=== PATIENT | female | born 1965 | race Caucasian/White ===

== ENCOUNTER 2016-03-23 12:17 | Inpatient (IN) ==
[2016-03-23] MEDS ORDERED: TORADOL IV SCH (15:00)
[2016-03-23] MEDS: PROTONIX IV SCH (15:45)
[2016-03-23] MEDS: SODIUM CHLORIDE 0.9% INJ SCH (15:45)
[2016-03-23] MEDS: LOVENOX SUBQ SCH (15:47)
[2016-03-23] MEDS ORDERED: NS 500 ML ONE (15:48)
[2016-03-23] MEDS: ZOSYN 3.375 GM/NS 50 ML IV SCH ×2 (15:48→20:34)
[2016-03-23 15:53] LABS: BASO% 0.1 % (0.0-0.8); EOS# 0.26 X1000 (0.0-0.7); EOS% 1.3 % (0.0-10.0); HEMATOCRIT 34.7 % (37.0-47.0); HEMOGLOBIN 11.4 g/dL (12.0-16.0); IMM GRAN# 0.07 X1000 (0.0-0.04); IMM GRAN% 0.3 % (0.0-0.5); LYMPH# 2.61 X1000 (1.2-3.4); MANUAL DIFF NEEDED? YES; MCH 29.5 PG (27-31); MCHC 32.9 g/dL (33-37); MCV 89.7 FL (81-99); MONO# 1.16 X1000 (0.11-0.59); MONO% 5.8 % (1.7-9.3); MPV 10.6 FL (7.4-10.4); NEUT% 79.5 % (42.2-75.2); PLT 303 X1000 (130-400); RBC 3.87 XMIL (4.2-5.4)
[2016-03-23 16:06] LABS: AGAP 14; BUN 7 mg/dL (8-22); CALCIUM 8.8 mg/dL (8.8-10.2); CHLORIDE 107 mmol/L (98-107); COSMO 285; LDH 411 U/L (135-214); POTASSIUM 3.3 mmol/L (3.5-5.1); SODIUM 144 mmol/L (136-145); TCO2 23 mmol/L (25-35)
[2016-03-23 16:07] LABS: BANDS 2 % (0-1); LYMPHS 12 % (21-51); MONO 10 % (1-9)
[2016-03-23] MEDS: NS 500 ML IV SCH (16:10)
[2016-03-23] MEDS: DUONEB (A & A) INH PRN ×2 (16:41→23:04)
[2016-03-23 16:48] LABS: SED RATE 54 mm/hr (0-20)
[2016-03-23 16:51] LABS: ALLEN TEST YES; BE -1.5 mmoll (-3.0-3.0); BLOOD TYPE ARTERIAL; DRAW SITE R RADIAL; METHB 1.5 % (0.0-1.5); MODALITY CANNULA; O2(CT) 21.2 mL/dL (15.0-23.0); PCO2(98.6) 37 mmHg (35-45); PO2(98.6) 64 mmHg (60-100); SAMPLE BLOOD; SAO2 95.2 % (95.0-100.0); THB 16.6 g/dL (11.5-17.4)
[2016-03-23] MEDS: LEVAQUIN 500 MG/D5W 100 ML IV SCH (17:14)
[2016-03-23] MEDS: TORADOL IV SCH ×2 (20:29→23:58)
[2016-03-23] MEDS ORDERED: KLOR-CON PO ONE (22:04)
--- NOTE | 2016-03-23 23:39 | HISTORY AND PHYSICAL ---
CHIEF COMPLAINT: Shortness of breath, cough, wheezing and back pain. HISTORY OF PRESENT ILLNESS: She is a 49-year-old, white female, who was evaluated on in my office with the above symptoms. She was treated with outpatient antibiotics. She is allergic to mold, causing extrinsic allergic alveolitis. Apparently, she did expose again and then started having this severe back pain, shortness of breath, cough, and wheezing. She was seen in my office today with worsening of infiltrates, hypoxemia, back pain, elevated white cell count. Chest x-ray right lower lobe infiltrate. Admitted to the hospital with aggressive bronchodilators, IV steroids, IV antibiotics, IV Toradol. As a result, a hospital admission was warranted. PAST MEDICAL HISTORY: Abnormal EKG with Q-waves in V1 and V2, chronic tobacco abuse, depression with anxiety, acid reflux disease, hypertension, menopause, nicotine dependency , vitamin B12 deficiency. PAST SURGICAL HISTORY: Bilateral reduction mammoplasty, cholecystectomy, hysterectomy, follow up on lung biopsy, left hip arthroplasty by Dr. Chawla. MEDICATIONS: Nexium 40 mg daily, Cymbalta 60 daily, Xanax 0.25 daily, tramadol 50 t.i.d., Levaquin. ALLERGIES: Not known. SOCIAL HISTORY: , 3 children. Self-employed. Smoking 1 pack a day for last 23 years. Living in [place]. No alcohol. FAMILY HISTORY: Father is 70 years old, having some diabetes complications. Mom of bypass complication at the age of 61. IMMUNIZATIONS: Flu vaccine, 01/2016, pneumonia 2008, mammography 2012, colonoscopy 2007. REVIEW OF SYSTEMS: HEENT: Slight headache. No vision problem. No earache, sore throat, sniffles, postnasal drainage. Neck: No goiter. No lymphadenopathy. No bruit. Cardiopulmonary: Cough, shortness of breath, wheezing, back pain. Breasts: No lumps. GI: No nausea, vomiting, abdominal pain. : No history of hesitancy, frequency. No swelling of feet. No joint pains. Neurologic: No focal symptoms or weakness. PHYSICAL EXAMINATION: VITAL SIGNS: Low grade fever, tachycardic. Height 5 feet, 3 inches. 164 pounds. On 3 L oxygen 97%. HEENT: Atraumatic, normocephalic. Pupils equal, react to light. TMs are normal. Nose and throat congested. NECK: Supple. JVD is normal. No goiter. No lymphadenopathy. CHEST: Bilateral wheezing and rhonchi. HEART: Sounds are tachycardic. GENITOURINARY: Belly is soft, nontender. Good bowel sounds. No masses palpable. EXTREMITIES: No peripheral edema, cyanosis or clubbing. NEUROLOGIC: Nonfocal. INVESTIGATIONS: CBC white cell count 20, hematocrit 34, platelets 303,000. ABG pH is 7.40, pCO2 of 37, PO2 of 64. SMA 7, sodium 144, potassium 3.3, LDH 411, proBNP is normal. Chest x-ray, bilateral infiltrates. 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 PLAN: 1. IV Levaquin, IV Zosyn. 2. Tobacco abuse. Nicotrol or cessation programs with a nicotine patch. 3. Hypokalemia, potassium replacement. 4. Dehydration with IV fluids. 5. Deep venous thrombosis prophylaxis with Lovenox. 6. Gastrointestinal prophylaxis with Protonix. 7. Ancillary support with bronchodilators and follow up on the labs in the morning. 8. Vaccinations were up-to-date. and reconcile home medications. [facility]
[2016-03-24] MEDS: ZOSYN 3.375 GM/NS 50 ML IV SCH ×4 (03:20→21:34)
[2016-03-24] MEDS: NS 500 ML IV SCH ×4 (03:20→23:46)
[2016-03-24] MEDS: TORADOL IV SCH ×5 (03:55→20:14)
[2016-03-24] MEDS: TYLENOL PO PRN (03:55)
[2016-03-24 05:50] LABS: MANUAL DIFF NEEDED? NO
[2016-03-24 05:52] LABS: BASO% 0.2 % (0.0-0.8); EOS# 0.14 X1000 (0.0-0.7); EOS% 0.8 % (0.0-10.0); HEMATOCRIT 32.5 % (37.0-47.0); HEMOGLOBIN 10.6 g/dL (12.0-16.0); IMM GRAN# 0.06 X1000 (0.0-0.04); IMM GRAN% 0.3 % (0.0-0.5); LYMPH# 1.48 X1000 (1.2-3.4); LYMPH% 8.3 % (20.5-51.1); MCH 29.8 PG (27-31); MCHC 32.6 g/dL (33-37); MCV 91.3 FL (81-99); MONO# 1.24 X1000 (0.11-0.59); MPV 10.4 FL (7.4-10.4); NEUT% 83.4 % (42.2-75.2); PLT 275 X1000 (130-400); RBC 3.56 XMIL (4.2-5.4)
[2016-03-24 06:14] LABS: AGAP 15; BUN 7 mg/dL (8-22); CALCIUM 8.3 mg/dL (8.8-10.2); CHLORIDE 107 mmol/L (98-107); COSMO 282; POTASSIUM 3.9 mmol/L (3.5-5.1); SODIUM 142 mmol/L (136-145); TCO2 20 mmol/L (25-35)
[2016-03-24] MEDS: NICODERM PATCH TD SCH (08:06)
--- NOTE | 2016-03-24 08:23 | Diag Imaging Result Document ---
PROCEDURE NAME: CHEST-2 VIEWS - 03/24/2016 CHEST X-RAY 2 VIEWS, 03/24/2016: COMPARISON: 01/09/2015. FINDINGS: There are new diffuse bilateral mixed infiltrates. Heart size is top normal. Stable surgical suture lines in the right mid lung. No pneumothorax or pleural effusion. IMPRESSION: Diffuse bilateral infiltrates compatible with pneumonia or pulmonary edema.
[2016-03-24] MEDS ORDERED: NUBAIN IM ONE (08:49)
[2016-03-24] MEDS: DUONEB (A & A) INH PRN ×3 (10:03→22:41)
[2016-03-24] MEDS: PROTONIX IV SCH (15:39)
[2016-03-24] MEDS: LOVENOX SUBQ SCH (15:40)
[2016-03-24] MEDS: SODIUM CHLORIDE 0.9% INJ SCH (15:40)
[2016-03-24] MEDS: LEVAQUIN 500 MG/D5W 100 ML IV SCH (17:02)
[2016-03-24] MEDS: ZOFRAN IV PRN (20:14)
[2016-03-24] MEDS ORDERED: LASIX IV ONE (20:49)
[2016-03-24] MEDS: XANAX PO SCH (21:34)
[2016-03-25] MEDS: NS 500 ML IV SCH ×3 (00:11→21:32)
[2016-03-25] MEDS: TORADOL IV SCH ×6 (00:11→16:35)
[2016-03-25] MEDS ORDERED: AYR NASAL DROPS NAS PRN (01:52)
[2016-03-25] MEDS: TYLENOL PO PRN ×3 (02:02→21:32)
[2016-03-25] MEDS: ZOSYN 3.375 GM/NS 50 ML IV SCH ×4 (03:06→21:33)
[2016-03-25] MEDS: DUONEB (A & A) INH PRN ×3 (08:03→21:33)
[2016-03-25] MEDS: NICODERM PATCH TD SCH (09:40)
[2016-03-25] MEDS: XANAX PO SCH ×2 (09:41→21:30)
[2016-03-25] MEDS ORDERED: LASIX IV ONE (11:05)
[2016-03-25] MEDS ORDERED: KLOR-CON PO ONE (11:06)
[2016-03-25] MEDS: PROTONIX IV SCH (16:34)
[2016-03-25] MEDS: SODIUM CHLORIDE 0.9% INJ SCH (16:34)
[2016-03-25] MEDS: LOVENOX SUBQ SCH (16:36)
[2016-03-25] MEDS: LEVAQUIN 500 MG/D5W 100 ML IV SCH (18:19)
[2016-03-25] MEDS: ZOFRAN IV PRN (21:36)
[2016-03-26] MEDS: NS 500 ML IV SCH ×4 (00:13→23:46)
[2016-03-26] MEDS: TORADOL IV SCH ×8 (00:13→22:41)
[2016-03-26] MEDS: TYLENOL PO PRN (02:52)
[2016-03-26] MEDS: ZOSYN 3.375 GM/NS 50 ML IV SCH ×4 (02:56→22:42)
[2016-03-26] MEDS: DUONEB (A & A) INH PRN ×3 (03:47→20:11)
[2016-03-26 05:55] LABS: MANUAL DIFF NEEDED? NO
[2016-03-26 06:02] LABS: BASO% 0.2 % (0.0-0.8); EOS# 0.69 X1000 (0.0-0.7); EOS% 4.3 % (0.0-10.0); HEMATOCRIT 34.5 % (37.0-47.0); HEMOGLOBIN 11.3 g/dL (12.0-16.0); IMM GRAN# 0.06 X1000 (0.0-0.04); IMM GRAN% 0.4 % (0.0-0.5); LYMPH# 1.36 X1000 (1.2-3.4); LYMPH% 8.5 % (20.5-51.1); MCH 29.4 PG (27-31); MCHC 32.8 g/dL (33-37); MCV 89.8 FL (81-99); MONO# 1.08 X1000 (0.11-0.59); MONO% 6.7 % (1.7-9.3); MPV 10.9 FL (7.4-10.4); NEUT% 79.9 % (42.2-75.2); PLT 292 X1000 (130-400); RBC 3.84 XMIL (4.2-5.4)
[2016-03-26 06:49] LABS: POTASSIUM 3.8 mmol/L (3.5-5.1)
--- NOTE | 2016-03-26 09:22 | Diag Imaging Result Document ---
PROCEDURE NAME: CHEST-2 VIEWS - 03/26/2016 PA AND LATERAL RADIOGRAPHS OF THE CHEST: COMPARISON: 03/24/2016. FINDINGS: There has been interval slight improvement of infiltrates bilaterally, especially at the lung bases. No new consolidations are appreciated. Cardiac silhouette is stable. IMPRESSION: Interval slight improvement of bilateral infiltrates.
[2016-03-26] MEDS: XANAX PO SCH ×2 (10:27→22:42)
[2016-03-26] MEDS: NICODERM PATCH TD SCH (10:27)
--- NOTE | 2016-03-26 10:50 | PROGRESS NOTE ---
DATE: 03/26/2016 SUBJECTIVE: The patient says she does not feel real well. She still has been coughing but she wants to go home. I suggested that she is not quite ready to go home from a medical standpoint. OBJECTIVE: Vital Signs: Temperature 98.4 degrees Fahrenheit, pulse 104 and regular, respirations 18, blood pressure 102/37. HEENT: She is normocephalic. Tympanic membranes intact. Neck: Supple. Lungs: Have scattered rales with occasional popping and wheezing. Heart: Regular rate and rhythm without murmurs, gallops, or friction rubs. Abdomen: Soft. Active bowel sounds. No organomegaly or tenderness. Neurological Examination: Intact grossly. ASSESSMENT: Acute extrinsic alveolitis versus pneumonia. Chest x-ray showed bilateral infiltrates. She has had diagnosis made at [facility] about the alveolitis after mold exposure. PLAN: Continue IV antibiotics. She was given IM steroids recently in Dr. Driver's office according to her.
[2016-03-26] MEDS: LOVENOX SUBQ SCH (15:22)
[2016-03-26] MEDS: SODIUM CHLORIDE 0.9% INJ SCH (15:22)
[2016-03-26] MEDS: PROTONIX IV SCH (15:22)
[2016-03-26] MEDS: LEVAQUIN 500 MG/D5W 100 ML IV SCH (16:45)
[2016-03-26] MEDS: ZOFRAN IV PRN (22:48)
[2016-03-27] MEDS: DUONEB (A & A) INH PRN ×3 (01:20→20:14)
[2016-03-27] MEDS: TORADOL IV SCH ×6 (01:29→21:46)
[2016-03-27] MEDS: NS 500 ML IV SCH ×3 (01:29→21:47)
[2016-03-27] MEDS ORDERED: LASIX IV ONE (01:39)
[2016-03-27] MEDS ORDERED: SALINE LOCK IV FLUID XX ONE (01:39)
[2016-03-27] MEDS: ZOFRAN IV PRN (01:47)
[2016-03-27] MEDS: ZOSYN 3.375 GM/NS 50 ML IV SCH ×4 (04:01→21:46)
[2016-03-27 06:13] LABS: MANUAL DIFF NEEDED? NO
[2016-03-27 06:19] LABS: BASO% 0.5 % (0.0-0.8); EOS# 1.09 X1000 (0.0-0.7); EOS% 8.8 % (0.0-10.0); HEMATOCRIT 32.8 % (37.0-47.0); HEMOGLOBIN 10.6 g/dL (12.0-16.0); IMM GRAN# 0.03 X1000 (0.0-0.04); IMM GRAN% 0.2 % (0.0-0.5); LYMPH# 1.84 X1000 (1.2-3.4); LYMPH% 14.8 % (20.5-51.1); MCH 29.2 PG (27-31); MCHC 32.3 g/dL (33-37); MCV 90.4 FL (81-99); MONO# 0.98 X1000 (0.11-0.59); MONO% 7.9 % (1.7-9.3); MPV 10.1 FL (7.4-10.4); NEUT% 67.8 % (42.2-75.2); PLT 334 X1000 (130-400); RBC 3.63 XMIL (4.2-5.4)
[2016-03-27 06:33] LABS: AGAP 15; BUN 8 mg/dL (8-22); CALCIUM 9.2 mg/dL (8.8-10.2); CHLORIDE 104 mmol/L (98-107); COSMO 288; POTASSIUM 3.3 mmol/L (3.5-5.1); SODIUM 145 mmol/L (136-145); TCO2 26 mmol/L (25-35)
[2016-03-27] MEDS: XANAX PO SCH ×2 (09:36→21:45)
[2016-03-27] MEDS: NICODERM PATCH TD SCH (09:37)
--- NOTE | 2016-03-27 10:03 | Diag Imaging Result Document ---
PROCEDURE NAME: CHEST-2 VIEWS - 03/27/2016 PA AND LATERAL RADIOGRAPH OF THE CHEST: COMPARISON: 03/26/2016. FINDINGS: Inspiration is suboptimal. Bilateral predominantly interstitial infiltrates and atelectasis is stable. No new consolidations are identified. Cardiac silhouette is stable. IMPRESSION: Stable chest.
--- NOTE | 2016-03-27 11:46 | PROGRESS NOTE ---
DATE: 03/27/2016 SUBJECTIVE: The patient was sleepy. I had to wake her up but she did wake up easily. She did not want talk much at this time. I asked her if she was feeling better. She says she was feeling better with her breathing. OBJECTIVE: Vital Signs: Blood pressure 100/52, respirations 17, pulse 86, temperature 98.4 degrees Fahrenheit. HEENT: She is normocephalic. EOMs intact. PERRLA. Throat clear. Lungs: Fairly clear to auscultation at this time. Chest x-ray still shows bilateral lobe pneumonia. Heart: Regular rate rhythm without murmurs, gallops, or friction rubs. Abdomen: Soft. Active bowel sounds. No organomegaly or tenderness. Neurological: Examination intact grossly. Laboratory Data: Potassium was a little low today after giving her Lasix with a potassium of 3.3. We will supplement. ASSESSMENT: 1. Allergic alveolitis from mold. 2. Pneumonia. 3. Hypokalemia. PLAN: Continue support and treat potassium.
[2016-03-27] MEDS: PROTONIX IV SCH (17:52)
[2016-03-27] MEDS: LOVENOX SUBQ SCH (17:52)
[2016-03-27] MEDS: LEVAQUIN 500 MG/D5W 100 ML IV SCH (21:44)
[2016-03-27] MEDS: KLOR-CON PO SCH (21:45)
[2016-03-28] MEDS: TORADOL IV SCH (01:11)
[2016-03-28 06:00] LABS: BASO% 1.3 % (0.0-0.8); EOS# 1.11 X1000 (0.0-0.7); HEMATOCRIT 34.1 % (37.0-47.0); HEMOGLOBIN 10.8 g/dL (12.0-16.0); IMM GRAN# 0.06 X1000 (0.0-0.04); IMM GRAN% 0.5 % (0.0-0.5); LYMPH# 2.75 X1000 (1.2-3.4); LYMPH% 24.8 % (20.5-51.1); MANUAL DIFF NEEDED? YES; MCH 28.6 PG (27-31); MCHC 31.7 g/dL (33-37); MCV 90.5 FL (81-99); MONO# 0.87 X1000 (0.11-0.59); MONO% 7.8 % (1.7-9.3); MPV 10.7 FL (7.4-10.4); NEUT% 55.6 % (42.2-75.2); PLT 346 X1000 (130-400); RBC 3.77 XMIL (4.2-5.4)
[2016-03-28 06:10] LABS: AGAP 15; BUN 8 mg/dL (8-22); CALCIUM 9.1 mg/dL (8.8-10.2); CHLORIDE 103 mmol/L (98-107); COSMO 282; POTASSIUM 3.3 mmol/L (3.5-5.1); SODIUM 142 mmol/L (136-145); TCO2 24 mmol/L (25-35)
[2016-03-28] MEDS: NS 500 ML IV SCH (06:31)
[2016-03-28] MEDS: ZOSYN 3.375 GM/NS 50 ML IV SCH (06:31)
[2016-03-28 06:33] LABS: BASO 2 % (0-1); EOS 20 % (1-10); LYMPHS 26 % (21-51)
[2016-03-28] MEDS: DUONEB (A & A) INH PRN (07:27)
[2016-03-28] MEDS ORDERED: MEDROL PO SCH (08:00)
[2016-03-28 08:42] VITALS: BP 135/66
[2016-03-28] MEDS ORDERED: MEDROL DOSEPAK PO SCH (08:45)
--- NOTE | 2016-03-28 08:48 | Diag Imaging Result Document ---
PROCEDURE NAME: CHEST-2 VIEWS - 03/28/2016 CHEST TWO VIEWS: FINDINGS: The lungs are slightly better expanded than on 03/27/2016. There are still linear opacities in the lingula and right middle lobe. Overall, the appearance of the chest has not changed significantly since 03/27/2016 and is improved since 03/24/2016. IMPRESSION: Residual atelectasis.
[2016-03-28] MEDS: KLOR-CON PO SCH (08:55)
[2016-03-28] MEDS: XANAX PO SCH (08:55)
[2016-03-28] MEDS: NICODERM PATCH TD SCH (08:56)
[2016-03-28] MEDS ORDERED: LEVAQUIN PO ONE (21:00)
[2016-03-28] MEDS ORDERED: LEVAQUIN PO SCH (21:00)
--- NOTE | 2016-03-28 21:59 | DISCHARGE SUMMARY ---
ADMISSION DATE: 03/23/2016 DISCHARGE DATE: 03/28/2016 DISCHARGING DIAGNOSIS: Acute hypoxic failure due to bilateral infiltrates due to extrinsic allergic alveolitis from the mold. SECONDARY DIAGNOSIS: 1. Chronic tobacco abuse. 2. Anxiety and depression. 3. Acid reflux disease. 4. Menopause. 5. Vitamin B12 deficiency. 6. Abnormal electrocardiogram with Q-waves in V1 and V2. BRIEF HISTORY: Please see the H and P that was done on 03/23/2016. In brief, she is a 49-year- old, white female, with a known history of allergy to mold was admitted to the hospital from my office with shortness of breath, cough, and wheezing. X-ray showed bilateral infiltrates, hypoxemia, elevated white cell count. Patient was found to have dehydration with hypokalemia. HOSPITAL COURSE: She was given oxygen, bronchodilators, IV steroids, IV antibiotics. Ancillary support was given. IV fluids with potassium replacement. Follow up chest x-ray, improvement of the interstitial infiltrates. Patient was advised to quit smoking. Not to expose to mold. LABORATORY DATA: At the time of discharge, white cell count 11, hematocrit 34, platelets 346,000. ABG: PH is 7.40, pCO2 37, PO2 64. SMA 7: Sodium 142, potassium 3.3, chloride 103, BUN 8, creatinine 0.9, glucose 105, proBNP 252, LDH is high. Patient is refusing her blood gas at the time of discharge. Pulse oximetry 87%. Flu vaccine in 2015. Pneumococcal vaccine 2014. Patient was discharged home with the following instructions: 1. Not to expose to mold. 2. Outpatient oxygen 2 L. 3. Quit smoking. 4. Flu vaccine 2015, pneumonia in 2014. 5. Ultram 100 p.o. t.i.d., Xanax 0.5 p.o. b.i.d., Medrol Dosepak, Levaquin 500 daily for 10 days, Zofran for p.r.n. nausea, Poly Hist DM for cough, Breo 1 capsule inhalation daily. 6. Follow up in my office next week for oxygen level, chest x-ray. [facility]
[2016-03-29] MEDS ORDERED: PRILOSEC PO SCH (07:00)
[2016-03-29] MEDS ORDERED: MEDROL PO SCH (08:00)
[2016-03-29] MEDS ORDERED: MEDROL PO ONE (12:00)
[2016-03-30] MEDS ORDERED: MEDROL PO SCH (08:00)
[2016-03-31] MEDS ORDERED: MEDROL PO SCH (08:00)
[2016-04-01] MEDS ORDERED: MEDROL PO SCH (08:00)
[2016-04-02] MEDS ORDERED: MEDROL PO ONE (09:00)
== END 2016-03-28 09:59 | disposition home or self-care (01) | DRG 196 ==
LOC: 4N 13:27
PROVIDERS: ADMIT Internal Medicine; ATTEND Internal Medicine
DX: J67.9 Hypersensitivity pneumonitis due to unspecified organic dust (principal); J96.01 Acute respiratory failure with hypoxia; I10 Essential (primary) hypertension; E53.8 Deficiency of other specified B group vitamins; Z96.642 Presence of left artificial hip joint; F41.8 Other specified anxiety disorders; K21.9 Gastro-esophageal reflux disease without esophagitis; F17.210 Nicotine dependence, cigarettes, uncomplicated; Z83.3 Family history of diabetes mellitus; E87.6 Hypokalemia; E86.0 Dehydration; Z79.899 Other long term (current) drug therapy
CPT/HCPCS: 71020; 80048; 82805; 83615; 83880; 85025; 85651; 94640; 94761; C9113; J1650; J1885; J1940; J2300; J2405; J2543; J7040; S0164

== ENCOUNTER 2018-11-06 14:54 | Inpatient (IN) ==
--- NOTE | 2018-11-06 16:35 | Diag Imaging Result Doc PS360 ---
EXAM: CHEST-2 VIEWS HISTORY: SOB TECHNIQUE: Chest two views COMPARISON: 10/10/2018 FINDINGS: The lungs are well expanded. There are mild increased interstitial markings on the current exam. No pleural effusions. No cardiomegaly. There are sutures in the mid right lung.. IMPRESSION: Small infiltrates versus pulmonary edema Electronically signed by Celio Garcia 11/06/2018 4:32 PM
[2018-11-06 16:49] LABS: ALLEN TEST YES; BE -0.7 mmoll (-3.0-3.0); BLOOD TYPE ARTERIAL; HCO3-(ACT) 24.3 mmoll (20.0-26.0); METHB 1.7 % (0.0-1.5); O2(CT) 14.3 mL/dL (15.0-23.0); O2HB 93.2 % (95.0-99.0); PCO2(98.6) 34 mmHg (35-45); PO2(98.6) 71 mmHg (60-100); SAMPLE BLOOD; SAO2 97.2 % (95.0-100.0); THB 10.9 g/dL (11.5-17.4); pH(98.6) 7.44 (7.35-7.45)
[2018-11-06 16:50] LABS: MODALITY CANNULA
[2018-11-06] MEDS ORDERED: ZOFRAN IV PRN (18:49)
[2018-11-06] MEDS ORDERED: DUONEB (A & A) INH PRN (18:49)
[2018-11-06] MEDS ORDERED: SODIUM CHLORIDE 0.9% INJ SCH (19:00)
[2018-11-06] MEDS: LEVAQUIN 500 MG/D5W 500 MG/100 ML IVPB IV SCH (19:39)
[2018-11-06] MEDS: TORADOL IV PRN (19:39)
[2018-11-06] MEDS: SOLU-MEDROL IV SCH (21:00)
[2018-11-06] MEDS: RISPERDAL PO SCH (21:00)
[2018-11-06] MEDS: DEPAKOTE ER PO SCH (21:00)
[2018-11-06] MEDS: LOVENOX SUBQ SCH (21:00)
--- NOTE | 2018-11-06 21:08 | HISTORY AND PHYSICAL ---
CHIEF COMPLAINT: Shortness of breath, elevated white cell count, left lower lobe pneumonia. HISTORY OF PRESENT ILLNESS: She is a 52-year-old white female who is well known to my practice. Had left rib injury, subsequently developing chest pain, shortness of breath, wheezing. She was treated outpatient since 2 days ago. White cell count is 21,000. More pain with impending sepsis. Basically admitted to the hospital with IV antibiotics, IV steroids, incentive spirometry. 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 She recently had some bipolar depression, admitted at [facility]. PAST MEDICAL HISTORY: 1. Abnormal EKG, with Q-waves in V1 and V2. 2. Chronic tobacco abuse. 3. Bipolar disorder with depression. 4. Chronic anxiety. 5. Acid reflux disease. 6. Hypertension. 7. Nicotine dependency. 8. B12 deficiency. 9. Menopause. PAST SURGICAL HISTORY: 1. Bilateral reduction mammoplasty. 2. Cholecystectomy. 3. Hysterectomy. 4. Left brachial cyst repair. 5. Left hip replacement. ALLERGIES: Reported to questionable penicillin, mostly with Rocephin, some localized pain and rash. SOCIAL HISTORY: ; 3 children; self-employed. Off and on smoking. No drugs. No alcohol abuse. FAMILY HISTORY: Father is 80-year-old with diabetes. Mom of bypass complication at the age of 61. MEDICATIONS: 1. Cymbalta 30 mg daily. 2. Depakote 500 p.o. b.i.d. 3. Risperdal 2 mg p.o. b.i.d. 4. B12 in tablets daily. 5. Nexium 20 mg daily. 6. Recently was treated outpatient with antibiotics. REVIEW OF SYSTEMS: HEENT: No headache, no vision problem, no earache, no sore throat. Neck: No goiter, no lymphadenopathy, no masses. Cardiopulmonary: Basically, left-sided chest pain, shortness of breath, cough, and wheezing. GI: History of acid reflux disease. No nausea, dysphagia, altered bowel habits, bleeding per rectum. : No history of hesitancy, frequency, dysuria. Extremities: No swelling of legs. No joint pain. Neurologic: No focal symptoms or weakness. PHYSICAL EXAMINATION: VITAL SIGNS: Low grade fever. Tachycardic. Vitals are stable. 5 feet 3 inches. 153 pounds. HEENT: Atraumatic, normocephalic. Pupils equal, react to light. TMs are normal. Nose and throat within normal limits. NECK: Supple. No lymphadenopathy. JVD is not elevated. CHEST: Bilateral air entry with crackles, rhonchi, and squeaks noted. HEART: Distant heart sounds. ABDOMEN: Belly is soft, nontender. Good bowel sounds. EXTREMITIES: No peripheral edema, cyanosis. NEUROLOGIC: No obvious neurological deficits. INVESTIGATIONS IN MY OFFICE: CBC: White cell count 20,000, which is increased from yesterday from 15,000. SMA 7 is normal. CK is negative. ABG: pH is 7.44, pCO2 34, pO2 71. Chest x-ray: Left lower lobe infiltrate and 10th rib fracture on the lateral view a week ago. ASSESSMENT AND PLAN: A 52-year-old white female admitted to the hospital with: 1. 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 Plan is oxygen, incentive spirometer, intravenous antibiotics with Levaquin. 2. Bipolar disorder. Continue the medicines as per Dr. Tamayo. 3. Pain control with Toradol. 4. Deep venous thrombosis and gastrointestinal prophylaxis as per order sheet with Lovenox and intravenous Nexium. 5. Follow up on the pending labs in the morning. cc: Mauricio Driver MD
[2018-11-06] MEDS: NEXIUM IV SCH (21:10)
[2018-11-07] MEDS: SOLU-MEDROL IV SCH ×3 (02:51→18:30)
[2018-11-07 06:54] LABS: BASO# 0.01 X1000 (0.0-0.2); BASO% 0.1 % (0.0-0.8); EOS# 0.01 X1000 (0.0-0.7); EOS% 0.1 % (0.0-10.0); HEMATOCRIT 33.6 % (37.0-47.0); HEMOGLOBIN 11.1 g/dL (12.0-16.0); IMM GRAN# 0.04 X1000 (0.0-0.04); IMM GRAN% 0.2 % (0.0-0.5); LYMPH# 0.88 X1000 (1.2-3.4); LYMPH% 5.2 % (20.5-51.1); MCV 90.8 FL (81-99); MONO# 0.61 X1000 (0.11-0.59); MONO% 3.6 % (1.7-9.3); MPV 9.2 FL (7.4-10.4); NEUT% 90.8 % (42.2-75.2); PLT 557 X1000 (130-400); RDW 13.4 % (11.5-14.5); WBC 17.05 X1000 (4.8-10.8)
[2018-11-07 07:12] LABS: AGAP 13; ALB/GLOB RATIO 0.9; ALBUMIN 3.6 g/dL (3.5-5.0); ALKALINE PHOSPHATASE 76 U/L (32-104); BUN 21 mg/dL (8-22); CALCIUM 9.5 mg/dL (8.8-10.2); CHLORIDE 93 mmol/L (98-107); COSMO 258; ESTIMATED GFR 59; GLUCOSE 127 mg/dL (70-104); GOT 18 U/L (10-30); GPT < 5 U/L (10-36); SODIUM 126 mmol/L (136-145); TCO2 20 mmol/L (25-35); TOTAL BILIRUBIN 0.29 mg/dL (0.20-1.00); TOTAL PROTEIN 7.8 g/dL (6.3-8.3)
[2018-11-07 07:15] LABS: POTASSIUM 6.4 mmol/L (3.5-5.1)
[2018-11-07 07:25] LABS: BANDS 2 % (0-1); LYMPHS 8 % (21-51); SEGS 90 % (42-75)
[2018-11-07] MEDS ORDERED: KAYEXALATE PO ONE (07:29)
[2018-11-07 07:42] LABS: SED RATE 20 mm/hr (0-20)
[2018-11-07] MEDS: NS 1,000 ML IV SCH ×2 (07:54→19:55)
[2018-11-07] MEDS: RISPERDAL PO SCH ×3 (08:31→20:04)
[2018-11-07] MEDS: CYMBALTA PO SCH (08:31)
[2018-11-07] MEDS: DEPAKOTE ER PO SCH ×3 (08:31→20:04)
[2018-11-07] MEDS: VITAMIN B-12 PO SCH (08:31)
[2018-11-07] MEDS: LOVENOX SUBQ SCH (18:30)
[2018-11-07] MEDS: NEXIUM IV SCH (18:30)
[2018-11-07] MEDS: LEVAQUIN 500 MG/D5W 500 MG/100 ML IVPB IV SCH (19:55)
[2018-11-07] MEDS: TORADOL IV PRN (20:16)
--- NOTE | 2018-11-07 21:42 | PROGRESS NOTE ---
DATE: 11/07/2018 SUBJECTIVE: This morning, patient is resting very well. I spoke with the nurse and let her sleep. Labs were reviewed and pain is adequately controlled. OBJECTIVE: Temperature is 98. Vitals are stable. 95% on room air. Physical exam is no change since the patient is sleeping. INVESTIGATIONS: CBC: White cell count 17, hematocrit 33, platelets 557,000. ABGs: pO2 71 on 3 L. Sodium 126, potassium 6.4, BUN 21, creatinine 1.0, glucose 127. ProBNP 520. Cardiac enzymes are negative. Cortisol 10.4. ASSESSMENT AND PLAN: 1. Hyponatremia, hyperkalemia. Check that cortisol levels are normal. 2. Left 10th rib fracture, on Toradol as needed. 3. Hypostatic pneumonia. Oxygen, and continue Levaquin. 4. Bipolar. Continue home medications. 5. Hyponatremia. Intravenous fluids and will check the labs in the morning, CBC and SMA 7, and will follow up. LEVEL OF DOCUMENTATION: 25 minutes. cc: Mauricio Driver MD
[2018-11-08] MEDS: SOLU-MEDROL IV SCH ×3 (03:00→18:12)
[2018-11-08 06:56] LABS: BASO# 0.01 X1000 (0.0-0.2); BASO% 0.1 % (0.0-0.8); IMM GRAN# 0.06 X1000 (0.0-0.04); IMM GRAN% 0.3 % (0.0-0.5); LYMPH# 1.19 X1000 (1.2-3.4); LYMPH% 6.3 % (20.5-51.1); MCH 29.7 PG (27-31); MCHC 32.3 g/dL (33-37); MONO# 1.47 X1000 (0.11-0.59); MONO% 7.7 % (1.7-9.3); MPV 9.4 FL (7.4-10.4); NEUT# 16.26 X1000 (1.4-6.5); NEUT% 85.6 % (42.2-75.2); PLT 530 X1000 (130-400); RBC 3.37 XMIL (4.2-5.4); RDW 13.4 % (11.5-14.5); WBC 18.99 X1000 (4.8-10.8)
[2018-11-08 07:16] LABS: AGAP 13; BUN 24 mg/dL (8-22); CALCIUM 7.8 mg/dL (8.8-10.2); CHLORIDE 98 mmol/L (98-107); COSMO 276; CREATININE 0.7 mg/dL (0.5-0.9); ESTIMATED GFR > 60; GLUCOSE 128 mg/dL (70-104); POTASSIUM 4.9 mmol/L (3.5-5.1); SODIUM 135 mmol/L (136-145); TCO2 24 mmol/L (25-35)
[2018-11-08 07:39] LABS: LYMPHS 6 % (21-51); MONO 7 % (1-9); SEGS 87 % (42-75)
[2018-11-08] MEDS: VITAMIN B-12 PO SCH (08:41)
[2018-11-08] MEDS: CYMBALTA PO SCH (08:42)
[2018-11-08] MEDS: DEPAKOTE ER PO SCH ×2 (08:42→20:04)
[2018-11-08] MEDS: RISPERDAL PO SCH ×2 (08:42→20:04)
[2018-11-08] MEDS: NS 1,000 ML IV SCH (12:08)
[2018-11-08] MEDS: TORADOL IV PRN (14:12)
[2018-11-08] MEDS: LOVENOX SUBQ SCH (18:12)
[2018-11-08] MEDS: NEXIUM IV SCH (18:12)
[2018-11-08] MEDS: LEVAQUIN 500 MG/D5W 500 MG/100 ML IVPB IV SCH (20:05)
--- NOTE | 2018-11-08 21:17 | PROGRESS NOTE ---
DATE: 11/08/2018 SUBJECTIVE: The patient is a little better, eating well and sleeping all the time in the morning. Her pain is adequately controlled. OBJECTIVE: Vital Signs: Temperature is 98 degrees. Vitals are stable. She is 80% on room air, still hypoxic. HEENT: Within normal limits. Decreased crackles. Improved air entry. Heart: Sounds are regular. Neurologic: No neurological deficits. INVESTIGATIONS: White cell count 18.9, hematocrit 31, platelets 530,000. Sodium 135, potassium 4.9, BUN 24, creatinine 0.7, calcium 8.7. Cardizem levels were normal. ASSESSMENT AND PLAN: 1. Electrolytic abnormalities, hyponatremia, improving. 2. Bipolar, stable. 3. Left lower lobe pneumonia with hypostatic pneumonia, elevated white cell count. Continue on intravenous Levaquin, and I am going to cut down the prednisone. Will repeat the chest x-ray and blood pressure in the morning. Continue incentive spirometry. LEVEL OF DOCUMENTATION: 25 minutes. cc: Mauricio Driver MD
[2018-11-09] MEDS: NS 1,000 ML IV SCH ×2 (03:26→09:49)
[2018-11-09 06:12] LABS: BASO# 0.01 X1000 (0.0-0.2); BASO% 0.1 % (0.0-0.8); HEMATOCRIT 28.8 % (37.0-47.0); HEMOGLOBIN 9.3 g/dL (12.0-16.0); IMM GRAN# 0.11 X1000 (0.0-0.04); IMM GRAN% 0.6 % (0.0-0.5); LYMPH# 2.09 X1000 (1.2-3.4); LYMPH% 11.9 % (20.5-51.1); MCHC 32.3 g/dL (33-37); MCV 92.9 FL (81-99); MONO# 1.97 X1000 (0.11-0.59); MONO% 11.2 % (1.7-9.3); MPV 9.3 FL (7.4-10.4); NEUT# 13.38 X1000 (1.4-6.5); NEUT% 76.2 % (42.2-75.2); PLT 509 X1000 (130-400); RDW 13.3 % (11.5-14.5); WBC 17.56 X1000 (4.8-10.8)
[2018-11-09 06:27] LABS: AGAP 12; BUN 21 mg/dL (8-22); CALCIUM 8.5 mg/dL (8.8-10.2); CHLORIDE 99 mmol/L (98-107); COSMO 271; CREATININE 0.8 mg/dL (0.5-0.9); ESTIMATED GFR > 60; GLUCOSE 136 mg/dL (70-104); POTASSIUM 4.3 mmol/L (3.5-5.1); SODIUM 133 mmol/L (136-145); TCO2 22 mmol/L (25-35)
[2018-11-09 07:30] VITALS: BP 136/71
--- NOTE | 2018-11-09 08:13 | Diag Imaging Result Doc PS360 ---
CHEST-2 VIEWS - 11/09/2018 INDICATION: hypoxia COMPARISON: 11/06/2018 FINDINGS: Stable low lung volumes. Stable pulmonary vascular congestion. There is improvement in the patchy infiltrates in the lung bases bilaterally. No new infiltrates. No pneumothorax or pleural effusion. IMPRESSION: Slight improvement in the patchy infiltrates in the lung bases. Electronically signed by Shan Tong 11/09/2018 8:10 AM
[2018-11-09] MEDS: DEPAKOTE ER PO SCH (08:15)
[2018-11-09] MEDS: RISPERDAL PO SCH (08:15)
[2018-11-09] MEDS: CYMBALTA PO SCH (08:15)
[2018-11-09] MEDS: VITAMIN B-12 PO SCH (08:15)
[2018-11-09] MEDS ORDERED: PREVNAR 13 IM ONE (08:27)
[2018-11-09] MEDS ORDERED: SOLU-MEDROL IV SCH (09:00)
--- NOTE | 2018-11-17 16:29 | DISCHARGE SUMMARY ---
ADMISSION DATE: 11/06/2018 DISCHARGE DATE: 11/09/2018 DISCHARGING DIAGNOSIS: Left lower lobe pneumonia. SECONDARY DIAGNOSES: 1. Abnormal EKGs Q, V1 and V2. 2. Chronic tobacco abuse. 3. Bipolar. 4. Chronic anxiety. 5. Acid reflux disease. 6. Hypertension. 7. Nicotine dependency. 8. B12 deficiency. 9. Postmenopausal. BRIEF HISTORY: Please see the H P that was done on 11/06/2018. In brief, she is a 52-year-old white female recently admitted at [facility] for bipolar disorder exacerbation, doing well, had a lot of stress with the family and was seen initially in the office with left 10th rib fracture. Subsequently developed a hypostatic pneumonia. The patient failed to improve. As a result, admitted to the hospital for aggressive bronchial toilet and IV antibiotics. The patient was given incentive spirometry, bronchodilators, pain control, IV antibiotics. Follow up. The patient is slowly improving. In the meantime, patient is anxious to go home. By the time I came to the floor, she is dressed up and wants to go home and at the request, the patient is discharged. LABS: White cell count 17, hematocrit 28, platelets 509,000. Sodium 133, potassium 4.3, BUN 21, creatinine 0.8, glucose 136. ProBNP 520. Cortisol level 10.4. Chest x-ray slowly improving. DISCHARGE INSTRUCTIONS: Are as follows: Duloxetine 30 mg daily, Depakote 500 p.o. b.i.d., Risperdal 2 mg p.o. b.i.d., B12 1000 mcg daily, Nexium 20 daily, Levaquin 500 daily, Breo 1 puff daily. Incentive spirometry. Follow up in my office in 10 days. cc: Mauricio Driver MD
== END 2018-11-09 09:54 | disposition home or self-care (01) | DRG 189 ==
LOC: DIRADM 14:54 → EDIPHOLD 15:56 → 3N 18:30
PROVIDERS: ADMIT Internal Medicine; ATTEND Internal Medicine

== ENCOUNTER 2018-11-09 14:20 | Inpatient (IN) ==
[2018-11-09] MEDS ORDERED: ZOFRAN IV PRN (15:43)
[2018-11-09] MEDS ORDERED: HUMULIN R SUBQ SCH (16:00)
[2018-11-09] MEDS ORDERED: ATIVAN IV ONE (16:16)
[2018-11-09 16:29] LABS: BASO# 0.04 X1000 (0.0-0.2); BASO% 0.2 % (0.0-0.8); EOS# 0.15 X1000 (0.0-0.7); EOS% 0.8 % (0.0-10.0); HEMATOCRIT 32.3 % (37.0-47.0); HEMOGLOBIN 10.5 g/dL (12.0-16.0); IMM GRAN# 0.11 X1000 (0.0-0.04); IMM GRAN% 0.6 % (0.0-0.5); LYMPH# 3.62 X1000 (1.2-3.4); LYMPH% 18.7 % (20.5-51.1); MCHC 32.5 g/dL (33-37); MCV 92.3 FL (81-99); MONO# 1.85 X1000 (0.11-0.59); MONO% 9.6 % (1.7-9.3); NEUT% 70.1 % (42.2-75.2); PLT 572 X1000 (130-400); RDW 13.3 % (11.5-14.5); WBC 19.37 X1000 (4.8-10.8)
[2018-11-09] MEDS: SODIUM CHLORIDE 0.9% INJ SCH (16:31)
[2018-11-09] MEDS: LOVENOX SUBQ SCH (16:31)
[2018-11-09] MEDS: LEVAQUIN 500 MG/D5W 500 MG/100 ML IVPB IV SCH (16:31)
[2018-11-09] MEDS: PROTONIX IV SCH (16:31)
[2018-11-09] MEDS: SOLU-MEDROL IV SCH (16:31)
[2018-11-09 17:00] LABS: AGAP 12; ALB/GLOB RATIO 1.1; ALBUMIN 3.3 g/dL (3.5-5.0); ALKALINE PHOSPHATASE 63 U/L (32-104); BUN 20 mg/dL (8-22); CALCIUM 9.1 mg/dL (8.8-10.2); CHLORIDE 100 mmol/L (98-107); CK PROFILE 35 U/L (24-173); COSMO 272; CREATININE 0.9 mg/dL (0.5-0.9); ESTIMATED GFR > 60; GLUCOSE 81 mg/dL (70-104); GOT 22 U/L (10-30); GPT 10 U/L (10-36); POTASSIUM 4.2 mmol/L (3.5-5.1); SODIUM 135 mmol/L (136-145); TCO2 23 mmol/L (25-35); TOTAL BILIRUBIN 0.23 mg/dL (0.20-1.00); TOTAL PROTEIN 6.2 g/dL (6.3-8.3)
[2018-11-09] MEDS ORDERED: LASIX IV ONE (17:25)
[2018-11-09] MEDS: AZACTAM 1 GM in NS 50 ML IV SCH (17:50)
--- NOTE | 2018-11-09 18:31 | EKG Report ---
Test Performed on : 11/09/2018 6:07:15 PM Test Reason : chest pain Blood Pressure : / mmHG Vent. Rate : 082 BPM Atrial Rate : 082 BPM P-R Int : 164 ms QRS Dur : 082 ms QT Int : 350 ms P-R-T Axes : 050 047 043 degrees QTc Int : 408 ms Normal sinus rhythm. Normal ECG When compared with ECG of 10-OCT-2018 17:08, (Unconfirmed) No significant change was found Confirmed by Suraj Demarco MD ([id number]) on 11/13/2018 8:28:16 AM
[2018-11-09 19:08] LABS: UR AMPHETAMINES QUAL NONE DETECTED (NONE DETECT); UR BARBITUATES QUAL NONE DETECTED (NONE DETECT); UR BENZODIAZEPIN QUAL NONE DETECTED (NONE DETECT); UR CANNABINOIDS QUAL NONE DETECTED (NONE DETECT); UR COCAINE QUAL NONE DETECTED (NONE DETECT); UR METHADONE QUAL NONE DETECTED (NONE DETECT); UR OPIATES QUAL NONE DETECTED (NONE DETECT); UR OXYCODONE QUAL NONE DETECTED (NONE DETECT); UR PCP QUAL NONE DETECTED (NONE DETECT)
[2018-11-09] MEDS: ATIVAN IV PRN (20:06)
[2018-11-09] MEDS: RISPERDAL PO SCH (21:43)
[2018-11-09] MEDS: DEPAKOTE ER PO SCH (21:43)
--- NOTE | 2018-11-09 21:54 | HISTORY AND PHYSICAL ---
CHIEF COMPLAINT: A 54-year-old white female recently discharged, in fact 4 hours ago, this morning, the patient is adamant to go home. She was walking around by the time I got here, and chest x-ray slightly improving. Physical exam also better. Pulse oximetry 94%, decreased crackles and wheezing. She has known history of extrinsic allergic alveolitis sudden onset with mold. Lately she is undergoing a lot of stress. She was admitted a few weeks ago at [facility] for bipolar disorder, manic phase, and depression. She has been under the care of Dr. Tamayo. Subsequently, she had a fall sustained injury to the left 10th rib fracture. Developed hypostatic pneumonia, admitted to the hospital. She was receiving IV steroids, IV antibiotics and slowly improving. Anxious to go home. Apparently family picked her up at home around 10:00. She went to bed and she woke up around 3:00 with shortness of breath, cough, wheezing, cyanotic, pulse oximetry 53%. Family brought her to the [facility] and she has extensive squeaks, crackles. Chest x-ray worsening of infiltrates comparing it to the morning x- ray that was done at [facility], and she was placed on 2 L and transferred to [facility] again for readmission. She has this type of sudden onset of noncardiogenic edema in the past, had a lung biopsy on the right side, reported extrinsic allergic alveolitis. She was doing very well, and she was in a lot of pain. I started on broad-spectrum IV antibiotics, Lasix. Family was at bedside. She is also coughing. No chest pain. EKG sinus, nothing acute. ProBNP was high. D-dimer slightly high 0.82. There was no swelling of feet, and she was seen before by Dr. Vargas. He feels that the patient has some aspiration in the past. Nevertheless, the symptoms are very acute just like before several years ago. The patient was examined by myself again in the evening, and she has extensive squeaks and crackles. She was very anxious with steroids that might increase her bipolar disorder. She was given some Ativan to come down. I will also consult Dr. Vargas. Since proBNP was high, I am also getting echocardiography to see the LV function. PAST MEDICAL HISTORY: Abnormal EKG in the past. Cardiac catheterization was negative. Chronic tobacco abuse, bipolar disorder, chronic anxiety, acid reflux disease, chronic nicotine dependency, perimenopausal syndrome, B12 deficiency. PAST SURGICAL HISTORY: Bilateral reduction mammoplasty, cholecystectomy, hysterectomy, left brachial cyst repair, left hip replacement. MEDICATIONS: Cymbalta 30 mg daily, Depakote 500 p.o. b.i.d., Risperdal 2 mg p.o. b.i.d., B12 tablets daily, Nexium 20 mg daily, Levaquin, Breo. SOCIAL HISTORY: , 3 children, self-employed, off and on smoking. No drugs. No alcohol abuse. FAMILY HISTORY: Father is alive with diabetes and dementia. Mom of bypass complication at the age of 61. MAINTENANCE: The patient was given pneumococcal 13 vaccine this morning. REVIEW OF SYSTEMS: HEENT: No headache. No vision problem. No earache. No sore throat. Neck: No goiter. No lymphadenopathy. No bruit. Cardiopulmonary: Basically shortness of breath, cough, wheezing. No chest pain. No swelling of feet. Weight gain 5 pounds. GI: No nausea, vomiting, abdominal pain. : No history of hesitancy, frequency, dysuria. Neurologic Exam: No focal symptoms or weakness. PHYSICAL EXAMINATION: VITAL SIGNS: Temperature 98 degrees, pulse 83, blood pressure 133/73, and nasal cannula 94%, height 5 feet 3 inches, 161 pounds. HEENT EXAM: Atraumatic, normocephalic. Pupils equal, react to light. TMs are normal. Nose and throat within normal limits. NECK: Supple. No lymphadenopathy. No goiter. CHEST: Bilateral air entry with squeaks. CARDIOVASCULAR: Distant heart sounds. ABDOMEN: Belly is soft, nontender. Good bowel sounds. No masses palpable. EXTREMITIES: No peripheral edema, cyanosis. NEUROLOGICAL: No obvious neurological deficits. INVESTIGATIONS: White cell count 19, hematocrit 32, platelets 572,000. Sedimentation rate is 42. D-dimer 0.8. SMA 7 is normal. ProBNP was 5. Urine toxicology screen is negative. Chest x-ray in Med/Surg is worsening of bilateral infiltrates. EKG: Normal sinus, nothing acute. ASSESSMENT AND PLAN: 1. A 52-year-old white female readmitted to the hospital with acute respiratory failure, hypoxic due to bilateral infiltrates, most likely noncardiogenic edema. Clinically, I did not find any signs of heart failure, no JVD elevation, no edema. Anyhow, we will get an echocardiography. EKG was normal. We will repeat the labs in the morning, which includes CBC daily, SMA 7, ProBNP, cardiac enzymes. 2. Extrinsic allergic alveolitis, sudden onset, allergic to mold. Plan is IV steroids, broad- spectrum antibiotics with aztreonam and Levaquin. Patient is allergic to Rocephin per my office. 3. Deep vein thrombosis and gastrointestinal prophylaxis with Lovenox and Protonix. 4. Reconcile home medicines for bipolar disorder and will be closely monitoring and if no improvement, we will consider Dr. Vargas consulting. cc: Mauricio Driver MD
[2018-11-10] MEDS: SOLU-MEDROL IV SCH ×3 (02:23→18:43)
[2018-11-10] MEDS: AZACTAM 1 GM in NS 50 ML IV SCH ×3 (02:23→17:12)
[2018-11-10 05:04] LABS: ALLEN TEST YES; BE 6.2 mmoll (-3.0-3.0); BLOOD TYPE ARTERIAL; HCO3-(ACT) 29.6 mmoll (20.0-26.0); METHB 1.5 % (0.0-1.5); O2(CT) 14.9 mL/dL (15.0-23.0); O2HB 90.3 % (95.0-99.0); PCO2(98.6) 46 mmHg (35-45); PO2(98.6) 56 mmHg (60-100); SAMPLE BLOOD; SAO2 93.7 % (95.0-100.0); THB 11.7 g/dL (11.5-17.4); pH(98.6) 7.44 (7.35-7.45)
[2018-11-10 05:05] LABS: MODALITY CANNULA
[2018-11-10 06:41] LABS: BASO# 0.01 X1000 (0.0-0.2); BASO% 0.1 % (0.0-0.8); EOS# 0.01 X1000 (0.0-0.7); EOS% 0.1 % (0.0-10.0); HEMATOCRIT 33.7 % (37.0-47.0); IMM GRAN# 0.15 X1000 (0.0-0.04); IMM GRAN% 1.1 % (0.0-0.5); LYMPH# 1.25 X1000 (1.2-3.4); LYMPH% 9.1 % (20.5-51.1); MCH 30.3 PG (27-31); MCHC 32.6 g/dL (33-37); MCV 92.8 FL (81-99); MONO# 0.78 X1000 (0.11-0.59); MONO% 5.7 % (1.7-9.3); NEUT# 11.59 X1000 (1.4-6.5); NEUT% 83.9 % (42.2-75.2); PLT 596 X1000 (130-400); RBC 3.63 XMIL (4.2-5.4); RDW 13.5 % (11.5-14.5); WBC 13.79 X1000 (4.8-10.8)
[2018-11-10 07:10] LABS: INR 1.05; PROTIME 13.8 Seconds (11.0-16.0)
[2018-11-10 07:29] LABS: AGAP 5; BUN 19 mg/dL (8-22); CALCIUM 9.1 mg/dL (8.8-10.2); CHLORIDE 98 mmol/L (98-107); CK PROFILE 25 U/L (24-173); COSMO 276; CREATININE 0.8 mg/dL (0.5-0.9); ESTIMATED GFR > 60; GLUCOSE 125 mg/dL (70-104); POTASSIUM 4.5 mmol/L (3.5-5.1); SODIUM 136 mmol/L (136-145); TCO2 33 mmol/L (25-35)
[2018-11-10] MEDS: BREO ELLIPTA 100/25 MCG INH INH SCH (07:55)
[2018-11-10] MEDS: DEPAKOTE ER PO SCH ×2 (08:30→21:15)
[2018-11-10] MEDS: VITAMIN B-12 PO SCH (08:30)
[2018-11-10] MEDS: RISPERDAL PO SCH ×2 (08:30→21:15)
[2018-11-10] MEDS: CYMBALTA PO SCH (08:30)
[2018-11-10] MEDS: ATIVAN IV PRN ×3 (08:31→21:15)
--- NOTE | 2018-11-10 08:43 | Diag Imaging Result Doc PS360 ---
CHEST-PORTABLE - 11/10/2018 INDICATION: dyspnea COMPARISON: 11/09/2018 FINDINGS: Lung volumes are lower. There is worsening in the diffuse bilateral hazy interstitial infiltrates. Heart size remains top normal. No large pleural effusion. IMPRESSION: Lower lung volumes. Worsening in the diffuse bilateral nonspecific infiltrates. Pulmonary edema is suspected. Electronically signed by Shan Tong 11/10/2018 8:41 AM
[2018-11-10] MEDS: TORADOL IV PRN ×3 (08:44→21:16)
[2018-11-10] MEDS: ROBITUSSIN-DM PO PRN ×3 (08:44→21:16)
--- NOTE | 2018-11-10 09:14 | EKG Report ---
Test Performed on : 11/10/2018 06:52:44 AM Test Reason : cp Blood Pressure : / mmHG Vent. Rate : 068 BPM Atrial Rate : 068 BPM P-R Int : 170 ms QRS Dur : 082 ms QT Int : 392 ms P-R-T Axes : 026 034 038 degrees QTc Int : 416 ms Normal sinus rhythm. Normal ECG When compared with ECG of 09-NOV-2018 18:07, (Unconfirmed) No significant change was found Confirmed by Suraj Demarco MD ([id number]) on 11/12/2018 8:33:40 AM
--- NOTE | 2018-11-10 13:57 | PROGRESS NOTE ---
DATE: 11/10/2018 VITAL SIGNS: Temperature 98.6 degrees, heart rate 70, respirations 18, blood pressure 120/58, O2 saturation on 3 L nasal oxygen 96%. LABORATORY: Hemoglobin 11.0, hematocrit 33.7, white blood count 03713, down from 19,000, sodium 136, potassium 4.5, BUN 19, creatinine 0.8, glucose 125. ProBNP 2158, down from 5215. TSH normal at 1.2. The patient was admitted with pneumonia, plus or minus pulmonary edema. Echocardiogram was ordered. Echocardiogram is not complete, but in process. Mitral regurgitation was noted. Due to this and increase in proBNP, Lasix, potassium, and losartan are added. Clinically she is improved, but still needs O2 to maintain a sat of 96%. She did not use O2 at home. PLAN: Continue antibiotics which include Levaquin and Azactam. Cultures were not done. The patient is also on steroids. cc: MD Mauricio Graham MD
[2018-11-10] MEDS: LEVAQUIN 500 MG/D5W 500 MG/100 ML IVPB IV SCH (17:11)
[2018-11-10] MEDS: LOVENOX SUBQ SCH (17:11)
[2018-11-10] MEDS: PROTONIX IV SCH (17:11)
[2018-11-11] MEDS: AZACTAM 1 GM in NS 50 ML IV SCH ×3 (01:24→17:08)
[2018-11-11] MEDS: SOLU-MEDROL IV SCH ×3 (01:25→17:08)
[2018-11-11] MEDS: ATIVAN IV PRN ×4 (01:25→17:08)
[2018-11-11 06:13] LABS: BASO# 0.01 X1000 (0.0-0.2); BASO% 0.1 % (0.0-0.8); EOS# 0.01 X1000 (0.0-0.7); EOS% 0.1 % (0.0-10.0); HEMATOCRIT 32.2 % (37.0-47.0); HEMOGLOBIN 10.8 g/dL (12.0-16.0); IMM GRAN# 0.27 X1000 (0.0-0.04); IMM GRAN% 1.4 % (0.0-0.5); LYMPH# 2.21 X1000 (1.2-3.4); LYMPH% 11.2 % (20.5-51.1); MCH 30.3 PG (27-31); MCHC 33.5 g/dL (33-37); MCV 90.2 FL (81-99); MONO# 1.52 X1000 (0.11-0.59); MONO% 7.7 % (1.7-9.3); MPV 8.8 FL (7.4-10.4); NEUT# 15.77 X1000 (1.4-6.5); NEUT% 79.5 % (42.2-75.2); PLT 539 X1000 (130-400); RBC 3.57 XMIL (4.2-5.4); RDW 12.8 % (11.5-14.5); WBC 19.79 X1000 (4.8-10.8)
[2018-11-11 06:48] LABS: AGAP 11; BUN 20 mg/dL (8-22); CALCIUM 8.4 mg/dL (8.8-10.2); CHLORIDE 91 mmol/L (98-107); COSMO 263; CREATININE 0.7 mg/dL (0.5-0.9); ESTIMATED GFR > 60; GLUCOSE 120 mg/dL (70-104); POTASSIUM 4.5 mmol/L (3.5-5.1); SODIUM 129 mmol/L (136-145); TCO2 27 mmol/L (25-35)
[2018-11-11] MEDS: ROBITUSSIN-DM PO PRN ×4 (06:49→22:18)
[2018-11-11] MEDS: TORADOL IV PRN ×2 (06:50→12:54)
[2018-11-11] MEDS: BREO ELLIPTA 100/25 MCG INH INH SCH (07:48)
[2018-11-11] MEDS: DEPAKOTE ER PO SCH ×3 (10:35→20:22)
[2018-11-11] MEDS: VITAMIN B-12 PO SCH (10:35)
[2018-11-11] MEDS: CYMBALTA PO SCH (10:36)
[2018-11-11] MEDS: COZAAR PO SCH (10:36)
[2018-11-11] MEDS: RISPERDAL PO SCH ×3 (10:36→20:22)
[2018-11-11] MEDS: LASIX IV SCH (10:36)
[2018-11-11] MEDS: KLOR-CON PO SCH (10:36)
--- NOTE | 2018-11-11 12:09 | PROGRESS NOTE ---
DATE: 11/11/2018 VITAL SIGNS: Temperature 98.0 degrees, heart rate 81, respirations 16, blood pressure 139/74, O2 saturation 92% on room air. Patient was using oxygen, however, when I was in the room. Chest sounds fairly clear. She states she is feeling better and breathing better. She was given some Lasix yesterday, and daily. White blood count was still elevated at 19,800. This may be related to steroids. Solu-Medrol will be discontinued and she will be placed on p.o. prednisone. Hopefully, she can go home early in the week. cc: MD Mauricio Graham MD
--- NOTE | 2018-11-11 15:58 | Diag Imaging Result Doc PS360 ---
EXAM: CHEST-2 VIEWS - 11/11/2018 HISTORY: hypoxia TECHNIQUE: Chest two views COMPARISON: 11/10/2018 portable chest FINDINGS: Inspiration is mildly shallow. There is been interval decrease in bilateral infiltrates or edema. There are some residual prominence of interstitial markings, although some of this may be chronic. There is no pleural effusion or pneumothorax identified. Heart size is normal. IMPRESSION: Mildly shallow inspiration. Decrease in bilateral infiltrates or edema. Electronically signed by Deni Grant 11/11/2018 3:55 PM
--- NOTE | 2018-11-11 16:00 | ECHO REPORT ---
ORDER DATE: 11/09/2018 ECHOCARDIOGRAPHIC MEASUREMENTS: 1. Interventricular septum 0.8. 2. Left ventricular posterior wall 0.7. 3. Diastolic diameter 4.9. 4. Left atrium 4.1. 5. Aorta 3.1. SUMMARY: 1. Normal left ventricular cavity size. 2. Estimated ejection fraction of 65%. 3. There is diastolic dysfunction grade 1. 4. Mitral valve leaflets are mildly thickened. 5. Aortic valve leaflets were trileaflet. 6. Pulmonic valve was normal. 7. Tricuspid valve was normal. 8. There is left atrial enlargement. 9. There is moderate to severe mitral regurgitation. 10. Peak velocity across the aortic valve less than 2 m/sec. 11. There is no aortic stenosis or regurgitation. 12. There is mild tricuspid regurgitation. 13. There is mild pulmonary regurgitation. 14. Peak velocity across the tricuspid valve was 3 m/sec. 15. Pulmonary artery systolic pressure of 50 mmHg. 16. There is no pericardial effusion or obvious intracardiac mass or thrombus seen. 17. Anterior echo-free space suggestive of pericardial fat pad noted. cc: MD Mauricio Perrin MD
[2018-11-11] MEDS: PROTONIX IV SCH (17:08)
[2018-11-11] MEDS: LOVENOX SUBQ SCH (17:08)
[2018-11-11] MEDS: LEVAQUIN 500 MG/D5W 500 MG/100 ML IVPB IV SCH (17:08)
[2018-11-11] MEDS: MOTRIN PO PRN (22:18)
[2018-11-11] MEDS: ATIVAN PO PRN (22:18)
[2018-11-12] MEDS: SOLU-MEDROL IV SCH ×5 (01:21→20:58)
[2018-11-12] MEDS: ATIVAN PO PRN ×4 (03:38→21:00)
[2018-11-12] MEDS: ROBITUSSIN-DM PO PRN ×3 (03:38→16:03)
[2018-11-12] MEDS: MOTRIN PO PRN ×4 (03:38→22:36)
[2018-11-12 06:48] LABS: BASO# 0.03 X1000 (0.0-0.2); BASO% 0.1 % (0.0-0.8); EOS# 0.01 X1000 (0.0-0.7); HEMATOCRIT 33.8 % (37.0-47.0); HEMOGLOBIN 11.4 g/dL (12.0-16.0); IMM GRAN# 0.47 X1000 (0.0-0.04); IMM GRAN% 1.8 % (0.0-0.5); LYMPH# 3.74 X1000 (1.2-3.4); LYMPH% 14.4 % (20.5-51.1); MCH 30.2 PG (27-31); MCHC 33.7 g/dL (33-37); MCV 89.4 FL (81-99); MONO# 2.49 X1000 (0.11-0.59); MONO% 9.6 % (1.7-9.3); NEUT# 19.16 X1000 (1.4-6.5); NEUT% 74.1 % (42.2-75.2); PLT 505 X1000 (130-400); RBC 3.78 XMIL (4.2-5.4); RDW 12.8 % (11.5-14.5)
[2018-11-12 06:55] LABS: AGAP 9; BUN 23 mg/dL (8-22); CALCIUM 8.6 mg/dL (8.8-10.2); CHLORIDE 90 mmol/L (98-107); COSMO 263; CREATININE 0.6 mg/dL (0.5-0.9); ESTIMATED GFR > 60; GLUCOSE 109 mg/dL (70-104); SODIUM 129 mmol/L (136-145); TCO2 30 mmol/L (25-35)
--- NOTE | 2018-11-12 07:27 | EKG Report ---
Test Performed on : 11/12/2018 07:17:30 AM Test Reason : cp Blood Pressure : / mmHG Vent. Rate : 065 BPM Atrial Rate : 065 BPM P-R Int : 172 ms QRS Dur : 086 ms QT Int : 402 ms P-R-T Axes : 022 037 049 degrees QTc Int : 418 ms Normal sinus rhythm. Normal ECG When compared with ECG of 10-NOV-2018 06:52, (Unconfirmed) No significant change was found Confirmed by Suraj Demarco MD ([id number]) on 11/13/2018 8:30:08 AM
[2018-11-12] MEDS: BREO ELLIPTA 100/25 MCG INH INH SCH (08:21)
--- NOTE | 2018-11-12 10:03 | Diag Imaging Result Doc PS360 ---
EXAM: CHEST-2 VIEWS HISTORY: hypoxia TECHNIQUE: Chest two views COMPARISON: 11/11/2018 FINDINGS: Poor inspiratory effort. No cardiomegaly. No pleural effusions. Mild increased interstitial markings. These are slightly less pronounced. There are sutures in the mid and lower right lung. IMPRESSION: Mild interval improvement. Electronically signed by Celio Garcia 11/12/2018 9:02 AM
[2018-11-12] MEDS: COZAAR PO SCH (10:33)
[2018-11-12] MEDS: RISPERDAL PO SCH ×2 (10:33→21:00)
[2018-11-12] MEDS: CYMBALTA PO SCH (10:33)
[2018-11-12] MEDS: DEPAKOTE ER PO SCH ×2 (10:33→21:00)
[2018-11-12] MEDS: VITAMIN B-12 PO SCH (10:33)
[2018-11-12] MEDS: KLOR-CON PO SCH (10:34)
[2018-11-12] MEDS: LEVAQUIN PO SCH (10:34)
[2018-11-12] MEDS: LASIX IV SCH (10:34)
[2018-11-12] MEDS ORDERED: NS 250 ML ONE (12:18)
[2018-11-12] MEDS: PROTONIX IV SCH (16:03)
[2018-11-12] MEDS: SODIUM CHLORIDE 0.9% INJ SCH (16:03)
[2018-11-12] MEDS: LOVENOX SUBQ SCH (16:03)
--- NOTE | 2018-11-12 18:58 | PROGRESS NOTE ---
DATE: 11/12/2018 SUBJECTIVE: Interval history was reviewed over the weekend. Lasix was given; excellent diuresis. EKG initially sinus tach. Followup EKG showed T-wave inversion in V1 and V2. Echocardiography: Normal LV function. ProBNP is decreasing. Chest x-ray is slowly improving. Continues to have shortness of breath, little bit of cough and wheezing. Weaning off oxygen. No swelling of feet. Anxious to go home. OBJECTIVE: General: Temperature is 98 degrees, pulse 126/69, room air is 94%. HEENT: Within normal limits. JVD is not elevated. Chest: Bilateral squeaks. Heart: Distant heart sounds. Abdomen: Belly is soft, nontender. Extremities: No peripheral edema. LABS: White cell count 25, hematocrit 33, platelets 505,000. Sodium 129, potassium 5, chloride 90, BUN 23, creatinine 0.6, glucose 8.6. Urine tox was negative. IgG is normal. Chest x-ray is better. ASSESSMENT AND PLAN: 1. Acute respiratory failure due to bilateral infiltrates, most likely noncardiogenic edema due to allergic to the mold. Plan is decrease intravenous steroids, Lasix as needed, and slowly wean off oxygen. 2. Elevated white cell count. Continue intravenous antibiotics with Levaquin. 3. Noncardiogenic edema, elevated proBNP. Lasix 20 daily along with echocardiography findings and noted electrocardiogram changes. Followup on cardiac enzymes was negative. 4. Bipolar disorder. Continue present medicine. 5. Poor intravenous access. Will get a peripherally inserted central catheter line. 6. Discussed the plan of care with the family. LEVEL OF DOCUMENTATION: 25 minutes. cc: Mauricio Driver MD
[2018-11-13] MEDS: SOLU-MEDROL IV SCH ×3 (04:16→20:16)
[2018-11-13] MEDS: ATIVAN PO PRN ×3 (04:46→20:16)
[2018-11-13] MEDS: MOTRIN PO PRN ×2 (04:46→11:21)
[2018-11-13] MEDS: ROBITUSSIN-DM PO PRN (04:47)
[2018-11-13 06:37] LABS: BASO# 0.01 X1000 (0.0-0.2); BASO% 0.1 % (0.0-0.8); HEMOGLOBIN 12.2 g/dL (12.0-16.0); IMM GRAN# 0.29 X1000 (0.0-0.04); IMM GRAN% 1.5 % (0.0-0.5); LYMPH# 1.72 X1000 (1.2-3.4); LYMPH% 8.9 % (20.5-51.1); MCH 29.7 PG (27-31); MONO# 0.82 X1000 (0.11-0.59); MONO% 4.3 % (1.7-9.3); MPV 8.7 FL (7.4-10.4); NEUT# 16.44 X1000 (1.4-6.5); NEUT% 85.2 % (42.2-75.2); PLT 584 X1000 (130-400); RBC 4.11 XMIL (4.2-5.4); RDW 13.1 % (11.5-14.5); WBC 19.28 X1000 (4.8-10.8)
[2018-11-13 06:58] LABS: AGAP 15; BUN 23 mg/dL (8-22); CHLORIDE 88 mmol/L (98-107); COSMO 265; CREATININE 0.7 mg/dL (0.5-0.9); ESTIMATED GFR > 60; GLUCOSE 172 mg/dL (70-104); POTASSIUM 4.8 mmol/L (3.5-5.1); SODIUM 128 mmol/L (136-145); TCO2 25 mmol/L (25-35)
[2018-11-13 07:02] LABS: LYMPHS 12 % (21-51); MONO 2 % (1-9); SEGS 82 % (42-75)
--- NOTE | 2018-11-13 09:20 | Diag Imaging Result Doc PS360 ---
EXAM: CHEST-2 VIEWS 11/13/2018 HISTORY: hypoxia TECHNIQUE: PA and lateral chest COMMENT: There is a PICC line on the left with its tip in the right atrium. The appearance of the chest has not changed significantly otherwise since the previous study of 11/12/2018. IMPRESSION: Stable chest. Electronically signed by Christopher Perez 11/13/2018 9:18 AM
[2018-11-13] MEDS: BREO ELLIPTA 100/25 MCG INH INH SCH (10:00)
[2018-11-13] MEDS: LASIX IV SCH (10:04)
[2018-11-13] MEDS: CYMBALTA PO SCH (10:04)
[2018-11-13] MEDS: COZAAR PO SCH (10:04)
[2018-11-13] MEDS: RISPERDAL PO SCH ×2 (10:05→20:16)
[2018-11-13] MEDS: DEPAKOTE ER PO SCH ×2 (10:05→20:16)
[2018-11-13] MEDS: KLOR-CON PO SCH (10:05)
[2018-11-13] MEDS: LEVAQUIN PO SCH (10:05)
[2018-11-13] MEDS: VITAMIN B-12 PO SCH (10:05)
[2018-11-13] MEDS: PROTONIX IV SCH (15:39)
[2018-11-13] MEDS: SODIUM CHLORIDE 0.9% INJ SCH (15:39)
[2018-11-13] MEDS: LOVENOX SUBQ SCH (15:39)
--- NOTE | 2018-11-13 16:43 | EKG Report ---
Test Performed on : 11/13/2018 4:36:20 PM Test Reason : multiple pvc's Blood Pressure : / mmHG Vent. Rate : 084 BPM Atrial Rate : 084 BPM P-R Int : 164 ms QRS Dur : 082 ms QT Int : 348 ms P-R-T Axes : 030 047 054 degrees QTc Int : 411 ms Normal sinus rhythm. Normal ECG When compared with ECG of 12-NOV-2018 07:17, No significant change was found Confirmed by Suraj Demarco MD ([id number]) on 11/14/2018 12:02:24 PM
[2018-11-13] MEDS ORDERED: TORADOL IV PRN (22:15)
--- NOTE | 2018-11-13 22:40 | PROGRESS NOTE ---
DATE: 11/13/2018 SUBJECTIVE: The patient is anxious to go home. PICC line was placed. The patient is still off oxygen. Eating well. Patient wants to go home with home IV antibiotics. Family decided to keep her until she gets stable. EXAM: Vital signs: Temperature is 98. Tachycardic. Vitals are stable. HEENT: Within normal limits. Neck: Supple. No lymphadenopathy. Chest: Some wheezing and squeaks noted. Heart: Sounds are tachycardic. Abdomen: Belly is soft, nontender. LABS: CBC: White cell count 19, hematocrit 37, platelets 584,000. Sodium 128, potassium 4.8, BUN 23, creatinine 0.7. ASSESSMENT AND PLAN: 1. Status post PICC line on the left side. 2. Continue on IV steroids. The patient was started on Levaquin 5 mg p.o. daily. 3. Bipolar disorder, stable. Since the patient gets IV, we will restart antibiotics since elevated white cell count, hyponatremia until the white cell count is stable. Family wants to keep her here for a while. 4. Telemetry monitoring for premature ventricular contractions. Followup EKG is unremarkable and slowly advance the diet. LEVEL OF DOCUMENTATION: 25 minutes. cc: Mauricio Driver MD
[2018-11-14] MEDS: NS 1,000 ML IV SCH ×2 (00:22→11:29)
[2018-11-14] MEDS: AZACTAM 1 GM in NS 50 ML IV SCH ×4 (00:22→22:10)
[2018-11-14] MEDS: ATIVAN PO PRN ×4 (01:27→22:06)
[2018-11-14] MEDS: SOLU-MEDROL IV SCH ×3 (03:24→20:31)
[2018-11-14 06:45] LABS: BASO# 0.03 X1000 (0.0-0.2); BASO% 0.1 % (0.0-0.8); EOS# 0.01 X1000 (0.0-0.7); HEMATOCRIT 38.7 % (37.0-47.0); HEMOGLOBIN 12.9 g/dL (12.0-16.0); IMM GRAN# 0.38 X1000 (0.0-0.04); IMM GRAN% 1.6 % (0.0-0.5); LYMPH# 3.31 X1000 (1.2-3.4); LYMPH% 13.5 % (20.5-51.1); MCH 29.9 PG (27-31); MCHC 33.3 g/dL (33-37); MCV 89.8 FL (81-99); MONO# 1.82 X1000 (0.11-0.59); MONO% 7.4 % (1.7-9.3); MPV 8.6 FL (7.4-10.4); NEUT# 18.93 X1000 (1.4-6.5); NEUT% 77.4 % (42.2-75.2); PLT 546 X1000 (130-400); RBC 4.31 XMIL (4.2-5.4); RDW 13.2 % (11.5-14.5); WBC 24.48 X1000 (4.8-10.8)
[2018-11-14 07:38] LABS: AGAP 16; BUN 24 mg/dL (8-22); CALCIUM 9.6 mg/dL (8.8-10.2); CHLORIDE 89 mmol/L (98-107); COSMO 262; CREATININE 0.7 mg/dL (0.5-0.9); ESTIMATED GFR > 60; GLUCOSE 112 mg/dL (70-104); POTASSIUM 5.7 mmol/L (3.5-5.1); SODIUM 128 mmol/L (136-145); TCO2 23 mmol/L (25-35)
[2018-11-14] MEDS: BREO ELLIPTA 100/25 MCG INH INH SCH (08:09)
[2018-11-14] MEDS: RISPERDAL PO SCH ×2 (09:12→20:31)
[2018-11-14] MEDS: DEPAKOTE ER PO SCH ×2 (09:12→20:31)
[2018-11-14] MEDS: KLOR-CON PO SCH (09:12)
[2018-11-14] MEDS: LEVAQUIN PO SCH (09:12)
[2018-11-14] MEDS: CYMBALTA PO SCH (09:12)
[2018-11-14] MEDS: VITAMIN B-12 PO SCH (09:14)
[2018-11-14] MEDS: PROTONIX IV SCH (16:36)
[2018-11-14] MEDS: LOVENOX SUBQ SCH (16:36)
[2018-11-14] MEDS: SODIUM CHLORIDE 0.9% INJ SCH (16:40)
--- NOTE | 2018-11-14 21:15 | PROGRESS NOTE ---
DATE: 11/14/2018 SUBJECTIVE: The patient is anxious to go home. Because of the lack of IV access she could not get good antibiotics. OBJECTIVE: She is back on oxygen and tachycardic. Vital signs are stable. HEENT exam within normal limits. Chest has bilateral squeaks. Heart sounds are regular. Belly is soft, nontender. Good bowel sounds. No neurological deficits. LABORATORY DATA: White cell count 24.48, hematocrit 38, platelets 546,000. Sodium 128, potassium 5.7, chloride 24, creatinine 0.7. ASSESSMENT AND PLAN: 1. Hyponatremia, dehydration. Intravenous fluids. 2. Slowly advance the diet. 3. Bilateral infiltrates with noncardiogenic edema. Basically, continue on intravenous steroids, intravenous aztreonam and Levaquin. 4. Bipolar disorder, stable. 5. Multifocal premature ventricular contractions. Elevated proBNP, better. Electrocardiogram stable. Echocardiography is normal. If things will get better, she also needs a stress test. The patient is anxious to go home. I will continue the treatment until the white cell count is back to normal. Continue intravenous antibiotics and follow up. Level of documentation 25 minutes. cc: Mauricio Driver MD
[2018-11-15] MEDS: NS 1,000 ML IV SCH ×2 (01:55→16:26)
[2018-11-15] MEDS: SOLU-MEDROL IV SCH ×3 (04:20→19:03)
[2018-11-15] MEDS: AZACTAM 1 GM in NS 50 ML IV SCH ×3 (06:21→21:37)
[2018-11-15] MEDS: ATIVAN PO PRN ×4 (06:46→20:34)
[2018-11-15 07:15] LABS: BASO# 0.04 X1000 (0.0-0.2); BASO% 0.2 % (0.0-0.8); EOS# 0.05 X1000 (0.0-0.7); EOS% 0.3 % (0.0-10.0); HEMOGLOBIN 12.3 g/dL (12.0-16.0); IMM GRAN# 0.31 X1000 (0.0-0.04); IMM GRAN% 1.6 % (0.0-0.5); LYMPH# 1.55 X1000 (1.2-3.4); LYMPH% 7.9 % (20.5-51.1); MCHC 32.4 g/dL (33-37); MCV 92.7 FL (81-99); MONO# 0.65 X1000 (0.11-0.59); MONO% 3.3 % (1.7-9.3); MPV 9.1 FL (7.4-10.4); NEUT# 17.11 X1000 (1.4-6.5); NEUT% 86.7 % (42.2-75.2); PLT 414 X1000 (130-400); RDW 13.4 % (11.5-14.5); WBC 19.71 X1000 (4.8-10.8)
[2018-11-15 07:27] LABS: LYMPHS 6 % (21-51); SEGS 92 % (42-75)
[2018-11-15 07:32] LABS: AGAP 18; BUN 24 mg/dL (8-22); CHLORIDE 91 mmol/L (98-107); COSMO 271; CREATININE 0.8 mg/dL (0.5-0.9); ESTIMATED GFR > 60; GLUCOSE 201 mg/dL (70-104); POTASSIUM 4.8 mmol/L (3.5-5.1); SODIUM 130 mmol/L (136-145); TCO2 21 mmol/L (25-35)
[2018-11-15] MEDS: BREO ELLIPTA 100/25 MCG INH INH SCH (07:33)
[2018-11-15] MEDS: RISPERDAL PO SCH ×2 (09:06→20:34)
[2018-11-15] MEDS: VITAMIN B-12 PO SCH (09:06)
[2018-11-15] MEDS: LEVAQUIN PO SCH (09:07)
[2018-11-15] MEDS: KLOR-CON PO SCH (09:07)
[2018-11-15] MEDS: CYMBALTA PO SCH (09:07)
[2018-11-15] MEDS: DEPAKOTE ER PO SCH ×2 (09:07→20:35)
[2018-11-15] MEDS: PROTONIX IV SCH (16:26)
[2018-11-15] MEDS: SODIUM CHLORIDE 0.9% INJ SCH (16:26)
[2018-11-15] MEDS: LOVENOX SUBQ SCH (16:26)
--- NOTE | 2018-11-15 21:02 | PROGRESS NOTE ---
DATE: 11/15/2018 SUBJECTIVE: The patient is a little better, still no trouble of swallowing, some shortness of breath. OBJECTIVE: Vital signs: Temperature is 97 degrees. Vitals are stable. HEENT exam: Within normal limits. Chest: Decreased crackles. Cardiovascular: Heart sounds are regular. Abdomen: Belly is soft, nontender. No neurological deficits. INVESTIGATIONS: CBC: White cell count 9.7, hematocrit 38, platelets 414,000. Sodium 138, potassium 4.8. PLAN: Continue present treatment. DVT/GI prophylaxis. We will decrease the IV steroids, and we will check the labs in the morning, and chest x-ray and a blood gas on room air. LEVEL OF DOCUMENTATION: 25 minutes. cc: Mauricio Driver MD
[2018-11-16] MEDS: ATIVAN PO PRN ×5 (01:14→19:39)
[2018-11-16 04:51] LABS: ALLEN TEST YES; BLOOD TYPE ARTERIAL; HCO3-(ACT) 29.6 mmoll (20.0-26.0); MODALITY CANNULA; O2(CT) 14.9 mL/dL (15.0-23.0); O2HB 94.7 % (95.0-99.0); PCO2(98.6) 50 mmHg (35-45); PO2(98.6) 90 mmHg (60-100); SAMPLE BLOOD; THB 11.1 g/dL (11.5-17.4); pH(98.6) 7.41 (7.35-7.45)
[2018-11-16] MEDS: AZACTAM 1 GM in NS 50 ML IV SCH ×4 (05:36→22:05)
[2018-11-16] MEDS: BREO ELLIPTA 100/25 MCG INH INH SCH (07:55)
--- NOTE | 2018-11-16 09:27 | Diag Imaging Result Doc PS360 ---
CHEST-2 VIEWS - 11/16/2018 INDICATION: chf/sob COMPARISON: 11/13/2018 FINDINGS: Stable left PICC line in good position with the catheter tip at the cavoatrial junction. Stable surgical resection lines in the right lung. Stable low lung volumes. Stable increased markings in the lung bases, nonspecific, suggesting mild edema or bronchitis. No pneumothorax or pleural effusion. Heart size is normal. IMPRESSION: Nonspecific findings. No change from prior. Electronically signed by Shan Tong 11/16/2018 9:24 AM
[2018-11-16 10:00] LABS: BASO# 0.03 X1000 (0.0-0.2); BASO% 0.1 % (0.0-0.8); EOS# 0.33 X1000 (0.0-0.7); EOS% 1.6 % (0.0-10.0); IMM GRAN# 0.35 X1000 (0.0-0.04); IMM GRAN% 1.7 % (0.0-0.5); LYMPH# 6.08 X1000 (1.2-3.4); LYMPH% 30.1 % (20.5-51.1); MCH 29.8 PG (27-31); MCHC 32.4 g/dL (33-37); MCV 92.1 FL (81-99); MONO# 2.13 X1000 (0.11-0.59); MONO% 10.5 % (1.7-9.3); MPV 8.7 FL (7.4-10.4); NEUT# 11.27 X1000 (1.4-6.5); PLT 400 X1000 (130-400); RBC 3.69 XMIL (4.2-5.4); RDW 13.5 % (11.5-14.5); WBC 20.19 X1000 (4.8-10.8)
[2018-11-16] MEDS: CYMBALTA PO SCH (10:03)
[2018-11-16] MEDS: KLOR-CON PO SCH (10:03)
[2018-11-16] MEDS: VITAMIN B-12 PO SCH (10:03)
[2018-11-16] MEDS: SOLU-MEDROL IV SCH ×2 (10:03→10:06)
[2018-11-16] MEDS: LEVAQUIN PO SCH (10:03)
[2018-11-16] MEDS: RISPERDAL PO SCH ×3 (10:04→20:05)
[2018-11-16] MEDS: DEPAKOTE ER PO SCH ×3 (10:18→20:05)
[2018-11-16 10:19] LABS: AGAP 11; BUN 23 mg/dL (8-22); CALCIUM 8.5 mg/dL (8.8-10.2); CHLORIDE 94 mmol/L (98-107); COSMO 269; CREATININE 0.9 mg/dL (0.5-0.9); ESTIMATED GFR > 60; GLUCOSE 114 mg/dL (70-104); POTASSIUM 3.8 mmol/L (3.5-5.1); SODIUM 132 mmol/L (136-145); TCO2 27 mmol/L (25-35)
[2018-11-16 10:58] LABS: LYMPHS 22 % (21-51); MONO 6 % (1-9); SEGS 72 % (42-75)
[2018-11-16] MEDS: NS 1,000 ML IV SCH ×2 (14:01→14:03)
[2018-11-16] MEDS: SODIUM CHLORIDE 0.9% INJ SCH (16:13)
[2018-11-16] MEDS: LOVENOX SUBQ SCH (16:13)
[2018-11-16] MEDS ORDERED: PROTONIX PO SCH (18:00)
[2018-11-16] MEDS ORDERED: MEDROL DOSEPAK PO SCH (18:30)
--- NOTE | 2018-11-16 19:00 | PROGRESS NOTE ---
DATE: 11/16/2018 SUBJECTIVE: She is getting better, anxious to go home; however, white cell count is going up. Afebrile. Waiting for chest x-ray. OBJECTIVE: On examination, temperature is 98 degrees. Tachycardic. Vital signs are stable. HEENT exam within normal limits. Chest is decreased with wheezing, crackles. The rest of the exam is benign. INVESTIGATIONS: CBC: White cell count 20, hematocrit 34, platelets 400,000. ABG: PH is 7.41, pCO2 is 50, PO2 is 90 on 28%. Sodium 132, potassium 3.8, BUN 23, creatinine 0.4. Chest x-ray slowly improving. ASSESSMENT AND PLAN: 1. Hyponatremia, getting better. 2. Bilateral infiltrates due to noncardiogenic edema, improving. 3. Continue intravenous antibiotics with Azactam and Levaquin. 4. Decrease intravenous steroids. 5. Bipolar disorder, stable. 6. I am going to stop the intravenous steroids and start on Medrol Dosepak. Repeat the labs in the morning. Level of documentation 25 minutes. cc: Mauricio Driver MD
[2018-11-16] MEDS: MEDROL PO SCH ×2 (19:41→20:05)
[2018-11-17] MEDS: NS 1,000 ML IV SCH (00:46)
[2018-11-17] MEDS: ATIVAN PO PRN ×3 (00:46→11:19)
[2018-11-17] MEDS: AZACTAM 1 GM in NS 50 ML IV SCH (05:26)
[2018-11-17 06:51] LABS: BASO# 0.01 X1000 (0.0-0.2); EOS# 0.02 X1000 (0.0-0.7); EOS% 0.1 % (0.0-10.0); HEMATOCRIT 31.9 % (37.0-47.0); HEMOGLOBIN 10.3 g/dL (12.0-16.0); IMM GRAN# 0.25 X1000 (0.0-0.04); IMM GRAN% 1.2 % (0.0-0.5); LYMPH# 1.93 X1000 (1.2-3.4); LYMPH% 9.3 % (20.5-51.1); MCH 29.6 PG (27-31); MCHC 32.3 g/dL (33-37); MCV 91.7 FL (81-99); MONO# 1.55 X1000 (0.11-0.59); MONO% 7.5 % (1.7-9.3); MPV 9.2 FL (7.4-10.4); NEUT% 81.9 % (42.2-75.2); PLT 384 X1000 (130-400); RBC 3.48 XMIL (4.2-5.4); RDW 13.4 % (11.5-14.5); WBC 20.66 X1000 (4.8-10.8)
[2018-11-17 07:21] LABS: AGAP 12; BUN 14 mg/dL (8-22); CALCIUM 8.2 mg/dL (8.8-10.2); CHLORIDE 91 mmol/L (98-107); COSMO 258; CREATININE 0.7 mg/dL (0.5-0.9); ESTIMATED GFR > 60; GLUCOSE 100 mg/dL (70-104); POTASSIUM 4.5 mmol/L (3.5-5.1); SODIUM 128 mmol/L (136-145); TCO2 25 mmol/L (25-35)
[2018-11-17 07:46] LABS: BANDS 2 % (0-1); LYMPHS 10 % (21-51); MONO 8 % (1-9); SEGS 78 % (42-75)
[2018-11-17] MEDS: BREO ELLIPTA 100/25 MCG INH INH SCH (07:59)
[2018-11-17] MEDS: MEDROL PO SCH (11:17)
[2018-11-17] MEDS: LEVAQUIN PO SCH (11:18)
[2018-11-17] MEDS: DEPAKOTE ER PO SCH (11:18)
[2018-11-17] MEDS: RISPERDAL PO SCH (11:18)
[2018-11-17] MEDS: VITAMIN B-12 PO SCH (11:18)
[2018-11-17] MEDS: KLOR-CON PO SCH (11:18)
[2018-11-17] MEDS: CYMBALTA PO SCH (11:19)
[2018-11-17 12:15] VITALS: BP 122/70
--- NOTE | 2018-11-19 12:57 | DISCHARGE SUMMARY ---
ADMISSION DATE: 11/09/2018 DISCHARGE DATE: 11/17/2018 DISCHARGING DIAGNOSES: 1. Acute respiratory failure due to noncardiogenic edema with superimposed pneumonitis. SECONDARY DIAGNOSES: 1. Abnormal EKG, Q in V1 and V2. 2. Elevated proBNP, nonspecific. Echocardiography: EF is more than 55%. 3. Chronic tobacco abuse. 4. Bipolar disorder. 5. Chronic anxiety. 6. Acid reflux disease. 7. Nicotine dependency. 8. Perimenopausal syndrome. 9. Vitamin B12 deficiency. 10. Allergic to mold. PROCEDURE: PICC line on the left side. BRIEF HISTORY: Please see the H and P with readmission on 11/09/2018. In brief, she is a 52-year- old white female recently discharged 4 hours ago, and readmitted with acute shortness of breath, bilateral infiltrates associated with hypoxemia, cyanosis, and elevated proBNP. HOSPITAL COURSE: The patient was given oxygen, IV steroids, IV antibiotics, bronchodilators, and IV Lasix. She had a previous cardiac workup that was negative. Follow up echocardiography with normal LV function without any valvular abnormalities. Patient was ruled out for NV. ProBNP was came down to 2000. The patient is refusing for further cardiac workup. Follow up treatment. Chest x-ray was improved except for mild atelectasis in the left base. The patient continues to have hyponatremia and elevated white cell count. The patient was sent home with IV antibiotics with Levaquin through the PICC line on the left side. Also needs p.r.n. oxygen. LABORATORY: CBC: White cell count 20, hematocrit 31.9, and platelet count 384,000. Sodium 128, potassium 4.8, chloride 91, BUN 14, and creatinine 0.7. DISCHARGE INSTRUCTIONS: 1. Pneumococcal 13 vaccine was given 11/09/2018. 2. Cymbalta 30 mg daily. 3. Depakote 500 p.o. b.i.d. 4. Risperdal 2 mg p.o. b.i.d. 5. B12 1000 mcg daily. 6. Nexium 20 mg daily. 7. Breo 1 puff b.i.d. 8. Medrol Dosepak. 9. Toradol 10 mg q.6 for pain. 10. Continue IV Levaquin as per [facility]. 11. Oxygen as needed. 12. Follow up in my office in 10 days. cc: Mauricio Driver MD [facility]
== END 2018-11-17 15:29 | disposition home health service (06) | DRG 196 ==
LOC: DIRADM 14:20 → 3N 14:39
PROVIDERS: ADMIT Internal Medicine; ATTEND Internal Medicine

== ENCOUNTER 2019-03-21 09:57 | Inpatient (IN) ==
[2019-03-21] MEDS ORDERED: DUONEB (A & A) INH ONE (10:09)
[2019-03-21] MEDS ORDERED: SOLU-MEDROL IV ONE (10:09)
[2019-03-21 10:29] LABS: BASO# 0.03 X1000 (0.0-0.2); BASO% 0.2 % (0.0-0.8); EOS# 0.02 X1000 (0.0-0.7); EOS% 0.1 % (0.0-10.0); HEMATOCRIT 31.4 % (37.0-47.0); HEMOGLOBIN 10.1 g/dL (12.0-16.0); IMM GRAN# 0.09 X1000 (0.0-0.04); IMM GRAN% 0.5 % (0.0-0.5); LYMPH# 1.96 X1000 (1.2-3.4); LYMPH% 11.1 % (20.5-51.1); MCH 30.4 PG (27-31); MCHC 32.2 g/dL (33-37); MCV 94.6 FL (81-99); MONO# 1.02 X1000 (0.11-0.59); MONO% 5.8 % (1.7-9.3); MPV 10.1 FL (7.4-10.4); NEUT# 14.55 X1000 (1.4-6.5); NEUT% 82.3 % (42.2-75.2); PLT 550 X1000 (130-400); RBC 3.32 XMIL (4.2-5.4); RDW 14.6 % (11.5-14.5); WBC 17.67 X1000 (4.8-10.8)
--- NOTE | 2019-03-21 10:29 | EKG Report ---
Test Performed on : 03/21/2019 10:08:41 AM Test Reason : sob Blood Pressure : / mmHG Vent. Rate : 129 BPM Atrial Rate : 129 BPM P-R Int : 166 ms QRS Dur : 086 ms QT Int : 296 ms P-R-T Axes : 059 035 012 degrees QTc Int : 433 ms Sinus tachycardia. Nonspecific ST and T wave abnormality Abnormal ECG When compared with ECG of 13-NOV-2018 16:36, Vent. rate has increased BY [address] now depressed in Lateral leads Nonspecific T wave abnormality now evident in Inferior leads Nonspecific T wave abnormality, worse in Anterolateral leads Unconfirmed Result
[2019-03-21] MEDS ORDERED: NS 1,000 ML IV ONE (10:33)
[2019-03-21 10:43] LABS: INR 1.11; PROTIME 14.4 Seconds (11.0-16.0)
[2019-03-21 10:44] LABS: PTT 38.1 Seconds (22.3-41.8)
--- NOTE | 2019-03-21 10:51 | Diag Imaging Result Doc PS360 ---
EXAM: CHEST-1 VIEW 03/21/2019 HISTORY: sob TECHNIQUE: AP portable upright at 1039 COMMENT: The inspiration is suboptimal. There is diffuse alveolar opacity bilaterally which was not the case on 11/16/2018. IMPRESSION: Pulmonary edema plus minus pneumonia. Electronically signed by Christopher Perez 03/21/2019 10:49 AM
--- NOTE | 2019-03-21 11:00 | PROVIDER DOCUMENTATION ---
This chart was entered by Vandana Be Scribe, acting as scribe for Perez Dan MD. HPI-Respiratory General - General Stated Complaint: SOB Time Seen by Provider: 03/21/19 10:00 Source: patient Allergies/Adverse Reactions: Patient Allergies Allergy/AdvReac Type Severity Reaction Status Date / Time Penicillins Allergy HIVES Verified 03/21/19 11:06 Home Medications: Home Medication List Medication Instructions Recorded Confirmed Last Taken Type Benztropine Mesylate 0.5 mg PO QHS 03/21/19 03/21/19 Unknown History Divalproex [Depakote] 125 mg PO BID 03/21/19 03/21/19 Unknown History Eszopiclone 1 tab PO QHS 03/21/19 03/21/19 Unknown History Risperidone 2 mg PO DAILY 03/21/19 03/21/19 Unknown History Sertraline [Zoloft] 25 mg PO DAILY 03/21/19 03/21/19 Unknown History - History of Present Illness-Resp Nature of Presenting Problem: 53 y/o female presents to ED with SOB and headaches onset last night. Pt reports she also has been having occasional episodes of chest pain for the past month. Pt states she has hx "chronic breathing problems," but doesn't know what her diagnosis is. Pt reports she fell on 03/14/[address] Chawla. Pt states her shoulder is broken and splint is in place. Pt is alert and oriented. Quality of Pain: reports: aching Severity in ED: reports: severe Onset/Duration: reports: last night, other (1 month ago) Timing: reports: still present Context: reports: other Exposure: reports: unknown cause Cough Quality/Degree: reports: no cough Episode Frequency: occasional episodes Current Respiratory Medication Therapy: Initiated see nurses note Modifying Factors: improves with: nothing Associated Symptoms: reports: chest pain/soreness, headache, shortness of breath , short of breath Similar Symptoms Previously?: No Recently seen or treated by another doctor?: Yes (Dr. Chawla after fall on 03/14/19) Review of Systems - Adult - REVIEW OF SYSTEMS - ADULT Constitutional: denies: chills, fever Eyes: reports: no symptoms reported Ears, Nose, Mouth & Throat: reports: no symptoms reported Cardiovascular: reports: chest pain. denies: palpitations Respiratory: reports: shortness of breath. denies: cough Gastrointestinal: reports: no symptoms reported Genitourinary: reports: no symptoms reported Musculoskeletal: reports: no symptoms reported Integumentary: reports: no symptoms reported Neurological: reports: headache/migraines. denies: dizziness/vertigo Psychiatric: reports: no symptoms reported Endocrine: reports: no symptoms reported Hematologic/Lymphatic: reports: no symptoms reported Allergic/Immunologic: reports: no symptoms reported All Other Systems: Reviewed and Negative Past History - Adult - PAST MEDICAL HISTORY-ADULT Review of Records: reports: Old Records Reviewed, Nursing Assessment Review, Medications Reviewed Major Childhood Illnesses: reports: denies history Cardiovascular: reports: denies history Respiratory: reports: denies history Gastrointestinal: reports: denies history Obstetrical/Gynecological: reports: denies history Genitourinary: reports: denies history Musculoskeletal: reports: chronic pain, fibromyalgia, other (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 on dangers of tobacco.: Discussed manners to quit use, and f/u contacts for add'l counseling. Substance Use: none/never Alcohol Use Frequency: never Living Situation: family Physical Exam-General - PHYSICAL EXAM-ADULT Initial Vital Signs Reviewed: Yes (48% O2 sat on room air; nasal cannula placed and sats improved to low 60s) - CONSTITUTIONAL General Appearance: appears well, alert, no apparent distress - EYES Eyes: PERRL/EOMI, pink conjunctivae - HEAD, EARS, NOSE, MOUTH & THROAT HENMT: normocephalic/atraumatic, moist mucous membranes, normal ENT inspection - NECK Neck: non-tender, full range of motion - RESPIRATORY Respiratory: chest non-tender, decreased breath sounds (on the L) - CARDIOVASCULAR Cardiovascular: normal peripheral pulses, regular rate, rhythm - GASTROINTESTINAL (ABDOMEN) Abdominal Exam: normal bowel sounds, non tender, soft - MUSCULOSKELETAL Back Exam: normal inspection, no CVA tenderness, no vertebral tenderness Extremity: non-tender, other (splint in place on LUE) - SKIN Integumentary: normal color, warm/dry, cyanosis, ecchymosis (to distal L humerus) - NEUROLOGIC Neurologic: grossly normal - PSYCHIATRIC Psych/Mental Status: normal mood/affect, normal thought content, normal thought process, oriented x 3 - HEART Score HEART Score: History: Slightly Suspicious HEART Score: ECG: Non-Specific Repolarization Disturbance/LBBB/PM HEART Score: Age: 45-65 Years HEART Score: Risk Factors for Atherosclerotic Disease: No Risk Factors Known HEART Score: Troponin: < or = Normal Limit Total HEART Score:: 2 Progress - PLAN OF CARE/RESULTS Progress/Plan/Lab Results: Vital Signs - 8 hr 03/21/19 10:00 03/21/19 10:03 03/21/19 10:13 Pulse Rate 144 H 126 H Respiratory Rate 32 H 46 H Blood Pressure 100/73 O2 Sat by Pulse Oximetry 49 L 49 L 94 L 03/21/19 10:15 03/21/19 10:30 03/21/19 10:45 Pulse Rate 126 H 126 H 126 H Respiratory Rate 33 H 42 H 29 H Blood Pressure O2 Sat by Pulse Oximetry 99 100 90 L 03/21/19 10:56 03/21/19 11:01 03/21/19 11:31 Pulse Rate 117 H 117 H 117 H Respiratory Rate 34 H 37 H 35 H Blood Pressure 127/75 130/93 O2 Sat by Pulse Oximetry 97 97 96 03/21/19 11:45 03/21/19 12:01 Pulse Rate 118 H Respiratory Rate 31 H Blood Pressure 139/78 O2 Sat by Pulse Oximetry 98 93 L Laboratory Results - last 24 hr 03/21/19 03/21/19 03/21/19 09:53 10:15 10:15 WBC 17.67 H RBC 3.32 L Hgb 10.1 L Hct 31.4 L MCV 94.6 MCH 30.4 MCHC 32.2 L RDW Std Deviation 14.6 H Plt Count 550 H MPV 10.1 Immature Gran % (Auto) 0.5 Neut % (Auto) 82.3 H Lymph % (Auto) 11.1 L [place] % (Auto) 5.8 Eos % (Auto) 0.1 Baso % (Auto) 0.2 Immature Gran # (Auto) 0.09 H Neut # (Auto) 14.55 H Lymph # (Auto) 1.96 [place] # (Auto) 1.02 H Eos # (Auto) 0.02 Baso # (Auto) 0.03 PT 14.4 INR 1.11 PTT (Actin FS) 38.1 D-Dimer, Quantitative 3.58 H Specimen Type Sample Site pH pCO2 pO2 HCO3 Base Excess Oxyhemoglobin ABG O2 Sat (Calculated) ABG O2 Saturation ABG Carboxyhemoglobin ABG Methemoglobin Jono Test A-a O2 Difference Total Hemoglobin Lactate Liter Flow Blood Gas Modality FiO2 % Sodium Potassium Chloride Carbon Dioxide Anion Gap BUN Creatinine Estimated GFR/1.73 m2 BUN/Creatinine Ratio Glucose Calculated Osmolality Calcium Total Bilirubin AST ALT Alkaline Phosphatase Creatine Kinase Cancelled Troponin T Ais-C-Knfbzszulzl Pept Total Protein Albumin Globulin Albumin/Globulin Ratio Plasma Lactate 03/21/19 03/21/19 03/21/19 10:15 10:15 10:30 WBC RBC Hgb Hct MCV MCH MCHC RDW Std Deviation Plt Count MPV Immature Gran % (Auto) Neut % (Auto) Lymph % (Auto) [place] % (Auto) Eos % (Auto) Baso % (Auto) Immature Gran # (Auto) Neut # (Auto) Lymph # (Auto) [place] # (Auto) Eos # (Auto) Baso # (Auto) PT INR PTT (Actin FS) D-Dimer, Quantitative Specimen Type Sample Site pH pCO2 pO2 HCO3 Base Excess Oxyhemoglobin ABG O2 Sat (Calculated) ABG O2 Saturation ABG Carboxyhemoglobin ABG Methemoglobin Jono Test A-a O2 Difference Total Hemoglobin Lactate Liter Flow Blood Gas Modality FiO2 % Sodium Potassium Chloride Carbon Dioxide Anion Gap BUN Creatinine Estimated GFR/1.73 m2 BUN/Creatinine Ratio Glucose Calculated Osmolality Calcium Total Bilirubin AST ALT Alkaline Phosphatase Creatine Kinase 414 H Troponin T 0.058 Ilj-M-Moavmszhdmy Pept 5402 H Total Protein Albumin Globulin Albumin/Globulin Ratio Plasma Lactate 03/21/19 03/21/19 03/21/19 10:40 10:50 11:17 WBC RBC Hgb Hct MCV MCH MCHC RDW Std Deviation Plt Count MPV Immature Gran % (Auto) Neut % (Auto) Lymph % (Auto) [place] % (Auto) Eos % (Auto) Baso % (Auto) Immature Gran # (Auto) Neut # (Auto) Lymph # (Auto) [place] # (Auto) Eos # (Auto) Baso # (Auto) PT INR PTT (Actin FS) D-Dimer, Quantitative Specimen Type ARTERIAL Sample Site R BRACHIAL pH 7.42 pCO2 33 L pO2 88 HCO3 22.8 Base Excess -2.6 Oxyhemoglobin 93.2 L ABG O2 Sat (Calculated) 13.1 L ABG O2 Saturation 98.6 ABG Carboxyhemoglobin 3.50 H ABG Methemoglobin 1.9 H Jono Test NO A-a O2 Difference 584.0 Total Hemoglobin 9.9 L Lactate 2.30 H Liter Flow 15.0 Blood Gas Modality NRB FiO2 % 100.0 Sodium 138 Potassium 3.4 L Chloride 98 Carbon Dioxide 21 L Anion Gap 19 BUN 15 Creatinine 0.8 Estimated GFR/1.73 m2 > 60 BUN/Creatinine Ratio 19 Glucose 125 H Calculated Osmolality 278 Calcium 8.4 L Total Bilirubin 0.50 AST 35 H ALT 7 L Alkaline Phosphatase 89 Creatine Kinase Troponin T Gia-Q-Iowomzehtpd Pept Total Protein 6.2 L Albumin 2.8 L Globulin 3.4 Albumin/Globulin Ratio 0.8 Plasma Lactate 3.7 H Orders Category Date Time Status Cardiac Monitoring DIRECTED Care 03/21/19 10:33 Active IV Insertion ORDERED Care 03/21/19 10:33 Active Notify MD of + Sepsis Screen NOW Care 03/21/19 10:33 Active Notify Physician As Ordered Care 03/21/19 10:33 Active CHEST-1 VIEW [RAD] Stat Exams 03/21/19 10:08 Completed CTA [CT ANGIOGRM PULMONARY ARTERIES] [CT] Stat Exams 03/21/19 10:54 Completed ABG [RESP] Routine Lab 03/21/19 11:17 Completed BLOOD CULTURE [BLDCUL] Stat Lab 03/21/19 10:15 Results CBC WITH ELECTRONIC DIFF [HEME] Stat Lab 03/21/19 10:15 Completed CK PROFILE [SP CHEM] Routine Lab 03/21/19 10:30 Results COMPREHENSIVE METABOLIC PANEL [CHEM] Stat Lab 03/21/19 10:50 Completed D-DIMER [COAG] Stat Lab 03/21/19 10:15 Completed LACTATE, PLASMA [CHEM] Lab 03/21/19 13:45 Uncollected LACTATE, PLASMA [CHEM] Lab 03/21/19 16:45 Uncollected LACTATE, PLASMA [CHEM] Q3H Lab 03/21/19 10:40 Completed PRO B-NATRIURETIC PEPTIDE Stat Lab 03/21/19 10:15 Completed PROTIME WITH INR [COAG] Stat Lab 03/21/19 10:15 Completed PTT [COAG] Stat Lab 03/21/19 10:15 Completed TROPONIN T Stat Lab 03/21/19 10:15 Completed URINALYSIS W/POSS RFLX CULT [URINALYSIS] Stat Lab 03/21/19 10:33 Uncollected 0.9% Sodium Chloride Inj [Ns] 1,000 ml Med 03/21/19 10:33 Discontinued IV 999 mls/hr Albuterol 2.5MG/Ipratrop 0.5MG [Duoneb (A & A)] Med 03/21/19 10:09 Discontinued 3 ml INH NOW ONE Hydromorphone [Dilaudid] Med 03/21/19 11:09 Discontinued 1 mg IV NOW ONE Levofloxacin 500 mg/D5w [Levaquin 500 mg/D5w] Med 03/21/19 11:56 Discontinued 500 mg in 100 ml IV NOW Methylprednisolone Sod Succ [Solu-Medrol] Med 03/21/19 10:09 Discontinued 125 mg IV NOW ONE Ondansetron [Zofran] Med 03/21/19 11:09 Discontinued 4 mg IV NOW ONE Aerosol Treatments Routine Oth 03/21/19 10:10 Completed Aerosol Treatments Stat Oth 03/21/19 10:10 Completed BIPAP Stat Oth 03/21/19 11:20 Active Oxygen Device Stat Oth 03/21/19 10:33 Completed EKG [EKG] Stat Ther 03/21/19 10:[address] Chawla's office. Pt has L proximal humerus fx in 4 pieces with L hip contusion. Pt refused abg's saying that Dr Driver always asks her to get them and "it's always me that hurts, not him!". Pt refused to wear bipap in the ER. Result Diagrams: 03/21/19 10:15 03/21/19 10:50 - REASSESSMENT Reassessment #1 Time Reassessed: 10:13 Status: improving (O2 sat 96% on nonrebreather) - EKG 1 Time of EKG reading by physician:: 10:08 EKG Read and Signed by:: Perez Dan EKG Interpretation (*Must complete 3 of following elements*): Abnormal Rate: 129 Rhythm: Sinus tach [place]: normal QRS: normal MA Interval: normal ST Wave: non-specific ST changes - XRAY 1 XRAY Study: Chest Impression: See EMR Report ([facility] - [address], [address], [place] [address] [place] [address] Department of Imaging Patient: HERBER DOWNS Date: 03/21/19MR#: [id number] : 1965ADM Status: REG ERAcct#: [id number] Age/Sex: 53/FRoom/Bed: Loc: ED Ordering Physician: Perez Dan MD Family Physician: Carl Driver MD Reason for Procedure: sob ___ Signed EXAM: CHEST-1 VIEW 03/21/2019 HISTORY: sob TECHNIQUE: AP portable upright at 1039 COMMENT: The inspiration is suboptimal. There is diffuse alveolar opacity bilaterally which was not the case on 11/16/2018. IMPRESSION: Pulmonary edema plus minus pneumonia. Electronically signed by Christopher Perez 03/21/2019 10:49 AM 03/21/19 1049 Interpreting Physician: Christopher Perez MD Dictated Date/Time: 03/21/19 1048 cc: Perez Dan MD; Carl Driver MD) - CT/MRI 1 CT Study: Angiogram (Pulmonary Arteries) Impression: See EMR Report ([facility] - [address] [facility], [place] [address] [place] [id number] Department of Imaging Patient: HERBER DOWNS [facility] Date: 03/21/19MR#: [id number] : 1965ADM Status: REG ERAcct#: [id number] Age/Sex: 53/FRoom/Bed: Loc: ED Ordering Physician: Farhad Dan MD Family Physician: Carl Driver MD Reason for Procedure: sob, elevated d- dimer Signed EXAM: CT ANGIOGRM PULMONARY ARTERIES 03/21/2019 HISTORY: sob, elevated d-dimer TECHNIQUE: This exam was performed using automated exposure control, adjustment of mA or kV according to patient size, and/or use of iterative reconstruction technique. COMMENT: 3-D MIPS were performed. Comparison is made with the previous study of 11/26/2011. There are no filling defects in the pulmonary arteries. There is right paratracheal prevascular and aorticopulmonary window adenopathy as well as left hilar adenopathy. There is a small hiatal hernia. The adenopathy was present at the time the previous study. There are patchy alveolar and groundglass opacities throughout both lungs with areas of sparing particularly in the upper lobes. This was also largely present previously although there may be slightly more extensive groundglass opacity in the upper lobes. The regional skeleton is intact. This patient has a history of biopsy-proven hypersensitivity pneumonitis with terminal clerk radiographic changes. IMPRESSION: No evidence of pulmonary emboli. Extensive alveolar changes and mediastinal and hilar adenopathy which are largely stable since 11/26/2011. The possibility of acute exacerbation is suggested. Electronically signed by Christopher Perez 03/21/2019 12:59 PM 03/21/19 1259 Interpreting Physician: Christopher Perez MD Dictated Date/Time: 03/21/19 1249 cc: Perez Dan MD; Carl Driver MD) - CONSULTS/PCP/HOSPITALIST Notification #1 *Consult/PCP/Hospitalist*: Dr. Driver Time Discussed: 13:05 Reason/Comments: CHF, sepsis, pneumonia Consult Disposition: Admit Departure - Departure Date of Disposition Decision: 03/21/19 Time of Disposition Decision: 13:06 DIAGNOSIS: Tobacco use, Hypersensitivity pneumonitis CHF (congestive heart failure) Qualifiers: Heart failure type: unspecified Heart failure chronicity: acute Qualified Code(s): I50.9 - Heart failure, unspecified Sepsis Qualifiers: Sepsis type: sepsis due to unspecified organism Sepsis acute organ dysfunction status: unspecified Qualified Code(s): A41.9 - Sepsis, unspecified organism Pneumonia Qualifiers: Pneumonia type: due to unspecified organism Laterality: unspecified laterality Lung location: unspecified part of lung Qualified Code(s): J18.9 - Pneumonia, unspecified organism Disposition: ADMITTED INPATIENT 09 Certified Medical Emergency: Emergent Condition: Serious Referrals and Follow-Ups: Carl Driver MD [Primary Care Provider] - Discharge Education: Steps to Quit Smoking, Lzdl-lb-Hkws - Critical Care Note This patient required my direct & personal management of CC.: Yes Total Time (mins): 60 Critical Care Statement: This patient required my direct personal management to treat or rule out processes, the absence of which, could potentiallly result in sudden, clinically significant life or limb threatening deterioration. Attestation - Physician/ CHELI Attestation Patient care was provided by Advanced Practice Provider:: No The physician spent face to face time with patient:: Yes Advanced Practice Provider documentation review:: Supervising physician onsite and consulted in the evaluation and care of this patient. The physician did have a face to face encounter with the patient. This chart was documented by the indicated scribe, (Vandana Be, Nilo) and accurately reflects the services I performed and decisions made by me, Perez Dan MD, as attested by the provider's signature.
[2019-03-21] MEDS ORDERED: DILAUDID IV ONE (11:09)
[2019-03-21] MEDS ORDERED: ZOFRAN IV ONE (11:09)
[2019-03-21 11:26] LABS: ALLEN TEST NO; BE -2.6 mmoll (-3.0-3.0); BLOOD TYPE ARTERIAL; HCO3-(ACT) 22.8 mmoll (20.0-26.0); METHB 1.9 % (0.0-1.5); O2(CT) 13.1 mL/dL (15.0-23.0); O2HB 93.2 % (95.0-99.0); PCO2(98.6) 33 mmHg (35-45); PO2(98.6) 88 mmHg (60-100); SAMPLE BLOOD; SAO2 98.6 % (95.0-100.0); THB 9.9 g/dL (11.5-17.4); pH(98.6) 7.42 (7.35-7.45)
[2019-03-21 11:27] LABS: MODALITY NRB
[2019-03-21 11:54] LABS: AGAP 19; ALB/GLOB RATIO 0.8; ALBUMIN 2.8 g/dL (3.5-5.0); ALKALINE PHOSPHATASE 89 U/L (32-104); BUN 15 mg/dL (8-22); CALCIUM 8.4 mg/dL (8.8-10.2); CHLORIDE 98 mmol/L (98-107); COSMO 278; CREATININE 0.8 mg/dL (0.5-0.9); ESTIMATED GFR > 60; GLUCOSE 125 mg/dL (70-104); GOT 35 U/L (10-30); GPT 7 U/L (10-36); POTASSIUM 3.4 mmol/L (3.5-5.1); SODIUM 138 mmol/L (136-145); TCO2 21 mmol/L (25-35); TOTAL PROTEIN 6.2 g/dL (6.3-8.3)
[2019-03-21] MEDS ORDERED: LEVAQUIN 500 MG/D5W 500 MG/100 ML IVPB IV ONE (11:56)
[2019-03-21] MEDS: LEVAQUIN 500 MG/D5W 500 MG/100 ML IVPB IV SCH (13:00)
--- NOTE | 2019-03-21 13:01 | Diag Imaging Result Doc PS360 ---
EXAM: CT ANGIOGRM PULMONARY ARTERIES 03/21/2019 HISTORY: sob, elevated d-dimer TECHNIQUE: This exam was performed using automated exposure control, adjustment of mA or kV according to patient size, and/or use of iterative reconstruction technique. COMMENT: 3-D MIPS were performed. Comparison is made with the previous study of 11/26/2011. There are no filling defects in the pulmonary arteries. There is right paratracheal prevascular and aorticopulmonary window adenopathy as well as left hilar adenopathy. There is a small hiatal hernia. The adenopathy was present at the time the previous study. There are patchy alveolar and groundglass opacities throughout both lungs with areas of sparing particularly in the upper lobes. This was also largely present previously although there may be slightly more extensive groundglass opacity in the upper lobes. The regional skeleton is intact. This patient has a history of biopsy-proven hypersensitivity pneumonitis with prison radiographic changes. IMPRESSION: No evidence of pulmonary emboli. Extensive alveolar changes and mediastinal and hilar adenopathy which are largely stable since 11/26/2011. The possibility of acute exacerbation is suggested. Electronically signed by Christopher Perez 03/21/2019 12:59 PM
[2019-03-21 13:34] LABS: CK-MB 4.22 ng/mL (0.0-5.0)
[2019-03-21 14:15] LABS: URINE SOURCE CLEAN CATCH
[2019-03-21 14:20] LABS: BILIRUBIN URINE NEGATIVE (NEGATIVE); BLOOD URINE NEGATIVE (NEGATIVE); COLOR YELLOW; GLUCOSE URINE NEGATIVE (NEGATIVE); KETONE URINE NEGATIVE (NEGATIVE); LEUKOCYTES URINE SMALL (NEGATIVE); NITRITE URINE POSITIVE (NEGATIVE); PH URINE 6.5; PROTEIN URINE 30 mg/dL (NEGATIVE); TURBIDITY URINE CLEAR (CLEAR); UROBILINOGEN URINE 3 mg/dL (NORMAL)
[2019-03-21 14:21] LABS: UR EPITHELIAL CELLS <10 /HPF (<10); URINE BACTERIA 4+ /HPF; URINE RBC <10 /HPF (<10); URINE WBC 20-40 /HPF (<10)
[2019-03-21 14:23] LABS: SP GRAVITY URINE 1.015
[2019-03-21] MEDS ORDERED: ZOFRAN IV PRN (15:00)
[2019-03-21] MEDS ORDERED: DILAUDID IV PRN (15:37)
[2019-03-21] MEDS: DUONEB (A & A) INH SCH ×3 (16:16→23:30)
[2019-03-21] MEDS: LOVENOX SUBQ SCH (16:43)
[2019-03-21] MEDS ORDERED: SODIUM CHLORIDE 0.9% INJ SCH ×2 (19:30→19:45)
--- NOTE | 2019-03-21 20:28 | HISTORY AND PHYSICAL ---
CHIEF COMPLAINT: Shortness of breath. HISTORY OF PRESENT ILLNESS: She is a 53-year-old white female who woke up from sleep with acute shortness of breath. She has an appointment to see me today. Apparently, she could not breathe, and the family brought her to the emergency room. Prior to this, she had a fall 2 days after Alanna with injury to the left shoulder. Apparently, she was seen by Dr. Chawla. It has been reported fractured at different 4 places of humerus. I do not have the x-ray report. The patient was put on sling, and in the ER, patient was in florid diffuse infiltrates. She was hypoxic. She has history of hypersensitive pneumonitis with mold in the past. ER workup was reviewed and chest x-ray with bilateral interstitial infiltrate and also has humeral fracture on the left side. Basically admitted to the hospital with acute hypoxic failure due to infiltrates. ProBNP was high. Patient was given Levaquin, Lasix, oxygen, refusing for BiPAP. Has been admitted in ICU. The patient is emotionally very labile, and basically I am going to rule out congestive heart failure, check the echocardiography, continue to be treated as an noncardiogenic edema with hypersensitivity pneumonitis in the past. EKG with sinus tachycardia, nothing acute. Follow up on cardiac enzymes. PAST MEDICAL HISTORY: Abnormal EKG. Previous catheterization was negative in 2011, chronic tobacco abuse, bipolar disorder, chronic anxiety, acid reflux disease, chronic nicotine dependency, menopausal symptom, B12 deficiency. PAST SURGICAL HISTORY: Bilateral reduction mammoplasty, cholecystectomy, hysterectomy, left brachial cyst repair, left hip replacement, recent fracture of the left humerus. MEDICATIONS: Depakote 125 p.o. b.i.d., Lunesta 2 mg at bedtime, Zoloft 25 daily, benztropine 0.5 at bedtime, Risperdal 2 mg daily. ALLERGIES: Penicillin. SOCIAL HISTORY: 3 children, self-employed, off and on smoking. No drugs. No alcohol abuse. FAMILY HISTORY: Father is alive with dementia and diabetes. Mom of bypass complication at 61. HEALTH MAINTENANCE: Pneumococcal vaccine was given 11/09/2018. Echocardiography on 11/09/2018 showed pulmonary hypertension. LV function was normal. REVIEW OF SYSTEMS: HEENT: No headache. No vision problem. No earache. No sore throat. Neck: No goiter. No lymphadenopathy. No bruit. Cardiopulmonary: Left arm pain on sling. No chest pain, shortness of breath, PND, orthopnea. No swelling of legs. Gastrointestinal: No nausea, vomiting, abdominal pain. Genitourinary: No history of hesitancy, frequency. No joint pain. Neurologic: No focal symptoms or weakness. PHYSICAL EXAMINATION: GENERAL: She is tachycardic, hypoxic. Vitals are stable, 98%, hyperventilating, anxious. HEENT: Within normal limits. NECK: Supple. CHEST: No crackles. HEART: Sounds are tachycardic. EXTREMITIES: Left arm is swollen. ABDOMEN: Belly is soft, nontender. NEUROLOGICAL: No obvious neurological deficits. INVESTIGATIONS: CBC: White cell count 17.6, hematocrit 31, platelets 550,000. PT/INR is normal. D-dimer was positive. ABG: pH is 7.42, pCO2 of 33, pO2 of 88. Sodium 138, potassium 3.4, chloride 98, glucose 125, CK 414. Troponin was normal. ProBNP was high. Urinalysis is positive for infection. Chest x-ray: Bilateral infiltrates. EKG: Sinus tachycardia, nothing acute. Pulmonary angiogram: No PE. ASSESSMENT AND PLAN: 1. A 53-year-old white female admitted to the hospital with symptoms of heart failure with paroxysmal nocturnal dyspnea, orthopnea, elevated proBNP. EKG is negative. Plan is check the echocardiography, rule out myocardial infarction and also hypersensitive pneumonitis. Continue intravenous steroids and superimposed infection. We will use a combination of aztreonam and Levaquin. 2. Possible urinary tract infection. Continue on Levaquin. 3. Gastrointestinal prophylaxis with Nexium. Deep venous thrombosis prophylaxis with Lovenox. 4. Left shoulder fracture on sling with Dilaudid for pain, refills on the medicines. We will follow up on the labs. Discussed with the family. cc: Mauricio Driver MD
[2019-03-21] MEDS: LASIX IV SCH (20:29)
[2019-03-21] MEDS: AMBIEN PO SCH (20:29)
[2019-03-21] MEDS: PROTONIX IV SCH (20:29)
[2019-03-21] MEDS: SOLU-MEDROL IV SCH (20:29)
[2019-03-21] MEDS: DILAUDID IV PRN (20:30)
[2019-03-21] MEDS ORDERED: ESZOPICLONE PO SCH (21:00)
[2019-03-21] MEDS: AZACTAM 1 GM in NS 50 ML IV SCH (21:00)
[2019-03-22] MEDS: DILAUDID IV PRN ×5 (00:34→21:33)
[2019-03-22] MEDS: SOLU-MEDROL IV SCH ×3 (03:07→18:30)
[2019-03-22] MEDS: AZACTAM 1 GM in NS 50 ML IV SCH ×3 (03:08→20:15)
[2019-03-22] MEDS: DUONEB (A & A) INH SCH ×6 (03:43→23:28)
[2019-03-22 04:40] LABS: ALLEN TEST YES; BE 2.3 mmoll (-3.0-3.0); BLOOD TYPE ARTERIAL; HCO3-(ACT) 26.7 mmoll (20.0-26.0); METHB 2.3 % (0.0-1.5); MODALITY PRB; O2(CT) 17.1 mL/dL (15.0-23.0); O2HB 95.2 % (95.0-99.0); PCO2(98.6) 46 mmHg (35-45); PO2(98.6) 147 mmHg (60-100); SAMPLE BLOOD; SAO2 99.1 % (95.0-100.0); THB 12.6 g/dL (11.5-17.4); pH(98.6) 7.39 (7.35-7.45)
[2019-03-22 06:03] LABS: ESTIMATED GFR > 60
[2019-03-22 06:04] LABS: BASO# 0.01 X1000 (0.0-0.2); BASO% 0.1 % (0.0-0.8); EOS# 0.01 X1000 (0.0-0.7); EOS% 0.1 % (0.0-10.0); HEMATOCRIT 26.4 % (37.0-47.0); HEMOGLOBIN 8.3 g/dL (12.0-16.0); IMM GRAN# 0.07 X1000 (0.0-0.04); IMM GRAN% 0.5 % (0.0-0.5); LYMPH# 1.41 X1000 (1.2-3.4); LYMPH% 9.5 % (20.5-51.1); MCH 29.5 PG (27-31); MCHC 31.4 g/dL (33-37); MONO# 1.29 X1000 (0.11-0.59); MONO% 8.7 % (1.7-9.3); MPV 10.2 FL (7.4-10.4); NEUT# 12.03 X1000 (1.4-6.5); NEUT% 81.1 % (42.2-75.2); PLT 459 X1000 (130-400); RBC 2.81 XMIL (4.2-5.4); RDW 14.5 % (11.5-14.5); WBC 14.82 X1000 (4.8-10.8)
[2019-03-22 06:05] LABS: AGAP 15; BUN 13 mg/dL (8-22); C REACTIVE PROT QUANT 330.18 mg/L (0.00-5.00); CALCIUM 8.9 mg/dL (8.8-10.2); CHLORIDE 97 mmol/L (98-107); CHOLESTEROL 92 mg/dL (0-200); CK PROFILE 221 U/L (24-173); COSMO 279; CREATININE 0.7 mg/dL (0.5-0.9); GLUCOSE 161 mg/dL (70-104); HDL 22 mg/dL (45-65); LDL 35 mg/dL; POTASSIUM 3.5 mmol/L (3.5-5.1); SODIUM 138 mmol/L (136-145); TCO2 26 mmol/L (25-35); TRIGLYCERIDES 177 mg/dL (35-135); VLDL 35 mg/dL
[2019-03-22 06:29] LABS: CK INDEX 1.5 (0.0-2.5); CK-MB 3.21 ng/mL (0.0-5.0)
[2019-03-22] MEDS: PROTONIX IV SCH (06:34)
--- NOTE | 2019-03-22 07:19 | EKG Report ---
Test Performed on : 03/22/2019 06:25:24 AM Test Reason : cp Blood Pressure : / mmHG Vent. Rate : 100 BPM Atrial Rate : 100 BPM P-R Int : 180 ms QRS Dur : 092 ms QT Int : 376 ms P-R-T Axes : 051 006 -24 degrees QTc Int : 485 ms Normal sinus rhythm. Possible Left atrial enlargement Low voltage QRS Nonspecific T wave abnormality Prolonged QT Abnormal ECG When compared with ECG of 21-MAR-2019 10:08, (Unconfirmed) No significant change was found Confirmed by Yuriy WHITAKER, Teofilo Vega ([id number]) on 03/25/2019 9:26:44 AM
--- NOTE | 2019-03-22 07:34 | Diag Imaging Result Doc PS360 ---
EXAM: CHEST-1 VIEW INDICATION: SOB TECHNIQUE: One view COMPARISON: 03/21/2019 FINDINGS: Diffuse bilateral infiltrates suggesting pulmonary edema +/- pneumonia are grossly stable. No new consolidation is identified. Cardiac silhouette is stable. IMPRESSION: Stable chest. Electronically signed by Brian Stewart 03/22/2019 7:31 AM
[2019-03-22] MEDS: LASIX IV SCH ×2 (08:47→20:15)
[2019-03-22] MEDS: RISPERDAL PO SCH (08:47)
[2019-03-22] MEDS ORDERED: SOLU-MEDROL IV SCH (09:00)
[2019-03-22] MEDS: LEVAQUIN 500 MG/D5W 500 MG/100 ML IVPB IV SCH (13:07)
[2019-03-22] MEDS: LOVENOX SUBQ SCH (15:13)
--- NOTE | 2019-03-22 16:49 | ECHO REPORT ---
ORDER DATE: 03/21/2019 ECHOCARDIOGRAPHIC MEASUREMENTS: 1. Interventricular septum 0.9. Left ventricular posterior wall 0.7. Diastolic diameter 4.5. 2. Left atrium 3.7. 3. Aorta 3.1. 4. Tricuspid valve was normal. 5. Aortic valve leaflets are trileaflet. 6. Pulmonic valve was normal. There is mild pulmonary regurgitation. 7. Mild tricuspid regurgitation. Peak velocity across the tricuspid valve was 2.8 m/sec. There is mild mitral regurgitation. 8. Normal left ventricular cavity size. 9. Endocardium not well visualized in all views. Estimated ejection fraction of 60%. Normal right ventricular cavity size and function. cc: MD Mauricio Perrin MD
[2019-03-22] MEDS ORDERED: SODIUM CHLORIDE 0.9% INJ PRN (19:00)
--- NOTE | 2019-03-22 20:17 | PROGRESS NOTE ---
DATE: 03/22/2019 SUBJECTIVE: The patient is little better, hyperventilating, lot of pain from the left shoulder fracture. REVIEW OF SYSTEMS: None reported. OBJECTIVE: Vital signs: Patient is tachycardic. Vitals are stable, afebrile. HEENT: Within normal limits. Neck: Supple. Lungs: Bilateral air entry. No crackles. Heart: Sounds are tachycardic. Abdomen: Belly is soft and nontender. Extremities: No peripheral edema. Left shoulder is diffusely swollen. INVESTIGATIONS: White cell count 14.8, hematocrit 26, platelets 459,000. ABGs: pH is 7.39, pCO2 46, pO2 147, on 80%. SMA 7 is normal. CRP was elevated. ProBNP was decreasing. Triglycerides 177. EKG: Sinus tachycardia, nothing acute. Chest x-ray: Diffuse bilateral infiltrates. Echocardiography report: Normal LV systolic function. EF 60%. ASSESSMENT AND PLAN: 1. Acute hypoxic failure due to noncardiogenic edema, due to hypersensitivity pneumonitis. Continue intravenous antibiotics with Levaquin and aztreonam along with intravenous steroids. 2. Gastrointestinal prophylaxis with intravenous Nexium. 3. Deep venous thrombosis prophylaxis with Lovenox. 4. Wean off oxygen to 50% Ventimask. 5. Left shoulder fracture, on sling, under the care of Dr. Chawla. 6. Bipolar disorder, on Depakote and Risperdal. 7. Continue chest x-rays and blood workup. 8. Dr. Dolan is going to follow up over the weekend. LEVEL OF DOCUMENTATION: 25 minutes. cc: Mauricio Driver MD
[2019-03-22] MEDS: AMBIEN PO SCH (20:21)
[2019-03-23] MEDS: SOLU-MEDROL IV SCH ×3 (02:56→21:30)
[2019-03-23] MEDS: AZACTAM 1 GM in NS 50 ML IV SCH ×3 (03:03→21:00)
[2019-03-23] MEDS: DUONEB (A & A) INH SCH ×6 (03:25→23:20)
[2019-03-23] MEDS: PROTONIX IV SCH (06:11)
[2019-03-23 07:08] LABS: BASO# 0.01 X1000 (0.0-0.2); BASO% 0.1 % (0.0-0.8); HEMOGLOBIN 8.2 g/dL (12.0-16.0); IMM GRAN# 0.11 X1000 (0.0-0.04); IMM GRAN% 0.7 % (0.0-0.5); LYMPH# 1.15 X1000 (1.2-3.4); LYMPH% 7.4 % (20.5-51.1); MCH 30.1 PG (27-31); MCHC 31.5 g/dL (33-37); MCV 95.6 FL (81-99); MONO# 1.09 X1000 (0.11-0.59); MPV 10.1 FL (7.4-10.4); NEUT# 13.14 X1000 (1.4-6.5); NEUT% 84.8 % (42.2-75.2); PLT 558 X1000 (130-400); RBC 2.72 XMIL (4.2-5.4); RDW 14.8 % (11.5-14.5)
[2019-03-23 07:18] LABS: AGAP 17; BUN 20 mg/dL (8-22); CALCIUM 9.1 mg/dL (8.8-10.2); CHLORIDE 96 mmol/L (98-107); COSMO 283; CREATININE 0.7 mg/dL (0.5-0.9); ESTIMATED GFR > 60; GLUCOSE 152 mg/dL (70-104); POTASSIUM 3.9 mmol/L (3.5-5.1); SODIUM 139 mmol/L (136-145); TCO2 26 mmol/L (25-35)
--- NOTE | 2019-03-23 07:19 | Diag Imaging Result Doc PS360 ---
EXAM: CHEST-1 VIEW 03/23/2019 HISTORY: SOB TECHNIQUE: AP portable at 0538 COMMENT: There is a badly comminuted fracture of the left humeral head. There is also apparent dislocation. There is interstitial opacity throughout both lungs which was also the case on 03/22/2019. IMPRESSION: 1. Stable pulmonary edema. 2. Left humeral head fracture and dislocation. Electronically signed by Christopher Perez 03/23/2019 7:16 AM
[2019-03-23] MEDS: LASIX IV SCH ×2 (08:35→21:31)
[2019-03-23] MEDS: RISPERDAL PO SCH (08:35)
[2019-03-23] MEDS: LEVAQUIN 500 MG/D5W 500 MG/100 ML IVPB IV SCH (12:37)
[2019-03-23] MEDS: DILAUDID IV PRN ×3 (12:37→21:29)
--- NOTE | 2019-03-23 15:21 | PROGRESS NOTE ---
DATE: 03/23/2019 SUBJECTIVE: Ms. Julian is a 53-year-old, white female, with acute hypoxemic failure from alveolae pneumonia. She is getting IV steroids, Levaquin, as well as Azactam and IV Lasix. OBJECTIVE: Vital signs: Stable. Lungs: Still reveal mild expiratory wheezing with occasional basal rales. LABORATORY DATA: Arterial blood gases this morning revealed pH 7.39, pCO2 of 46, PO2 of 147. She is on 50% FiO2 through Ventimask. Her white count was 15.50, hemoglobin 8.2, hematocrit 26. CRP and proBNP are quite elevated. ASSESSMENT/PLAN: She is on IV Solu-Medrol 60 mg q.8 hours, IV Levaquin 100 mg every 24 hours, and Azactam 1 g IV q.8 hours. She is feeling better. Her overall condition is otherwise unchanged. We will continue with the current management. cc: MD Mauricio Fofana MD MTDD
[2019-03-23] MEDS: LOVENOX SUBQ SCH (16:00)
[2019-03-23] MEDS: AMBIEN PO SCH (21:31)
[2019-03-24] MEDS: SOLU-MEDROL IV SCH ×3 (03:00→20:30)
[2019-03-24] MEDS: DILAUDID IV PRN ×5 (03:01→21:37)
[2019-03-24] MEDS: DUONEB (A & A) INH SCH ×6 (03:39→23:10)
[2019-03-24] MEDS: AZACTAM 1 GM in NS 50 ML IV SCH ×3 (05:00→21:00)
[2019-03-24 05:19] LABS: BASO# 0.02 X1000 (0.0-0.2); BASO% 0.1 % (0.0-0.8); EOS# 0.08 X1000 (0.0-0.7); EOS% 0.5 % (0.0-10.0); HEMATOCRIT 28.8 % (37.0-47.0); IMM GRAN# 0.15 X1000 (0.0-0.04); LYMPH# 1.56 X1000 (1.2-3.4); LYMPH% 10.1 % (20.5-51.1); MCHC 31.3 g/dL (33-37); MONO# 1.13 X1000 (0.11-0.59); MONO% 7.3 % (1.7-9.3); MPV 9.9 FL (7.4-10.4); PLT 594 X1000 (130-400); RDW 14.8 % (11.5-14.5); WBC 15.44 X1000 (4.8-10.8)
[2019-03-24] MEDS: AMBIEN PO SCH ×2 (05:44→21:28)
[2019-03-24] MEDS: PROTONIX IV SCH (06:08)
[2019-03-24 06:38] LABS: AGAP 18; BUN 22 mg/dL (8-22); CALCIUM 8.9 mg/dL (8.8-10.2); CHLORIDE 95 mmol/L (98-107); COSMO 283; CREATININE 0.8 mg/dL (0.5-0.9); ESTIMATED GFR > 60; GLUCOSE 133 mg/dL (70-104); POTASSIUM 4.2 mmol/L (3.5-5.1); SODIUM 139 mmol/L (136-145); TCO2 26 mmol/L (25-35)
--- NOTE | 2019-03-24 07:09 | Diag Imaging Result Doc PS360 ---
EXAM: CHEST-1 VIEW 03/24/2019 HISTORY: SOB TECHNIQUE: AP portable at 0559 COMMENT: There is patchy alveolar and generalized interstitial pulmonary edema. This was also present on 03/23/2019 and 03/22/2019. There has been no appreciable change. IMPRESSION: Pulmonary edema. Stable fracture of the left humeral head and dislocation. Electronically signed by Christopher Perez 03/24/2019 7:07 AM
[2019-03-24] MEDS: RISPERDAL PO SCH (08:23)
[2019-03-24] MEDS: LASIX IV SCH ×2 (08:23→21:37)
--- NOTE | 2019-03-24 11:35 | PROGRESS NOTE ---
DATE: 03/24/2019 She is in ICU bed 12. Her vital signs are stable. The lungs reveal some expiratory wheezing. Occasional basal rales. Chest x-ray shows pulmonary edema. Electrolytes are normal. Blood sugar is 135. White count was 15.44, hemoglobin 9 g, hematocrit 28.8. X-ray showed the previous fracture of the left humerus. She on IV Levaquin and Solu-Medrol which we are going to continue. She uses 50% of oxygen through Ventimask. We will continue that. -5 cc: MD Mauricio Fofana MD
[2019-03-24] MEDS: LEVAQUIN 500 MG/D5W 500 MG/100 ML IVPB IV SCH (12:59)
[2019-03-24] MEDS: LOVENOX SUBQ SCH (16:25)
[2019-03-25] MEDS: DILAUDID IV PRN ×2 (01:32→08:00)
[2019-03-25] MEDS: DUONEB (A & A) INH SCH ×6 (03:04→23:33)
[2019-03-25] MEDS: SOLU-MEDROL IV SCH ×3 (03:07→18:40)
[2019-03-25] MEDS: AZACTAM 1 GM in NS 50 ML IV SCH ×3 (03:07→19:36)
[2019-03-25] MEDS: HALDOL IV PRN ×2 (04:03→16:01)
[2019-03-25 04:41] LABS: ALLEN TEST YES; BE 10.9 mmoll (-3.0-3.0); BLOOD TYPE ARTERIAL; HCO3-(ACT) 33.4 mmoll (20.0-26.0); METHB 1.7 % (0.0-1.5); O2HB 93.8 % (95.0-99.0); PO2(98.6) 78 mmHg (60-100); SAMPLE BLOOD; SAO2 97.4 % (95.0-100.0); THB 11.3 g/dL (11.5-17.4); pH(98.6) 7.46 (7.35-7.45)
[2019-03-25 04:42] LABS: MODALITY VENTIMASK; PCO2(98.6) 51 mmHg (35-45)
[2019-03-25] MEDS: PROTONIX IV SCH (06:41)
[2019-03-25] MEDS ORDERED: ATIVAN IV PRN (07:55)
[2019-03-25] MEDS ORDERED: GEODON IM PRN (07:55)
[2019-03-25] MEDS: RISPERDAL PO SCH (09:09)
[2019-03-25] MEDS: DEPAKOTE PO SCH (09:09)
[2019-03-25] MEDS: ZOLOFT PO SCH (09:09)
[2019-03-25] MEDS: LASIX IV SCH ×2 (09:09→20:57)
[2019-03-25] MEDS ORDERED: STERILE WATER INJ. ONE (10:25)
[2019-03-25] MEDS ORDERED: STERILE WATER INJ. INJ SCH (10:30)
[2019-03-25] MEDS: ATIVAN IV ONE ×2 (11:20→14:04)
[2019-03-25] MEDS: NICODERM PATCH TD PRN (11:21)
[2019-03-25] MEDS: LEVAQUIN 500 MG/D5W 500 MG/100 ML IVPB IV SCH (14:05)
[2019-03-25] MEDS: LOVENOX SUBQ SCH (15:20)
[2019-03-25 16:29] LABS: URINE SOURCE CATH
[2019-03-25 16:34] LABS: BILIRUBIN URINE NEGATIVE (NEGATIVE); BLOOD URINE NEGATIVE (NEGATIVE); COLOR YELLOW; GLUCOSE URINE NEGATIVE (NEGATIVE); KETONE URINE NEGATIVE (NEGATIVE); LEUKOCYTES URINE NEGATIVE (NEGATIVE); NITRITE URINE NEGATIVE (NEGATIVE); PH URINE 6.5; PROTEIN URINE NEGATIVE (NEGATIVE); SP GRAVITY URINE 1.007; TURBIDITY URINE CLEAR (CLEAR); UROBILINOGEN URINE NORMAL (NORMAL)
[2019-03-25 16:35] LABS: UR EPITHELIAL CELLS <10 /HPF (<10); URINE BACTERIA NEGATIVE /HPF; URINE RBC <10 /HPF (<10); URINE WBC <10 /HPF (<10)
[2019-03-25] MEDS: AMBIEN PO SCH (21:42)
[2019-03-26] MEDS: DEPAKOTE PO SCH ×3 (00:29→20:05)
[2019-03-26] MEDS: COGENTIN PO SCH ×2 (00:29→20:06)
[2019-03-26] MEDS: SOLU-MEDROL IV SCH ×3 (02:34→20:09)
[2019-03-26] MEDS: DUONEB (A & A) INH SCH ×6 (04:09→23:34)
[2019-03-26] MEDS: AZACTAM 1 GM in NS 50 ML IV SCH ×3 (04:20→20:10)
--- NOTE | 2019-03-26 04:26 | PROGRESS NOTE ---
DATE: 03/25/2019 SUBJECTIVE: The patient is very belligerent, agitated, extremely demanding, getting out of bed, and wants to go home. Pulled off Ventimask, very hypoxic, and tachycardic. I spoke to the on the telephone. She is to sick to go home. She still needs some oxygen. She has comminuted fracture on the left shoulder. She has withdrawals from manic phase. PHYSICAL EXAMINATION: Vital Signs: Temperature 97 degrees, pulse 79, blood pressure stable, and 4 L nasal cannula 100%. HEENT: Exam within normal limits. Neck: Supple. Lungs: Decreased crackles. Heart: Tachycardic. Abdomen: Belly is soft and nontender. INVESTIGATIONS: ABG: pH is 7.46, pCO2 51, PO2 75 on 35% Ventimask. Chest x- ray yesterday stable. ASSESSMENT AND PLAN: 1. Bipolar disorder. Continue on benztropine and Depakote. 2. Nicotine abuse. Nicotrol patches. 3. Left comminuted fracture in sling. 4. Extremely agitated behavior. Need Ativan and Geodon restraints as needed. 5. [place] was placed. 6. DVT/GI prophylaxis as per order sheets. 7. Continue IV steroids and IV antibiotics. We will discontinue the chest CTA. I will check the labs in the morning. I spoke to the on the telephone as well as conference in my office at 5:00. She is too sick to go home and it will be against medical advice, and will follow up. LEVEL OF DOCUMENTATION: 35 minutes. cc: Mauricio Driver MD MTDD
[2019-03-26] MEDS: DILAUDID IV PRN ×4 (05:14→20:23)
[2019-03-26] MEDS: PROTONIX IV SCH (06:05)
[2019-03-26 07:06] LABS: AGAP 15; BUN 20 mg/dL (8-22); C REACTIVE PROT QUANT 26.49 mg/L (0.00-5.00); CALCIUM 9.2 mg/dL (8.8-10.2); CHLORIDE 94 mmol/L (98-107); COSMO 288; CREATININE 0.7 mg/dL (0.5-0.9); ESTIMATED GFR > 60; GLUCOSE 142 mg/dL (70-104); MAGNESIUM 2.3 mg/dL (1.5-2.7); POTASSIUM 3.9 mmol/L (3.5-5.1); SODIUM 142 mmol/L (136-145); TCO2 33 mmol/L (25-35)
[2019-03-26 07:11] LABS: BASO# 0.02 X1000 (0.0-0.2); BASO% 0.1 % (0.0-0.8); HEMATOCRIT 32.2 % (37.0-47.0); LYMPH# 1.22 X1000 (1.2-3.4); LYMPH% 8.5 % (20.5-51.1); MCH 29.5 PG (27-31); MCHC 31.1 g/dL (33-37); MONO# 0.97 X1000 (0.11-0.59); MONO% 6.8 % (1.7-9.3); MPV 9.3 FL (7.4-10.4); PLT 641 X1000 (130-400); RBC 3.39 XMIL (4.2-5.4); RDW 14.8 % (11.5-14.5); WBC 14.35 X1000 (4.8-10.8)
--- NOTE | 2019-03-26 07:32 | Diag Imaging Result Doc PS360 ---
EXAM: CHEST-1 VIEW INDICATION: SOB TECHNIQUE: One view COMPARISON: 03/24/2019 FINDINGS: Pulmonary edema and pulmonary venous congestion appears to have marginally improved. No new consolidation is identified. Cardiac silhouette is stable. IMPRESSION: Interval marginal improvement. Electronically signed by Brian Stewart 03/26/2019 7:30 AM
[2019-03-26] MEDS: LASIX IV SCH ×2 (08:00→20:10)
[2019-03-26] MEDS: ZOLOFT PO SCH (08:00)
[2019-03-26] MEDS: RISPERDAL PO SCH (08:01)
[2019-03-26] MEDS: NICODERM PATCH TD PRN (09:11)
[2019-03-26 09:23] LABS: LYMPHS 4 % (21-51); SEGS 94 % (42-75)
[2019-03-26] MEDS: LEVAQUIN 500 MG/D5W 500 MG/100 ML IVPB IV SCH (12:06)
[2019-03-26] MEDS: AMBIEN PO SCH (20:05)
[2019-03-26] MEDS: LOVENOX SUBQ SCH (20:10)
--- NOTE | 2019-03-27 00:12 | PROGRESS NOTE ---
DATE: 03/26/2019 SUBJECTIVE: The patient slept very well after giving restraints, Ativan and Geodon. The patient is not belligerent like yesterday. Chest x-ray slowly improving. He is on 3 L nasal cannula. OBJECTIVE: On exam, temperature is 98 degrees. Vital signs are stable. HEENT exam within normal limits. Chest is clear. Heart sounds are regular. Belly is soft, nontender. LABORATORY DATA: White cell count 14, hematocrit 32, platelets 641,000. SMA 7 is normal. CRP was coming down. ProBNP was coming down. ASSESSMENT AND PLAN: 1. Acute interstitial pneumonitis due to hypersensitivity reaction. Plan is continue intravenous Lasix along with intravenous antibiotics and steroids. 2. Deep venous thrombosis prophylaxis with Lovenox. 3. Gastrointestinal prophylaxis with Protonix. 4. Bipolar with agitation, stable. 5. If she continues to improve, we will slowly transfer to the stepdown unit and slowly wean off. We will follow up. Level of documentation 25 minutes. cc: Mauricio Driver MD
[2019-03-27] MEDS: AZACTAM 1 GM in NS 50 ML IV SCH ×3 (03:21→20:24)
[2019-03-27] MEDS: SOLU-MEDROL IV SCH ×3 (03:21→20:24)
[2019-03-27] MEDS: DILAUDID IV PRN ×5 (03:29→20:25)
[2019-03-27] MEDS: DUONEB (A & A) INH SCH ×6 (03:35→23:23)
[2019-03-27] MEDS: PROTONIX IV SCH (06:15)
--- NOTE | 2019-03-27 07:10 | Diag Imaging Result Doc PS360 ---
EXAM: CHEST-1 VIEW 03/27/2019 HISTORY: SOB TECHNIQUE: AP portable at 0600 COMMENT: There are platelike opacities in the right middle lobe and ill-defined opacity over the lateral left base partially obscuring the hemidiaphragm. These findings were also present on 03/26/2019. IMPRESSION: Bibasilar atelectasis and/or pneumonia. Electronically signed by Christopher Perez 03/27/2019 7:08 AM
[2019-03-27] MEDS: LASIX IV SCH ×2 (07:59→20:24)
[2019-03-27] MEDS: DEPAKOTE PO SCH ×2 (07:59→20:25)
[2019-03-27] MEDS: RISPERDAL PO SCH (07:59)
[2019-03-27] MEDS: ZOLOFT PO SCH (07:59)
[2019-03-27] MEDS: LEVAQUIN 500 MG/D5W 500 MG/100 ML IVPB IV SCH (11:47)
[2019-03-27] MEDS: AMBIEN PO SCH (20:25)
[2019-03-27] MEDS: COGENTIN PO SCH (20:25)
[2019-03-27] MEDS: LOVENOX SUBQ SCH (20:25)
--- NOTE | 2019-03-28 01:29 | PROGRESS NOTE ---
DATE: 03/27/2019 SUBJECTIVE: The patient is docile, anxious to go home, slowly getting better. Eating well. OBJECTIVE: Vitals: Stable. Oxygen weaned off to nasal cannula. HEENT: Within normal limits. Neck: Supple. Chest: Bilateral air entry. Heart: Sounds are regular. Abdomen: Soft, obese, nontender. Good bowel sounds. Neurologic: No obvious deficits. INVESTIGATIONS: None. ASSESSMENT AND PLAN: 1. Acute hypoxic failure is getting better. 2. Left commuted humeral fracture under the care of Dr. Ace. 3. Bipolar disorder. Continue present treatment with Depakote, Haldol and Risperdal as needed. 4. Deep venous thrombosis and gastrointestinal prophylaxis as per order sheet. 5. Physical therapy was added and if she continues to improve, will go to the floor. LEVEL OF DOCUMENTATION: Was 25 minutes. cc: Mauricio Driver MD
[2019-03-28] MEDS: DILAUDID IV PRN ×6 (01:39→21:14)
[2019-03-28] MEDS: AMBIEN PO SCH ×2 (01:49→21:09)
[2019-03-28] MEDS: DUONEB (A & A) INH SCH ×6 (03:26→23:30)
[2019-03-28] MEDS: SOLU-MEDROL IV SCH ×3 (03:55→21:11)
[2019-03-28] MEDS: AZACTAM 1 GM in NS 50 ML IV SCH ×3 (03:55→21:14)
[2019-03-28] MEDS: PROTONIX IV SCH ×2 (05:44→08:37)
[2019-03-28] MEDS: RISPERDAL PO SCH (08:25)
[2019-03-28] MEDS: LASIX IV SCH ×3 (08:25→21:10)
[2019-03-28] MEDS: ZOLOFT PO SCH (08:25)
[2019-03-28] MEDS: TYLENOL PO PRN ×2 (10:02→16:00)
[2019-03-28] MEDS: DEPAKOTE PO SCH ×2 (10:46→21:10)
[2019-03-28] MEDS: LEVAQUIN 500 MG/D5W 500 MG/100 ML IVPB IV SCH (13:44)
[2019-03-28] MEDS: COGENTIN PO SCH (21:10)
[2019-03-28] MEDS: LOVENOX SUBQ SCH (21:14)
--- NOTE | 2019-03-29 00:23 | PROGRESS NOTE ---
DATE: 03/28/2019 SUBJECTIVE: Patient moved out of ICU. The patient is very docile, decreased shortness of breath, anxious to go home. PHYSICAL EXAMINATION: Afebrile, vitals are stable, 97% on nasal cannula. HEENT: Within normal limits. Neck: Supple. Chest: Clear. Heart sounds are regular. Belly is soft, nontender. No obvious neurological deficits. ASSESSMENT: 1. Acute hypersensitive pneumonitis is getting better. 2. Left committed humeral fracture. Discussed with Dr. Chawla. Continue on the sling and follow up as an outpatient. 3. Bipolar disorder, stable. PLAN: If she continues to improve, will discharge in the morning. Continue outpatient physical therapy and oxygen and will follow up. LEVEL OF DOCUMENTATION: 25 minutes. cc: Mauricio Driver MD
[2019-03-29] MEDS: DILAUDID IV PRN ×3 (01:41→10:24)
[2019-03-29] MEDS: DUONEB (A & A) INH SCH ×2 (04:15→08:15)
[2019-03-29] MEDS: PROTONIX IV SCH (04:55)
[2019-03-29] MEDS: SOLU-MEDROL IV SCH (04:55)
[2019-03-29] MEDS: AZACTAM 1 GM in NS 50 ML IV SCH (04:56)
[2019-03-29] MEDS: TYLENOL PO PRN (04:56)
[2019-03-29 05:04] LABS: ALLEN TEST YES; BE 14.3 mmoll (-3.0-3.0); BLOOD TYPE ARTERIAL; MODALITY CANNULA; O2(CT) 14.3 mL/dL (15.0-23.0); PCO2(98.6) 49 mmHg (35-45); PO2(98.6) 110 mmHg (60-100); SAMPLE BLOOD; SAO2 98.7 % (95.0-100.0); THB 10.6 g/dL (11.5-17.4); pH(98.6) 7.51 (7.35-7.45)
[2019-03-29 07:06] LABS: BASO# 0.01 X1000 (0.0-0.2); HEMATOCRIT 31.5 % (37.0-47.0); HEMOGLOBIN 10.1 g/dL (12.0-16.0); IMM GRAN# 0.16 X1000 (0.0-0.04); IMM GRAN% 0.8 % (0.0-0.5); LYMPH# 0.91 X1000 (1.2-3.4); LYMPH% 4.4 % (20.5-51.1); MCH 29.9 PG (27-31); MCHC 32.1 g/dL (33-37); MCV 93.2 FL (81-99); MONO# 1.46 X1000 (0.11-0.59); MPV 9.2 FL (7.4-10.4); NEUT# 18.19 X1000 (1.4-6.5); NEUT% 87.8 % (42.2-75.2); PLT 556 X1000 (130-400); RBC 3.38 XMIL (4.2-5.4); RDW 14.2 % (11.5-14.5); WBC 20.73 X1000 (4.8-10.8)
[2019-03-29 07:28] LABS: AGAP 11; BUN 20 mg/dL (8-22); CALCIUM 8.8 mg/dL (8.8-10.2); CHLORIDE 91 mmol/L (98-107); COSMO 277; CREATININE 0.6 mg/dL (0.5-0.9); ESTIMATED GFR > 60; GLUCOSE 137 mg/dL (70-104); POTASSIUM 4.4 mmol/L (3.5-5.1); SODIUM 136 mmol/L (136-145); TCO2 34 mmol/L (25-35)
[2019-03-29 07:49] LABS: LYMPHS 4 % (21-51); MONO 6 % (1-9); SEGS 90 % (42-75)
[2019-03-29 08:14] VITALS: BP 98/54
[2019-03-29] MEDS: LASIX IV SCH (10:28)
--- NOTE | 2019-03-30 23:49 | DISCHARGE SUMMARY ---
ADMISSION DATE: 03/21/2019 DISCHARGE DATE: 03/29/2019 DISCHARGING DIAGNOSIS: Acute hypoxic respiratory failure due to noncardiogenic edema with bilateral nodular infiltrates due to hypersensitivity pneumonitis. SECONDARY DIAGNOSES: 1. Chronic tobacco abuse. 2. Bipolar disorder. 3. Chronic anxiety. 4. Acid reflux disease. 5. B12 deficiency. 6. Left comminuted fracture of the humerus. BRIEF HISTORY: Please see the H P that was done on 03/21/2019. In brief, she is a 53-year-old white female recently had a fall injury to the left humerus after 2 days [place]. The patient had a comminuted fracture of the left humerus seen by Dr. Chawla on the sling. Three days after that she woke up with severe shortness of breath, wheezing. As a result, came to the emergency room. In the ER, patient was found to have multiple bilateral infiltrates in the lung, associated with significant hypoxemia. She has known history of hypersensitivity pneumonitis due to mold off and on since 2009. She had extensive workup done before. She was admitted in ICU with hypoxemia. HOSPITAL COURSE: In the ICU, she was given oxygen, IV antibiotics, IV steroids, IV Lasix. DVT GI prophylaxis measures were given. proBNP was high. Followup on echocardiography. She has normal LV systolic function. Cardiac enzymes were negative. Prior cardiac workup was negative. The patient developed significant delirium agitation in the ICU requiring restraints and Haldol, Geodon, Ativan. She also withdrawing from nicotine for which nicotine patches were given. Slowly her clinical course improved and weaned off oxygen to the room air. She became more docile after starting back bipolar medications. She was transferred out of ICU in stable condition. At the time of discharge, patient is stable and white cell count 20, hematocrit 31.5, platelets 556,000, ABG pH is 7.51, pCO2 49, PO2 110 on 32%. Sodium 136, potassium 4.4, chloride 91, BUN 20, creatinine 0.6, elevated CRP was coming down to 26, as well as proBNP. Urinalysis is clear. Urine cultures, blood cultures were negative. Followup chest x-ray significant improvement of bilateral infiltrates. RADIOLOGY PROCEDURES: CT pulmonary angiogram: No evidence of pulmonary emboli, extensive valvular changes, and mediastinal hilar adenopathy, which is largely stable. Echocardiography findings normal LV function 60%. DISCHARGE INSTRUCTIONS ARE FOLLOWS: 1. Abstain from smoking. Pneumococcal vaccine given 11/09/2018. Follow up with Dr. Chawla for left comminuted fracture of the humerus. Depakote 125 p.o. b.i.d., Lunesta 1 tab 2 mg 1 at bedtime, Zoloft 25 daily, Cogentin 0.5 at bedtime, risperidone 2 mg daily, Breo 1 puff daily, Levaquin 500 daily for 10 days. 2. Medrol Dosepak, Prilosec 20 daily, Percocet 5 q. 6 as needed for pain #20. Follow up in my office in 2 weeks as well as Dr. Chawla. cc: Mauricio Driver MD
== END 2019-03-29 11:40 | disposition home or self-care (01) | DRG 189 ==
LOC: ED 09:57 → ICU 13:59 → 4N 03-28 07:37
PROVIDERS: ADMIT Internal Medicine; ATTEND Internal Medicine

== ENCOUNTER 2019-06-15 00:49 | Inpatient (IN) ==
[2019-06-15] MEDS ORDERED: MAXIPIME 2 GM in NS 100 ML IV ONE (01:18)
[2019-06-15] MEDS ORDERED: SOLU-MEDROL IV STA (01:18)
[2019-06-15] MEDS ORDERED: NS 1,000 ML IV ONE ×2 (01:21→05:40)
[2019-06-15] MEDS ORDERED: DUONEB (A & A) INH ONE (01:21)
[2019-06-15] MEDS ORDERED: VANCOMYCIN IV PER PHARMACY MISC SCH (01:30)
[2019-06-15 01:46] LABS: BASO# 0.04 X1000 (0.0-0.2); BASO% 0.2 % (0.0-0.8); EOS% 1.2 % (0.0-10.0); HEMATOCRIT 29.1 % (37.0-47.0); HEMOGLOBIN 9.3 g/dL (12.0-16.0); IMM GRAN# 0.03 X1000 (0.0-0.04); IMM GRAN% 0.2 % (0.0-0.5); LYMPH# 1.51 X1000 (1.2-3.4); LYMPH% 8.9 % (20.5-51.1); MCH 29.2 PG (27-31); MCV 91.5 FL (81-99); MONO# 1.09 X1000 (0.11-0.59); MONO% 6.4 % (1.7-9.3); MPV 9.1 FL (7.4-10.4); NEUT# 14.07 X1000 (1.4-6.5); NEUT% 83.1 % (42.2-75.2); PLT 427 X1000 (130-400); RBC 3.18 XMIL (4.2-5.4); RDW 13.9 % (11.5-14.5); WBC 16.94 X1000 (4.8-10.8)
[2019-06-15 01:57] LABS: INR 1.05; PROTIME 13.9 Seconds (11.0-16.0)
[2019-06-15 02:01] LABS: ALLEN TEST YES; BLOOD TYPE ARTERIAL; METHB 0.8 % (0.0-1.5); O2(CT) 8.7 mL/dL (15.0-23.0); O2HB 92.6 % (95.0-99.0); PCO2(98.6) 50 mmHg (35-45); PO2(98.6) 63 mmHg (60-100); SAMPLE BLOOD; SAO2 97.1 % (95.0-100.0); THB 6.6 g/dL (11.5-17.4); pH(98.6) 7.38 (7.35-7.45)
[2019-06-15] MEDS ORDERED: LASIX IV ONE (02:02)
[2019-06-15 02:04] LABS: MODALITY CANNULA
[2019-06-15 02:11] LABS: ESTIMATED GFR > 60
[2019-06-15 02:21] LABS: AGAP 14; ALBUMIN 3.4 g/dL (3.5-5.0); ALKALINE PHOSPHATASE 85 U/L (32-104); BUN 11 mg/dL (8-22); CALCIUM 9.1 mg/dL (8.8-10.2); CHLORIDE 86 mmol/L (98-107); COSMO 258; CREATININE 0.8 mg/dL (0.5-0.9); GLUCOSE 121 mg/dL (70-104); GOT 21 U/L (10-30); GPT < 5 U/L (10-36); POTASSIUM 4.4 mmol/L (3.5-5.1); SODIUM 128 mmol/L (136-145); TCO2 28 mmol/L (25-35); TOTAL BILIRUBIN 0.27 mg/dL (0.20-1.00); TOTAL PROTEIN 6.7 g/dL (6.3-8.3)
[2019-06-15] MEDS ORDERED: VANCOMYCIN 1,800 MG in NS 250 ML IV ONE (03:00)
[2019-06-15] MEDS ORDERED: ZOSYN IV ONE (03:00)
[2019-06-15 03:40] LABS: URINE SOURCE CLEAN CATCH
--- NOTE | 2019-06-15 03:54 | PROVIDER DOCUMENTATION ---
This chart was entered by Ashanti Landaverde Scribe, acting as scribe for Jamie Payan MD. HPI-General Adult - General Chief Complaint: Shortness of Breath Time Seen by Provider: 06/15/19 01:10 Source: patient Allergies/Adverse Reactions: Patient Allergies Allergy/AdvReac Type Severity Reaction Status Date / Time Penicillins Allergy HIVES Verified 03/21/19 11:06 Home Medications: Home Medication List Medication Instructions Recorded Confirmed Last Taken Type Benztropine Mesylate 0.5 mg PO QHS 03/21/19 03/21/19 Unknown History Divalproex [Depakote] 125 mg PO BID 03/21/19 03/21/19 Unknown History Eszopiclone 1 tab PO QHS 03/21/19 03/21/19 Unknown History Risperidone 2 mg PO DAILY 03/21/19 03/21/19 Unknown History Sertraline [Zoloft] 25 mg PO DAILY 03/21/19 03/21/19 Unknown History Fluticasone/Vilanterol [Breo 1 ea INHALATION DAILY #1 aer.[email or web address] 03/29/19 U nknown Rx Ellipta Inhaler] Levofloxacin [Levaquin] 500 mg PO DAILY #10 tab 03/29/19 Unknown Rx Methylprednisolone [Medrol Dosepak] 4 mg PO DIRECTED #1 pkg 03/29/19 Unknown Rx Omeprazole 20 mg PO DAILY #30 capsule.dr 03/29/19 Unknown Rx Oxycodone/APAP 5 mg/325 mg 1 ea PO Q6H PRN #20 tab 03/29/19 Unknown Rx [Percocet-5] - History of Present Illness -Gen Adult Nature of Presenting Problems: pt is a 53 yr old female presenting with 2 day complaint of worsening cough, shortness of breath and fever, tmax 103. pt reports hx of pneumonia with multiple admissions. pt reports this feel similar to prior pneumonias pt also complaint os bilateral leg swelling with left greater than right, denies chest pain. cough is productive with white sputum. Location of Pain/Injury: reports: none Pain Radiation: reports: no radiation Quality of Pain: reports: none Severity: reports: moderate Onset/Duration: reports: 2 days ago, 3 days ago Timing: reports: changing over time, getting worse Context/Activities at Onset: reports: light activity Associated Symptoms: reports: cough, fever/chills, shortness of breath. denies: back/neck pain, chest pain, dizziness, EENT symptoms, genitourinary problems, headaches, sinus congestion/drainage, nausea, vomiting Similar Symptoms Previously?: Yes Recently seen or treated by another doctor?: Yes Review of Systems - Adult - REVIEW OF SYSTEMS - ADULT Constitutional: reports: chills, fever (tmax 103), fatique Eyes: reports: no symptoms reported Ears, Nose, Mouth & Throat: denies: ear pain, sinus problem, throat pain Cardiovascular: reports: edema. denies: chest pain, palpitations, syncope Respiratory: reports: cough, dyspnea on exertion, shortness of breath, wheezing Gastrointestinal: denies: abdominal pain, nausea Genitourinary: reports: no symptoms reported Musculoskeletal: reports: muscle aches. denies: muscle weakness Integumentary: reports: no symptoms reported Neurological: denies: dizziness/vertigo, headache/migraines, syncope Psychiatric: reports: no symptoms reported Endocrine: reports: no symptoms reported Hematologic/Lymphatic: reports: no symptoms reported Allergic/Immunologic: reports: no symptoms reported All Other Systems: Reviewed and Negative Past History - Adult - PAST MEDICAL HISTORY-ADULT Review of Records: reports: Old Records Reviewed, Nursing Assessment Review, Medications Reviewed, Social history reviewed & non-contributory. 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 on dangers of tobacco.: Discussed manners to quit use, and f/u contacts for add'l counseling. Substance Use: denies Physical Exam-General - PHYSICAL EXAM-ADULT Initial Vital Signs Reviewed: Yes - CONSTITUTIONAL General Appearance: alert, mild distress - EYES Eyes: PERRL/EOMI - HEAD, EARS, NOSE, MOUTH & THROAT HENMT: normocephalic/atraumatic, moist mucous membranes, normal ENT inspection - NECK Neck: non-tender, full range of motion, supple, normal inspection - RESPIRATORY Respiratory: respiratory distress (mild), rhonchi (diffuse wet rhonchi, worse on right), wheezing (diffuse wheezing-worse on right), increased rate. negative: accessory muscle use, retractions - CARDIOVASCULAR Cardiovascular: normal peripheral pulses, tachycardia - GASTROINTESTINAL (ABDOMEN) Abdominal Exam: normal bowel sounds, non tender, soft - LYMPHATIC Lymphatic: no adenopathy - MUSCULOSKELETAL Back Exam: normal inspection Extremity: pedal edema (2+pitting edema to left leg 1+ptiing edema to right leg) - SKIN Integumentary: normal color, normal turgor, warm/dry - NEUROLOGIC Neurologic: grossly normal, no motor/sensory deficits - PSYCHIATRIC Psych/Mental Status: normal mood/affect Progress - PLAN OF CARE/RESULTS Progress/Plan/Lab Results: Vital Signs - 8 hr 06/15/19 01:11 Temperature 98.4 F Pulse Rate 122 H Respiratory Rate 26 H Blood Pressure 97/62 O2 Sat by Pulse Oximetry 80 L Orders Category Date Time Status Nursing- Obtain EKG once Care 06/15/19 01:20 Active CHEST-PORTABLE [RAD] Stat Exams 06/15/19 01:[address] THORAX W/CONTRAST [CT] Stat Exams 06/15/19 01:19 Ordered ABG [RESP] Routine Lab 06/15/19 01:19 Ordered BLOOD CULTURE [BLDCUL] Stat Lab 06/15/19 01:18 Uncollected CBC WITH ELECTRONIC DIFF [HEME] Stat Lab 06/15/19 01:18 Uncollected COMPREHENSIVE METABOLIC PANEL [CHEM] Stat Lab 06/15/19 01:18 Uncollected DIRECT STREP Stat Lab 06/15/19 01:20 Ordered INFLUENZA SCREEN A/B Stat Lab 06/15/19 01:20 Uncollected LACTATE, PLASMA [CHEM] Stat Lab 06/15/19 01:21 Uncollected PRO B-NATRIURETIC PEPTIDE Stat Lab 06/15/19 01:19 Uncollected PROTIME WITH INR [COAG] Stat Lab 06/15/19 01:19 Uncollected SPUTUM CULTURE WITH GRAM STAIN [RM] Stat Lab 06/15/19 01:18 Uncollected TROPONIN T HIGH SENSITIVITY Stat Lab 06/15/19 01:19 Uncollected URINALYSIS W/POSS RFLX CULT [URINALYSIS] Stat Lab 06/15/19 01:20 Uncollected 0.9% Sodium Chloride Inj [Ns] 1,000 ml Med 06/15/19 01:21 Active IV 999 mls/hr Albuterol 2.5MG/Ipratrop 0.5MG [Duoneb (A & A)] Med 06/15/19 01:21 Discontinued 9 ml INH NOW ONE CefEPIME [Maxipime] 2 gm Med 06/15/19 01:18 Active 0.9% Sodium Chloride Inj [Ns] 100 ml IV NOW Methylprednisolone Sod Succ [Solu-Medrol] Med 06/15/19 01:18 Discontinued 125 mg IV STAT STA Pharmacy Order [Vancomycin IV Per Pharmacy] Med 06/15/19 01:30 Ordered 1 each MISC DIRECTED Aerosol Treatments Stat Oth 06/15/19 01:21 Active Pulse Oximetry Stat Oth 06/15/19 01:18 Active EKG [EKG] Stat Ther 06/15/19 01:20 Ordered Result Diagrams: 06/15/19 01:31 06/15/19 01:31 - REASSESSMENT Reassessment #1 Time Reassessed: 03:46 Status: improving (FTER MEDS, NEB TREATMENTS. Given IV maxepime and vanc for sepsis d/t pneumonia.) - EKG 1 Time of EKG reading by physician:: 03:26 EKG Read and Signed by:: Jamie Payan EKG Interpretation (*Must complete 3 of following elements*): Abnormal Rate: 127 Rhythm: sinus tach Hana: normal QRS: other (early transition) [facility] Interval: normal ST Wave: non-specific ST changes - XRAY 1 XRAY Study: Chest Impression: Abnormal (read by me at 0200: bilateral infiltrates, poor inspiration) - CT/MRI 1 CT Study: Angiogram, Thorax Impression: Abnormal ([facility] ([place]) Extensive/diffuse course airspace opacities throughout each lung, similar to prior study. Differential includes pneumonia, pulmonary edema, pulmonary alveolar proteinosis) Comparison with other Films: no changes - CONSULTS/PCP/HOSPITALIST Notification #1 *Consult/PCP/Hospitalist*: Raoul (hospitalist) paged at 0350 Time Discussed: 03:54 Consult Disposition: Will see in ED, Admit Departure - Departure Date of Disposition Decision: 06/15/19 Time of Disposition Decision: 03:51 DIAGNOSIS: Hyponatremia syndrome, Tobacco use disorder, continuous Pneumonia of both lungs due to infectious organism Qualifiers: Lung location: unspecified part of lung Qualified Code(s): J18.9 - Pneumonia, unspecified organism Sepsis without acute organ dysfunction Qualifiers: Sepsis type: sepsis due to unspecified organism Qualified Code(s): A41.9 - Sepsis, unspecified organism Disposition: ADMITTED INPATIENT 09 Certified Medical Emergency: Emergent Condition: Fair Referrals and Follow-Ups: None,PCP [Primary Care Provider] - - Critical Care Note This patient required my direct & personal management of CC.: Yes Total Time (mins): 40 Critical Care Statement: This patient required my direct personal management to treat or rule out processes, the absence of which, could potentiallly result in sudden, clinically significant life or limb threatening deterioration. Attestation - Physician/ CHELI Attestation Patient care was provided by Advanced Practice Provider:: No The physician spent face to face time with patient:: Yes Advanced Practice Provider documentation review:: Supervising physician onsite and consulted in the evaluation and care of this patient. The physician did have a face to face encounter with the patient. This chart was documented by the indicated scribe, (Ashanti Landaverde Scribe) and accurately reflects the services I performed and decisions made by me, Jamie Payan MD, as attested by the provider's signature.
[2019-06-15 04:14] LABS: BILIRUBIN URINE NEGATIVE (NEGATIVE); BLOOD URINE NEGATIVE (NEGATIVE); COLOR STRAW; GLUCOSE URINE NEGATIVE (NEGATIVE); KETONE URINE NEGATIVE (NEGATIVE); LEUKOCYTES URINE NEGATIVE (NEGATIVE); NITRITE URINE NEGATIVE (NEGATIVE); PROTEIN URINE NEGATIVE (NEGATIVE); SP GRAVITY URINE 1.018; TURBIDITY URINE CLEAR (CLEAR); UROBILINOGEN URINE NORMAL (NORMAL)
[2019-06-15 04:16] LABS: UR EPITHELIAL CELLS <10 /HPF (<10); URINE BACTERIA NEGATIVE /HPF; URINE RBC <10 /HPF (<10); URINE WBC <10 /HPF (<10)
[2019-06-15] MEDS ORDERED: NS 50 ML ONE (05:30)
--- NOTE | 2019-06-15 07:05 | HISTORY AND PHYSICAL ---
CHIEF COMPLAINT: Shortness of breath. PRIMARY CARE PROVIDER: Eliana Driver MD HISTORY OF PRESENT ILLNESS: This is a 53-year-old female who comes into the Emergency Room after having shortness of breath over the last 2 weeks. She apparently saw Dr. Eliana Driver at some point and was put on Levaquin. She was here in March of this year for the same thing. She has chronic pneumonitis as well as pneumonia and she continues to use tobacco products. She was noted to be tachycardic and hypotensive. A chest x-ray and CT scan of her lungs showed coarse air space opacities throughout each lung similar to the previous study. She will be admitted to the ICU for further evaluation and treatment. PAST MEDICAL HISTORY: Chronic pneumonitis or pneumonia, vitamin B12 deficiency, chronic nicotine use, anxiety, and bipolar disorder. PREVIOUS SURGICAL HISTORY: Cardiac catheterization in 2011, bilateral breast reduction, cholecystectomy, hysterectomy, left brachial cyst repair, left hip repair, and left humeral repair. ALLERGIES: Penicillin. SOCIAL HISTORY: She is with 3 children. She smokes less than a pack of cigarettes per day. No alcohol. No illicit drugs. FAMILY HISTORY: Father has diabetes and dementia and is alive. Mother had bypass surgery and at age 61. HOME MEDICATIONS: Zoloft 50 mg p.o. daily, risperidone 2 mg p.o. daily, esomeprazole 20 mg p.o. daily, Depakote 500 mg p.o. daily, and benztropine 0.5 mg p.o. nightly at bedtime. REVIEW OF SYSTEMS: A 14 point review of systems was conducted with the patient. She was positive for cough, fever, chills, and shortness of breath All other systems were reviewed and found to be negative. PHYSICAL EXAMINATION: VITAL SIGNS: Temp is 98.4, pulse 122, respirations 17, blood pressure 91/63, and oxygen saturation 95% on 4 L nasal cannula. GENERAL: A 53-year-old female lying in the E.R. stretcher. She has a depressed affect. She is alert and oriented times 3. HEENT: Head is atraumatic, normocephalic. Pupils are equal, round, and reactive to light. Extraocular eye movement is intact. Sclerae are anicteric. Conjunctivae are pink. Oral mucosa is moist. NECK: Supple. No JVD. No thyromegaly. Trachea is midline. No cervical lymphadenopathy. CARDIAC: S1 and S2 are appreciated. No murmurs, gallops, or rubs. She is tachycardic. LUNGS: Coarse crepitations are noted throughout bilateral air dewitt. No wheezing. Symmetric rise and fall with respirations. ABDOMEN: Soft, nondistended, and nontender. Bowel sounds are present in all 4 quadrants, normoactive. No pulsatile mass. No organomegaly. EXTREMITIES: No clubbing, cyanosis, or edema. Pedal pulses are 1+ bilaterally. GENITOURINARY: No bladder distention. The patient voids. Otherwise, deferred. NEUROLOGICAL: Alert and oriented times 3. No focal motor deficits. Otherwise, nonfocal examination. DIAGNOSTIC DATA: CT of the chest shows dense bilateral air space disease throughout bilateral lungs. LABORATORY DATA: WBC is 16.94, hemoglobin 9.3, hematocrit 29.1, and platelet count 427. ABG: PH is 7.38, pCO2 50, pO2 63, and bicarb 28. This was on 4 L nasal cannula. Sodium is 128, potassium 4.4, chloride 86, carbon dioxide 28, BUN 11, creatinine 0.8, and glucose 121. Urine: Unremarkable. ASSESSMENT: 1. Pneumonia versus pneumonitis. 2. Chronic tobacco use. 3. Hypotension. 4. Hyponatremia. 5. Leukocytosis. 6. Volume depletion. PLAN: Place the patient in the ICU. We will gently fluid hydrate. Continue to monitor her heart rate and blood pressure. Place the patient on vancomycin and Maxipime. Continue home medications. Check blood cultures. Trend lactate. Blood cultures are pending. Give DuoNebs. Further recommendations per the patient's clinical course. Dictated by TAJ Gibbs for Alex Silveira MD I have performed a face to face diagnostic evaluation. Labs/Xrays- reviewed, Exam- Chest- rhonchi, CV- regular, Abd- soft. A/P- Pneumonia- Admit, check blood cultures, IV ABX. Dr. Silveira cc: TAJ Gibbs MD Jagan Reddy, MD [facility]
[2019-06-15] MEDS ORDERED: ZOFRAN IV PRN (07:54)
--- NOTE | 2019-06-15 08:25 | Diag Imaging Result Doc PS360 ---
EXAM: CHEST-PORTABLE INDICATION: diff breathing TECHNIQUE: One view COMPARISON: 03/27/2019 FINDINGS: Inspiration is suboptimal. There is a surgical staple line associated with the right lung. The central vasculature is prominent indicating pulmonary venous congestion and there is vague perihilar and basilar infiltrate suggesting edema. Cardiac silhouette appears borderline to mildly prominent. IMPRESSION: Pulmonary venous congestion and vague infiltrates bilaterally likely representing edema. Electronically signed by Brian Stewart 06/15/2019 8:23 AM
[2019-06-15] MEDS: NS 1,000 ML IV SCH (08:36)
[2019-06-15] MEDS: LOVENOX SUBQ SCH (08:40)
[2019-06-15] MEDS: ZOLOFT PO SCH (08:41)
[2019-06-15] MEDS: DEPAKOTE PO SCH ×2 (08:41→20:41)
[2019-06-15] MEDS: RISPERDAL PO SCH (08:41)
[2019-06-15] MEDS ORDERED: PRILOSEC PO SCH (09:00)
[2019-06-15] MEDS ORDERED: SODIUM CHLORIDE 0.9% INJ SCH (09:00)
[2019-06-15] MEDS ORDERED: NEXIUM IV SCH (09:00)
[2019-06-15] MEDS: SOLU-MEDROL IV SCH ×2 (09:02→20:40)
--- NOTE | 2019-06-15 09:31 | Diag Imaging Result Doc PS360 ---
EXAM: CT THORAX W/CONTRAST INDICATION: cavitary pneumonia TECHNIQUE: This exam was performed using automated exposure control, adjustment of mA or kV according to patient size, and/or use of iterative reconstruction technique. COMPARISON: 07/09/2012 FINDINGS: There is a surgical staple line associated with the right upper lobe and also the right lung base indicating previous partial pneumonectomy. There is extensive patchy groundglass airspace opacity seen throughout both lungs. There is milder interstitial thickening. There were similar findings on the previous study from 2012 but the current study is much worse. Differential considerations include pulmonary edema, alveolar proteinosis, or atypical pneumonia. No cavitary pneumonia is appreciated. There is no pleural fluid collection and no pneumothorax. There is no cardiomegaly. There is nonspecific mild mediastinal and hilar lymphadenopathy, likely reactive. Limited views of the upper abdomen are essentially unremarkable. IMPRESSION: 1.Extensive diffuse patchy groundglass airspace opacities and milder interstitial thickening throughout both lungs. This pattern is nonspecific. Consider pulmonary edema, alveolar proteinosis, or an atypical pneumonia. 2.Nonspecific mild mediastinal and hilar lymphadenopathy, probably reactive. Electronically signed by Brian Stewart 06/15/2019 9:28 AM
[2019-06-15] MEDS ORDERED: DUONEB (A & A) INH SCH (10:00)
[2019-06-15] MEDS: MAXIPIME 1 GM in NS 50 ML IV SCH (12:21)
[2019-06-15] MEDS: TYLENOL PO PRN (12:35)
[2019-06-15 17:14] LABS: URINE SOURCE CATH
[2019-06-15 17:22] LABS: BILIRUBIN URINE NEGATIVE (NEGATIVE); BLOOD URINE NEGATIVE (NEGATIVE); COLOR YELLOW; GLUCOSE URINE NEGATIVE (NEGATIVE); KETONE URINE NEGATIVE (NEGATIVE); LEUKOCYTES URINE NEGATIVE (NEGATIVE); NITRITE URINE NEGATIVE (NEGATIVE); PH URINE 5.5; PROTEIN URINE NEGATIVE (NEGATIVE); SP GRAVITY URINE 1.026; TURBIDITY URINE CLEAR (CLEAR); UROBILINOGEN URINE NORMAL (NORMAL)
[2019-06-15 17:23] LABS: UR EPITHELIAL CELLS <10 /HPF (<10); URINE BACTERIA NEGATIVE /HPF; URINE RBC <10 /HPF (<10); URINE WBC <10 /HPF (<10)
[2019-06-15] MEDS: PROTONIX IV SCH (20:41)
[2019-06-15] MEDS: COGENTIN PO SCH (20:41)
[2019-06-15] MEDS: VENTOLIN HFA INH PRN (22:30)
[2019-06-16] MEDS: SODIUM CHLORIDE 0.9% INJ SCH ×2 (00:26→20:27)
[2019-06-16] MEDS: MAXIPIME 1 GM in NS 50 ML IV SCH ×2 (00:27→12:31)
[2019-06-16] MEDS: SOLU-MEDROL IV SCH ×3 (00:27→16:36)
[2019-06-16] MEDS: TYLENOL PO PRN ×3 (00:28→20:26)
[2019-06-16] MEDS: NS 1,000 ML IV SCH ×2 (00:28→16:36)
[2019-06-16] MEDS: VANCOMYCIN 1,750 MG in NS 250 ML IV SCH (05:05)
[2019-06-16] MEDS: RISPERDAL PO SCH (08:16)
[2019-06-16] MEDS: ZOLOFT PO SCH (08:16)
[2019-06-16] MEDS: DEPAKOTE PO SCH ×2 (08:16→20:27)
[2019-06-16] MEDS: LOVENOX SUBQ SCH (08:16)
[2019-06-16 09:57] LABS: AGAP 12; BASO# 0.02 X1000 (0.0-0.2); BASO% 0.1 % (0.0-0.8); BUN 10 mg/dL (8-22); CALCIUM 9.4 mg/dL (8.8-10.2); CHLORIDE 97 mmol/L (98-107); COSMO 274; CREATININE 0.6 mg/dL (0.5-0.9); ESTIMATED GFR > 60; GLUCOSE 127 mg/dL (70-104); HEMATOCRIT 30.5 % (37.0-47.0); HEMOGLOBIN 9.4 g/dL (12.0-16.0); IMM GRAN# 0.06 X1000 (0.0-0.04); IMM GRAN% 0.3 % (0.0-0.5); LYMPH# 1.16 X1000 (1.2-3.4); LYMPH% 5.4 % (20.5-51.1); MCHC 30.8 g/dL (33-37); MCV 94.1 FL (81-99); MONO# 1.61 X1000 (0.11-0.59); MONO% 7.4 % (1.7-9.3); MPV 10.1 FL (7.4-10.4); NEUT# 18.79 X1000 (1.4-6.5); NEUT% 86.8 % (42.2-75.2); PLT 431 X1000 (130-400); POTASSIUM 4.9 mmol/L (3.5-5.1); RBC 3.24 XMIL (4.2-5.4); RDW 14.1 % (11.5-14.5); SODIUM 137 mmol/L (136-145); TCO2 28 mmol/L (25-35); WBC 21.64 X1000 (4.8-10.8)
[2019-06-16 10:04] LABS: BANDS 10 % (0-1); LYMPHS 4 % (21-51); MONO 4 % (1-9); SEGS 82 % (42-75)
[2019-06-16] MEDS: TORADOL IV SCH ×2 (12:31→20:26)
--- NOTE | 2019-06-16 12:54 | PROGRESS NOTE ---
DATE: 06/16/2019 SUBJECTIVE: I saw the patient yesterday morning as well as today. 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 The patient is well known to this hospital. The patient is on non-rebreather with bilateral infiltrates. Today, she has some pain and no complaints. PAST MEDICAL HISTORY: Reviewed. PAST SURGICAL HISTORY: Reviewed. MEDICINES: Reviewed. ALLERGIES: Penicillin. OBJECTIVE: On examination, vitals show afebrile. Pulse oximetry 100 percent. Hemodynamics are stable. HEENT: She is on non-rebreather and scattered squeaks. Distant heart sounds. Abdomen: Belly is soft and nontender. Known focal symptoms. INCOMPLETE REPORT -- DICTATION STOPPED HERE. cc: Mauricio Driver MD
[2019-06-16] MEDS: VENTOLIN HFA INH PRN (20:05)
[2019-06-16] MEDS: PROTONIX IV SCH (20:26)
[2019-06-16] MEDS: COGENTIN PO SCH (20:27)
[2019-06-17] MEDS: TORADOL IV SCH ×5 (00:36→17:33)
[2019-06-17] MEDS: SOLU-MEDROL IV SCH ×3 (00:37→16:40)
[2019-06-17] MEDS: MAXIPIME 1 GM in NS 50 ML IV SCH ×4 (00:37→22:44)
--- NOTE | 2019-06-17 04:11 | PROGRESS NOTE ---
DATE: 06/16/2019 ADDENDUM: Please ignore the previous dictation. It stopped abruptly because I got another phone call and put it on hold. A 53-year-old, white female admitted yesterday by the hospitalist with acute respiratory failure due to bilateral infiltrates. The patient is well known to this hospital with extrinsic allergic alveolitis. The patient was isolated to rule out Covid-19 virus. The patient was seen yesterday morning as well as today. Upon questioning, she has had some pain. Eating well. She is on nonrebreather on 100%. PAST MEDICAL HISTORY: Reviewed. PAST SURGICAL HISTORY: Reviewed. MEDICINES: Reviewed. ALLERGIES: Penicillin. PHYSICAL EXAMINATION: She is afebrile and hemodynamics were stable on 100%. HEENT: Examination within normal limits. She is on a nonrebreather. Chest: There is bilateral air entry with rhonchi. Heart sounds are very distant. Belly is soft, obese, nontender. No peripheral edema. [place] was placed. INVESTIGATIONS: White cell count 21.6, hematocrit 30.5, platelets 431,000. Sodium 137, potassium 4.9, BUN 10, creatinine 0.6, glucose 9.4. Lactate was high. TSH is normal. Urinalysis is clear. Chest x-ray, bilateral infiltrates. Chest CT, extensive diffuse ground-glass airspace opacities. Nonspecific lymph nodes. ASSESSMENT AND PLAN: 1. 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 Rule out Covid-19. Continue oxygen protocol. 2. Antibiotics with vancomycin and cefepime. 3. Deep vein thrombosis and gastrointestinal prophylaxis as per order sheet. 4. Bipolar. Resume medicines. 5. Intravenous Lasix was given and routine followup on a daily basis. Discussed the plan of care with the patient as well as the family and the nurses. LEVEL OF DOCUMENTATION: 35 minutes. cc: Mauricio Driver MD
[2019-06-17] MEDS: VANCOMYCIN 1,750 MG in NS 250 ML IV SCH (05:15)
--- NOTE | 2019-06-17 07:35 | EKG Report ---
Test Performed on : 06/15/2019 03:08:43 AM Test Reason : SOB Blood Pressure : / mmHG Vent. Rate : 127 BPM Atrial Rate : 127 BPM P-R Int : 166 ms QRS Dur : 082 ms QT Int : 226 ms P-R-T Axes : 042 044 250 degrees QTc Int : 328 ms Sinus tachycardia. Nonspecific ST and T wave abnormality Abnormal ECG When compared with ECG of 22-MAR-2019 06:25, Nonspecific T wave abnormality, worse in Lateral leads Unconfirmed Result
--- NOTE | 2019-06-17 07:39 | Diag Imaging Result Doc PS360 ---
CHEST-1 VIEW - 06/17/2019 INDICATION: SOB COMPARISON: 06/15/2019 FINDINGS: There are extensive bilateral mixed infiltrates. These have severely worsened since prior. There are probably trace pleural effusions. Heart size remains stable. IMPRESSION: Extensive bilateral infiltrates. Severe worsening from prior. Compatible with ARDS, pulmonary edema, or pneumonia/viral infection. Electronically signed by Shan Tong 06/17/2019 7:37 AM
[2019-06-17] MEDS: RISPERDAL PO SCH (08:32)
[2019-06-17] MEDS: DEPAKOTE PO SCH ×2 (08:32→20:29)
[2019-06-17] MEDS: NS 1,000 ML IV SCH ×3 (08:32→22:44)
[2019-06-17] MEDS: LOVENOX SUBQ SCH (08:32)
[2019-06-17] MEDS: ZOLOFT PO SCH (08:32)
[2019-06-17] MEDS ORDERED: LASIX IV ONE (09:02)
[2019-06-17 09:29] LABS: BASO# 0.03 X1000 (0.0-0.2); BASO% 0.2 % (0.0-0.8); HEMATOCRIT 29.3 % (37.0-47.0); HEMOGLOBIN 8.8 g/dL (12.0-16.0); IMM GRAN# 0.04 X1000 (0.0-0.04); IMM GRAN% 0.3 % (0.0-0.5); LYMPH# 1.69 X1000 (1.2-3.4); LYMPH% 11.3 % (20.5-51.1); MCH 28.9 PG (27-31); MCV 96.1 FL (81-99); MONO# 1.08 X1000 (0.11-0.59); MONO% 7.2 % (1.7-9.3); MPV 9.5 FL (7.4-10.4); NEUT# 12.16 X1000 (1.4-6.5); PLT 438 X1000 (130-400); RBC 3.05 XMIL (4.2-5.4); RDW 13.9 % (11.5-14.5)
[2019-06-17 09:56] LABS: AGAP 10; BUN 18 mg/dL (8-22); CALCIUM 8.7 mg/dL (8.8-10.2); CHLORIDE 97 mmol/L (98-107); COSMO 270; CREATININE 0.6 mg/dL (0.5-0.9); ESTIMATED GFR > 60; GLUCOSE 131 mg/dL (70-104); POTASSIUM 4.8 mmol/L (3.5-5.1); SODIUM 133 mmol/L (136-145); TCO2 26 mmol/L (25-35)
[2019-06-17] MEDS: TYLENOL PO PRN (16:41)
--- NOTE | 2019-06-17 17:37 | PROGRESS NOTE ---
DATE: 06/17/2019 SUBJECTIVE: The patient continues to be hypoxic with the Ventimask. X-ray is worsening. Hemodynamics were stable. PHYSICAL EXAMINATION: Temperature is 97 degrees. Tachycardic, tachypneic. Physical examination not performed. INVESTIGATIONS: White cell count 15, hematocrit 29.3, platelet count 438,000. Sodium 133, potassium 4.8, BUN 18, creatinine 0.6, glucose 270. Chest x-ray, worsening of infiltrates. Flu test was negative. Blood cultures were negative. Covid-19 is pending. ASSESSMENT AND PLAN: 1. Acute hypoxic failure, bilateral interstitial infiltrates. Follow up on Covid-19 test. 2. Oxygen protocol. 3. Deep vein thrombosis and gastrointestinal prophylaxis. 4. Daily monitoring of chest x-ray, CBC, SMA-7. Continue on intravenous steroids, intravenous antibiotics. Added Lasix once daily. 5. Bipolar disorder, stable. 6. Currently on steroids, vancomycin, and cefepime. LEVEL OF DOCUMENTATION: 25 minutes. cc: Mauricio Driver MD
[2019-06-17] MEDS: SODIUM CHLORIDE 0.9% INJ SCH (20:28)
[2019-06-17] MEDS: PROTONIX IV SCH (20:28)
[2019-06-17] MEDS: COGENTIN PO SCH (20:31)
[2019-06-18] MEDS: TORADOL IV SCH ×5 (00:52→19:48)
[2019-06-18] MEDS: SOLU-MEDROL IV SCH ×3 (00:52→17:21)
[2019-06-18] MEDS: NS 1,000 ML IV SCH ×3 (01:52→21:49)
[2019-06-18] MEDS: VANCOMYCIN 1,750 MG in NS 250 ML IV SCH (03:16)
[2019-06-18 06:33] LABS: BASO# 0.01 X1000 (0.0-0.2); BASO% 0.1 % (0.0-0.8); HEMATOCRIT 29.6 % (37.0-47.0); HEMOGLOBIN 9.1 g/dL (12.0-16.0); LYMPH# 1.07 X1000 (1.2-3.4); LYMPH% 10.4 % (20.5-51.1); MCH 28.9 PG (27-31); MCHC 30.7 g/dL (33-37); MONO# 0.49 X1000 (0.11-0.59); MONO% 4.8 % (1.7-9.3); MPV 9.9 FL (7.4-10.4); PLT 407 X1000 (130-400); RBC 3.15 XMIL (4.2-5.4); RDW 13.7 % (11.5-14.5); WBC 10.28 X1000 (4.8-10.8)
--- NOTE | 2019-06-18 06:45 | Diag Imaging Result Doc PS360 ---
CHEST-1 VIEW - 06/18/2019 INDICATION: SOB COMPARISON: 06/17/2019 FINDINGS: There has been improvement in the diffuse bilateral infiltrates. Heart size remains top normal. Lung volumes remain low. No pneumothorax or significant pleural effusion. IMPRESSION: Improvement in the bilateral infiltrates. Electronically signed by Shan Tong 06/18/2019 6:43 AM
[2019-06-18 07:02] LABS: AGAP 14; BUN 18 mg/dL (8-22); CALCIUM 8.9 mg/dL (8.8-10.2); CHLORIDE 92 mmol/L (98-107); COSMO 270; CREATININE 0.6 mg/dL (0.5-0.9); ESTIMATED GFR > 60; GLUCOSE 123 mg/dL (70-104); POTASSIUM 4.5 mmol/L (3.5-5.1); SODIUM 133 mmol/L (136-145); TCO2 27 mmol/L (25-35)
[2019-06-18] MEDS: LOVENOX SUBQ SCH (08:57)
[2019-06-18] MEDS: LASIX IV SCH (08:57)
[2019-06-18] MEDS: RISPERDAL PO SCH (08:57)
[2019-06-18] MEDS: ZOLOFT PO SCH (08:57)
[2019-06-18] MEDS: DEPAKOTE PO SCH ×3 (08:57→21:49)
[2019-06-18] MEDS: TYLENOL PO PRN ×2 (08:57→17:21)
[2019-06-18] MEDS: MAXIPIME 1 GM in NS 50 ML IV SCH (11:42)
[2019-06-18] MEDS: VENTOLIN HFA INH PRN (16:42)
--- NOTE | 2019-06-18 18:34 | PROGRESS NOTE ---
DATE: 06/17/2019 SUBJECTIVE: The patient is out of the bed. The patient was seen through the glass door and according to the nurses, she is doing much better. Oxygen is weaned off. Chest x-ray is improving, and she is saturating about 96%. OBJECTIVE: Vital signs: Temperature is 98 degrees, pulse 69. Vitals are stable. 3 L nasal cannula at 96%. Intake and output negative -2 L. Physical exam: No change. INVESTIGATIONS: CBC: White cell count 10, hematocrit 29, platelets 407,000. Sodium 133, potassium 4.5, BUN 18, creatinine 0.6, glucose 123. Chest x-ray: Improving bilateral infiltrates. ASSESSMENT AND PLAN: 1. Waiting for Coronavirus Disease 2019. Continue isolation. 2. Discontinue [place]. 3. Continue with deep venous thrombosis and gastrointestinal prophylaxis. 4. Intravenous antibiotics, intravenous steroids, intravenous Lasix. I will repeat x-rays and the labs in the morning. She needs to be quarantined until the Coronavirus Disease 2019 results. She is well known to this hospital because of the extrinsic allergic alveolitis and slowly wean off oxygen, and we will follow up. LEVEL OF DOCUMENTATION: 25 minutes. cc: Mauricio Driver MD
[2019-06-18] MEDS: COGENTIN PO SCH ×2 (19:41→21:47)
[2019-06-18] MEDS: PROTONIX IV SCH ×3 (19:41→21:48)
[2019-06-18] MEDS: SODIUM CHLORIDE 0.9% INJ SCH (21:48)
[2019-06-19] MEDS: SOLU-MEDROL IV SCH ×3 (00:09→16:03)
[2019-06-19] MEDS: TORADOL IV SCH ×4 (00:09→20:12)
[2019-06-19] MEDS: MAXIPIME 1 GM in NS 50 ML IV SCH ×3 (00:09→23:30)
[2019-06-19] MEDS ORDERED: XANAX PO PRN (00:20)
[2019-06-19 02:41] LABS: BASO# 0.02 X1000 (0.0-0.2); BASO% 0.1 % (0.0-0.8); EOS# 0.06 X1000 (0.0-0.7); EOS% 0.4 % (0.0-10.0); HEMATOCRIT 31.8 % (37.0-47.0); HEMOGLOBIN 10.1 g/dL (12.0-16.0); IMM GRAN# 0.14 X1000 (0.0-0.04); LYMPH# 1.56 X1000 (1.2-3.4); LYMPH% 10.8 % (20.5-51.1); MCH 28.5 PG (27-31); MCHC 31.8 g/dL (33-37); MCV 89.8 FL (81-99); MONO# 1.32 X1000 (0.11-0.59); MONO% 9.1 % (1.7-9.3); MPV 9.7 FL (7.4-10.4); NEUT# 11.39 X1000 (1.4-6.5); NEUT% 78.6 % (42.2-75.2); PLT 468 X1000 (130-400); RBC 3.54 XMIL (4.2-5.4); RDW 13.3 % (11.5-14.5); WBC 14.49 X1000 (4.8-10.8)
[2019-06-19 03:07] LABS: ESTIMATED GFR > 60
[2019-06-19 03:21] LABS: AGAP 16; BUN 13 mg/dL (8-22); CALCIUM 9.1 mg/dL (8.8-10.2); CHLORIDE 88 mmol/L (98-107); COSMO 268; CREATININE 0.5 mg/dL (0.5-0.9); GLUCOSE 117 mg/dL (70-104); POTASSIUM 4.3 mmol/L (3.5-5.1); SODIUM 133 mmol/L (136-145); TCO2 29 mmol/L (25-35)
[2019-06-19] MEDS: TYLENOL PO PRN (03:45)
[2019-06-19] MEDS: VANCOMYCIN 1,750 MG in NS 250 ML IV SCH (03:48)
[2019-06-19] MEDS ORDERED: VANCOMYCIN 1,250 MG in NS 250 ML IV SCH (04:00)
--- NOTE | 2019-06-19 06:50 | Diag Imaging Result Doc PS360 ---
CHEST-1 VIEW - 06/19/2019 INDICATION: SOB COMPARISON: 06/18/2019 FINDINGS: Stable extensive bilateral infiltrates. Stable cardiomegaly. No pneumothorax or large pleural effusion. IMPRESSION: No change from prior. Electronically signed by Shan Tong 06/19/2019 6:47 AM
[2019-06-19] MEDS: LOVENOX SUBQ SCH (08:19)
[2019-06-19] MEDS: ZOLOFT PO SCH (08:19)
[2019-06-19] MEDS: DEPAKOTE PO SCH ×2 (08:19→20:14)
[2019-06-19] MEDS: LASIX IV SCH (08:19)
[2019-06-19] MEDS: RISPERDAL PO SCH (08:19)
--- NOTE | 2019-06-19 18:47 | PROGRESS NOTE ---
DATE: 06/19/2019 SUBJECTIVE: The patient was examined and out of the bed, anxious to go home. COVID-19 results are pending. The patient was seen this morning. PHYSICAL EXAMINATION: Vital signs: Temperature is 97 degrees. Vitals are stable. 3 L nasal cannula 100%. Physical exam no change. LABORATORY/DIAGNOSTIC DATA: Chest x-ray was stable infiltrates. CBC: White cell count 14, hematocrit 31, platelets 468,000. ABG pH is 7.38, PO2 63 on 36%, SMA 7 is normal. Microbiology; sputum cultures normal dagoberto. ASSESSMENT: 1. Bilateral infiltrates and interstitial extrinsic allergic alveolitis. 2. Slowly improving awaiting Coronavirus Disease 2019 (COVID 19) results. 3. The patient looks stable and will transfer out of the ICU in a step-down. PLAN OF CARE: 1. Please see the transfer orders awaiting COVID-19 results. 2. Continue IV antibiotic, steroids, IV Lasix and reassess the home oxygen evaluation. 3. Please see the transfer orders. Discussed the plan of care with the patient as well as the nursing staff. LEVEL OF DOCUMENTATION: 25 minutes cc: Mauricio Driver MD
[2019-06-19] MEDS: PROTONIX IV SCH (20:12)
[2019-06-19] MEDS: SODIUM CHLORIDE 0.9% INJ SCH (20:12)
[2019-06-19] MEDS: COGENTIN PO SCH (20:13)
[2019-06-20] MEDS: TORADOL IV SCH ×4 (00:28→17:32)
[2019-06-20] MEDS: SOLU-MEDROL IV SCH ×3 (00:28→17:27)
[2019-06-20 06:24] LABS: BASO# 0.02 X1000 (0.0-0.2); BASO% 0.2 % (0.0-0.8); EOS# 0.01 X1000 (0.0-0.7); EOS% 0.1 % (0.0-10.0); HEMATOCRIT 35.2 % (37.0-47.0); HEMOGLOBIN 11.4 g/dL (12.0-16.0); IMM GRAN# 0.15 X1000 (0.0-0.04); IMM GRAN% 1.4 % (0.0-0.5); LYMPH# 1.64 X1000 (1.2-3.4); LYMPH% 14.8 % (20.5-51.1); MCH 29.1 PG (27-31); MCHC 32.4 g/dL (33-37); MCV 89.8 FL (81-99); MONO# 0.66 X1000 (0.11-0.59); NEUT# 8.58 X1000 (1.4-6.5); NEUT% 77.5 % (42.2-75.2); PLT 473 X1000 (130-400); RBC 3.92 XMIL (4.2-5.4); RDW 13.2 % (11.5-14.5); WBC 11.06 X1000 (4.8-10.8)
[2019-06-20 06:33] LABS: INR 1.03; PROTIME 13.6 Seconds (11.0-16.0)
[2019-06-20 06:45] LABS: ESTIMATED GFR > 60
[2019-06-20 06:47] LABS: AGAP 17; BUN 13 mg/dL (8-22); CALCIUM 8.7 mg/dL (8.8-10.2); CHLORIDE 84 mmol/L (98-107); COSMO 264; CREATININE 0.6 mg/dL (0.5-0.9); GLUCOSE 162 mg/dL (70-104); POTASSIUM 3.7 mmol/L (3.5-5.1); SODIUM 130 mmol/L (136-145); TCO2 29 mmol/L (25-35)
--- NOTE | 2019-06-20 07:32 | Diag Imaging Result Doc PS360 ---
CHEST-1 VIEW - 06/20/2019 INDICATION: SOB COMPARISON: 06/19/2019 FINDINGS: There has been significant decrease in the density of the diffuse bilateral infiltrates. Heart size remains borderline enlarged. No pleural effusion. IMPRESSION: Significant decrease density of the diffuse bilateral infiltrates. Electronically signed by Shan Tong 06/20/2019 7:30 AM
[2019-06-20] MEDS: LOVENOX SUBQ SCH (09:27)
[2019-06-20] MEDS: RISPERDAL PO SCH (09:28)
[2019-06-20] MEDS: ZOLOFT PO SCH (09:28)
[2019-06-20] MEDS: DEPAKOTE PO SCH ×2 (09:28→22:50)
[2019-06-20] MEDS: LASIX IV SCH (09:28)
[2019-06-20] MEDS: MAXIPIME 1 GM in NS 50 ML IV SCH (11:39)
--- NOTE | 2019-06-20 18:37 | PROGRESS NOTE ---
DATE: 06/20/2019 SUBJECTIVE: The patient is getting better. Unable to get a PICC line IV access. Chest x-ray is improving. She is anxious to go home. She has home oxygen. COVID-19 test results were negative. EXAM: Afebrile. Vitals are stable.Chest: Status rhonchi. Heart: Sounds are regular. Abdomen: Belly is soft, nontender. No neurological deficits. INVESTIGATIONS: White cell count 11, hematocrit 35, platelets 433,000. PT/INR is normal. SMA 7 is normal. ProBNP was elevated. ASSESSMENT AND PLAN: 1. Acute lung injury due to extrinsic allergic alveolitis is improving. Continue IV antibiotics, IV steroids, wean off oxygen and repeat the chest x-ray in the morning. 2. Bipolar disorder. Stable. She continues to improve. We will discharge in the morning with outpatient steroids and antibiotics and PPI and home medications. Vaccinations are up-to- date. 3. Deep vein thrombosis and gastrointestinal prophylaxis as per order sheet. LEVEL OF DOCUMENTATION: 25 minutes. cc: Mauricio Driver MD
[2019-06-20] MEDS: COGENTIN PO SCH (22:51)
[2019-06-20] MEDS: SODIUM CHLORIDE 0.9% INJ SCH (22:51)
[2019-06-20] MEDS: PROTONIX IV SCH (22:51)
[2019-06-21] MEDS: SOLU-MEDROL IV SCH ×2 (01:26→09:06)
[2019-06-21] MEDS: TORADOL IV SCH ×2 (01:26→05:55)
[2019-06-21] MEDS: MAXIPIME 1 GM in NS 50 ML IV SCH (01:27)
[2019-06-21 06:40] LABS: BASO# 0.03 X1000 (0.0-0.2); BASO% 0.2 % (0.0-0.8); EOS# 0.04 X1000 (0.0-0.7); EOS% 0.3 % (0.0-10.0); HEMATOCRIT 35.3 % (37.0-47.0); HEMOGLOBIN 11.6 g/dL (12.0-16.0); IMM GRAN# 0.26 X1000 (0.0-0.04); LYMPH# 2.16 X1000 (1.2-3.4); LYMPH% 16.4 % (20.5-51.1); MCH 28.6 PG (27-31); MCHC 32.9 g/dL (33-37); MCV 87.2 FL (81-99); MONO# 1.06 X1000 (0.11-0.59); MPV 8.7 FL (7.4-10.4); NEUT# 9.65 X1000 (1.4-6.5); NEUT% 73.1 % (42.2-75.2); PLT 489 X1000 (130-400); RBC 4.05 XMIL (4.2-5.4)
--- NOTE | 2019-06-21 06:52 | Diag Imaging Result Doc PS360 ---
EXAM: CHEST-1 VIEW INDICATION: SOB TECHNIQUE: One view COMPARISON: 06/20/2019 FINDINGS: The mild diffuse interstitial infiltrates are approximately stable. No new consolidation is identified. Cardiac silhouette is stable. IMPRESSION: Stable chest. Electronically signed by Brian Stewart 06/21/2019 6:50 AM
[2019-06-21 07:09] LABS: ESTIMATED GFR > 60
[2019-06-21 07:10] LABS: AGAP 10; BUN 13 mg/dL (8-22); CALCIUM 8.8 mg/dL (8.8-10.2); CHLORIDE 83 mmol/L (98-107); COSMO 252; CREATININE 0.6 mg/dL (0.5-0.9); GLUCOSE 103 mg/dL (70-104); SODIUM 125 mmol/L (136-145); TCO2 32 mmol/L (25-35)
[2019-06-21 08:01] VITALS: BP 146/68
[2019-06-21] MEDS: DEPAKOTE PO SCH (09:06)
[2019-06-21] MEDS: RISPERDAL PO SCH (09:06)
[2019-06-21] MEDS: LOVENOX SUBQ SCH (09:07)
[2019-06-21] MEDS: ZOLOFT PO SCH (09:07)
--- NOTE | 2019-06-24 08:32 | DISCHARGE SUMMARY ---
ADMISSION DATE: 06/15/2019 DISCHARGE DATE: 06/21/2019 DISCHARGING DIAGNOSIS: Acute respiratory failure due to bilateral interstitial infiltrates due to hypersensitive pneumonitis. SECONDARY DIAGNOSES: 1. Chronic tobacco abuse. 2. Bipolar disorder. 3. Chronic anxiety. 4. Acid reflux disease. 5. B12 deficiency. 6. Left comminuted fracture of the humerus. BRIEF HISTORY: Please see the H and P that was done by hospitalist. In brief, she is a 53-year- old white female who was admitted to the ICU with shortness of breath, and hypoxemia due to bilateral infiltrates. The patient was admitted several times due to hypersensitive pneumonitis. During the ICU, patient was given 100% oxygen, IV antibiotics and IV steroids. DVT and GI prophylaxis were given. She also started on IV Lasix. She was ruled out for COVID-19. She came out of the isolation, and with present treatment infiltrates were a lot better. She was on oxygen and weaned after 2 L. The rest of the hospital course was uneventful. LABORATORY: White cell count 13.2, hematocrit 35, and platelets 489,000. Sodium 125, potassium 4, BUN 13, and creatinine 0.6. DISCHARGE INSTRUCTIONS: 1. Pneumococcal vaccine 13 was given 11/09/2018. 2. Depakote 500 p.o. b.i.d. 3. Zoloft 50 daily. 4. Benztropine 0.5 at bedtime. 5. Risperidone 20 mg daily. 6. Nexium 20 mg daily. 7. Levaquin 500 daily. 8. Medrol Dosepak. 9. Breo 1 puff daily. 10. Oxygen 2 L. 11. Follow up in my office in 10 days. cc: Mauricio Driver MD
== END 2019-06-21 09:46 | disposition home or self-care (01) | DRG 196 ==
LOC: ED 00:49 → SUATTDRO 00:50 → SUPCPDRO 00:50 → ICU 00:50 → 4N 06-19 14:11
PROVIDERS: ADMIT Internal Medicine; ATTEND Internal Medicine